=== PATIENT | male | born 1940 | race Caucasian/White ===

== ENCOUNTER 2017-08-09 12:52 | Emergency (ER) | payer MEDICARE, SELFPAY ==
[2017-08-09 13:16] VITALS: BP 161/83; PULSE 80; RESP 13; TEMP 36.6; O2SAT 97
--- NOTE | 2017-08-09 13:32 | DI.CT.S_ITS ---
PROCEDURE: CT ABDOMEN PELVIS W CON INDICATIONS: LLQ pain TECHNIQUE: After the administration of oral and intravenous contrast, 5 mm thick sections acquired from the diaphragms to the symphysis. 5 mm thick coronal and sagittal reformats were performed. For radiation dose reduction, the following was used: automated exposure control, adjustment of mA and/or kV according to patient size. COMPARISON: None. FINDINGS: Image quality: Excellent. ABDOMEN: Lung bases: Lung bases are clear. Heart size is normal. Solid organs: Liver is normal in size and enhancement. Gallbladder appears normal. Biliary system is non-dilated. Pancreas enhances normally. Spleen is normal in size and enhancement. No adrenal nodules. Kidneys are normal in size and enhancement, without hydronephrosis. There is several simple renal cortical cysts, the largest of which is exophytic from the upper posterior border of the left renal cortex, measuring up to 6.3 cm in maximal dimension. Peritoneum and bowel: Stomach, small bowel, and colon loops are normal in caliber and wall thickness. No free fluid or air. Nodes and vessels: No retroperitoneal or mesenteric adenopathy. Aorta and inferior vena cava are normal in caliber. Miscellaneous: No ventral hernias. PELVIS: Genitourinary: Bladder wall thickness is normal. A Husain catheter largely empties the bladder lumen. Miscellaneous: No inguinal hernias or adenopathy. Moderate diverticulosis is present along the sigmoid colon and there is definite acute diverticulitis involving the anterior border of the sigmoid colon at the junction with the descending colon where adjacent pericolonic edema is present but no peridiverticular abscess is found Bones: No suspicious bony lesions. No vertebral body compression fractures. IMPRESSION: Acute diverticulitis left lower quadrant at the junction of the descending [id number] sigmoid colon. No peridiverticular abscess is present. There is moderate diverticulosis elsewhere along the sigmoid colon. Husain catheter largely empties the lateral lumen. Dictated by: Carroll Sears M.D. on 08/09/2017 at 15:03 Approved by: Carroll Sears M.D. on 08/09/2017 at 15:09
[2017-08-09 14:04] LABS: Add Manual Diff / Slide Review NO; Basophils Percent Auto 0.3 % (0-2); Eosinophils Percent Auto 0.7 % (2-4); Hematocrit 45.5 % (41-53); Hemoglobin 15.5 g/dL (13.5-17.5); Lymphocytes Percent Auto 14.9 % (25-40); Mean Corpuscular Hemoglobin 30.3 PG (26-34); Mean Corpuscular Volume 88.9 fL (80-100); Monocytes Percent Auto 12.7 % (3-14); Neutrophils Absolute Auto 5600 /uL (3000-5900); Neutrophils Percent Auto 71.4 % (50-75); Platelet Count 183 X10^3/uL (150-400); Red Blood Cell Count 5.11 X10^6/uL (4.5-5.9); Red Cell Distribution Width 13.7 % (11.6-14.8); White Blood Cell Count 7.8 X10^3/uL (4.5-11.0)
[2017-08-09 14:17] LABS: Alanine Aminotransferase 26 IU/L (21-72); Albumin 4.2 g/dL (3.5-5.0); Albumin Globulin Ratio 1.3 (1.0-2.8); Alkaline Phosphatase 95 U/L (38-126); Aspartate Aminotransferase 26 IU/L (17-59); BUN Creatinine Ratio 17.8 (6-22); Blood Urea Nitrogen 16 mg/dL (9-20); Calcium 9.3 mg/dL (8.4-10.2); Carbon Dioxide 27 mmol/L (22-32); Chloride 99 mmol/L (98-107); Estimated Glomerular Filt Rate > 60.0 mL/min (>60); Globulin 3.3 g/dL (1.7-4.1); Glucose 87 mg/dL (80-110); HEMOLYSIS < 15 (0-50); Lipase 43 U/L (23-300); Potassium 4.3 mmol/L (3.4-5.1); Sodium 138 mmol/L (137-145); Total Protein 7.5 g/dL (6.3-8.2)
[2017-08-09 14:18] LABS: Lactate (Lactic Acid) 0.9 mmol/L (0.7-2.1)
[2017-08-09 14:32] VITALS: BP 135/81; PULSE 75; O2SAT 93
--- NOTE | 2017-08-09 15:35 | ED_ITS ---
HPI - Abdominal Pain General Chief Complaint: Abdominal Pain Stated Complaint: STATES, THINK I HAVE DIVERTICULITIS Time Seen by Provider: 08/09/17 13:03 History of Present Illness HPI narrative: HPI 76-year-old male with history of complicated diverticulitis with a now reversed ileostomy presents for evaluation of similar left lower quadrant pain of approximately 2 days duration, was evaluated in urgent care yesterday and started on ciprofloxacin and Flagyl; continues to take p.o. well, pass flatus and stool baseline, no dysuria or urinary frequency. No identifiable provoking or relieving factors. M/S/F/SocHx notable for: please see HPI; remainder reviewed with patient and in chart. ROS: Negative constitutional, eye, cardiovascular, pulmonary, GI, , MSK, skin , neurologic, psychiatric, endocrine unless noted in the HPI. Exam Gen: Pleasant, non-toxic appearing, resting comfortably. HEENT: NC, AT, PEERL, EOMI. Resp: Clear to auscultation bilaterally, normal work of breathing, no accessory muscle usage. Card: Regular rate and rhythm with no murmurs, rubs, or gallops, extremities warm and well perfused. GI: mild left lower quadrant tenderness to palpation, remainder of abdomen nontender to palpation, no rebound, no guarding. Well healed surgical scars. : No suprapubic tenderness to palpation. MSK: No visible deformities, strength and tone without visually appreciable deficit. Skin: Normal color with no visible lesions. Neuro: AO x 3, no facial asymmetry, vision and hearing WNL. Psych: Mood and affect appropriate. Labs / Imaging: WBC 7.8, Hb 15.5, Na 138, K 4.3, lactic 0.9, total bilirubin 1.0, AST 26, ALT 26 , ALP 95, lipase 43, Procalcitonin <0.05. UA - negative nitrate, negative leukocyte esterase, occasional bacteria. CT abdomen/pelvis: acute diverticulitis left lower quadrant of the junction the descending colon to anterior sigmoid colon. No diverticular abscess is present. There is moderate diverticulosis elsewhere along sigmoid colon. Husain catheter largely empties the bladder lumen. MDM Previous chart, nursing note, labs, imaging, and vitals reviewed. A: 76-year-old male with history of complicated diverticulitis with a now reversed ileostomy presents for evaluation of similar left lower quadrant pain of approximately 2 days duration, was evaluated in urgent care yesterday and started on ciprofloxacin and Flagyl; continues to take p.o. well, pass flatus and stool baseline, no dysuria or urinary frequency. DDx: diverticulitis, diverticulosis, constipation, colitis, acute appendicitis, pyelonephritis, UTI, uretolithiasis. Evaluation: CT with acute diverticulitis, no evidence complication by imaging, history, exam, labs. Recommend continuing ciprofloxacin and Flagyl. Return to care precautions provided. Given the patient's comp get past medical history recommend PCP follow-up in 1-2 days for repeat evaluation. Impression: diverticulitis (please reference below for remainder of encounter information) Related Data Home Medications Medication Instructions Recorded Confirmed acetaminophen 325 mg PO Q4-6H PRN 08/09/17 08/09/17 Previous Rx's Medication Instructions Recorded ciprofloxacin 500 mg tablet 500 mg PO BID #20 tab 08/08/17 metronidazole 500 mg tablet 500 mg PO TID #30 tab 08/08/17 Allergies Allergy/AdvReac Type Severity Reaction Status Date / Time codeine [CODEINE] AdvReac Mild UPSET Verified 08/08/17 12:39 STOMACH PFSH Social History Smoking Status: Never smoker Exam Initial Vital Signs Initial Vital Signs: Vital Signs Temperature 97.8 F 08/09/17 13:16 Pulse Rate 80 08/09/17 13:16 Respiratory Rate 13 08/09/17 13:16 Blood Pressure 161/83 H 08/09/17 13:16 Pulse Oximetry 97 08/09/17 13:16 Course Orders Ordered: ED Orders 08/09/17 13:32 CT abdomen pelvis w con Stat 08/09/17 13:55 Complete Blood Count AUTO DIFF Stat Comprehensive Metabolic Panel Stat Lactate (Lactic Acid) Stat Lipase Stat Vital Signs - 8 hr 08/09/17 13:16 08/09/17 14:32 Temperature 97.8 F Pulse Rate 80 75 Respiratory Rate 13 Blood Pressure 161/83 H Blood Pressure [Left Arm] 135/81 H Pulse Oximetry 97 93 MDM - Abdominal Pain Lab Data Result diagrams: 08/09/17 13:55 08/09/17 13:55 Lab Results 08/09/17 08/09/17 08/09/17 Range/Units 13:55 13:55 13:55 WBC 7.8 (4.5-11.0) X10^3/uL RBC 5.11 (4.5-5.9) X10^6/uL Hgb 15.5 (13.5-17.5) g/dL Hct 45.5 (41-53) % MCV 88.9 (80-100) fL MCH 30.3 (26-34) PG MCHC 34.0 (30-36) % RDW 13.7 (11.6-14.8) % Plt Count 183 (150-400) X10^3/uL Neut % (Auto) 71.4 (50-75) % Lymph % (Auto) 14.9 L (25-40) % [place] % (Auto) 12.7 (3-14) % Eos % (Auto) 0.7 L (2-4) % Baso % (Auto) 0.3 (0-2) % Neut # (Auto) 5600 (4433-4034) /uL Sodium 138 (137-145) mmol/L Potassium 4.3 (3.4-5.1) mmol/L Chloride 99 (98-107) mmol/L Carbon Dioxide 27 (22-32) mmol/L BUN 16 (9-20) mg/dL Creatinine 0.90 (0.66-1.25) mg/dL Estimated GFR > 60.0 (>60) mL/min BUN/Creatinine Ratio 17.8 (6-22) Glucose 87 (80-110) mg/dL Lactate 0.9 (0.7-2.1) mmol/L Calcium 9.3 (8.4-10.2) mg/dL Total Bilirubin 1.0 (0.2-1.3) mg/dL AST 26 (17-59) IU/L ALT 26 (21-72) IU/L Alkaline Phosphatase 95 (38-126) U/L Total Protein 7.5 (6.3-8.2) g/dL Albumin 4.2 (3.5-5.0) g/dL Globulin 3.3 (1.7-4.1) g/dL Albumin/Globulin Ratio 1.3 (1.0-2.8) Lipase 43 (23-300) U/L Discharge Plan Departure Prescriptions: No Action metronidazole [Flagyl] 500 mg tablet 500 mg PO TID Qty: 30 RF: 0 ciprofloxacin HCl [Cipro] 500 mg tablet 500 mg PO BID Qty: 20 RF: 0 acetaminophen 325 mg Tablet 325 mg PO Q4-6H PRN (Reason: Pain, Mild) RF: 0
== END 2017-08-09 15:59 | disposition home or self-care (01) ==
PROVIDERS: Emergency Provider Emergency Medicine; Family Provider Family Medicine; PCP Family Medicine
DX: K57.92 Diverticulitis of intestine, part unspecified, without perforation or abscess without bleeding (principal)
CPT/HCPCS: 36415; 74177; 80053; 83605; 83690; 85025; 99282; 99285; Q9967

== ENCOUNTER → 2017-08-16 06:51 | Outpatient (CLI) | payer MEDICARE, SELFPAY ==
[2017-08-16 07:51] LABS: Add Manual Diff / Slide Review NO; Basophils Percent Auto 0.5 % (0-2); Eosinophils Percent Auto 2.2 % (2-4); Hematocrit 46.6 % (41-53); Hemoglobin 15.5 g/dL (13.5-17.5); Lymphocytes Percent Auto 30.4 % (25-40); Mean Corpuscular HGB Conc 33.4 % (30-36); Mean Corpuscular Hemoglobin 29.7 PG (26-34); Mean Corpuscular Volume 88.9 fL (80-100); Neutrophils Absolute Auto 3100 /uL (3000-5900); Neutrophils Percent Auto 53.9 % (50-75); Platelet Count 246 X10^3/uL (150-400); Red Blood Cell Count 5.24 X10^6/uL (4.5-5.9); Red Cell Distribution Width 13.7 % (11.6-14.8); White Blood Cell Count 5.7 X10^3/uL (4.5-11.0)
[2017-08-16 09:01] LABS: Alanine Aminotransferase 28 IU/L (21-72); Albumin 3.9 g/dL (3.5-5.0); Albumin Globulin Ratio 1.1 (1.0-2.8); Alkaline Phosphatase 72 U/L (38-126); Aspartate Aminotransferase 30 IU/L (17-59); Bilirubin Total 0.7 mg/dL (0.2-1.3); Blood Urea Nitrogen 8 mg/dL (9-20); Calcium 9.4 mg/dL (8.4-10.2); Carbon Dioxide 27 mmol/L (22-32); Chloride 100 mmol/L (98-107); Cholesterol 173 mg/dL (140-199); Estimated Glomerular Filt Rate > 60.0 mL/min (>60); Globulin 3.5 g/dL (1.7-4.1); Glucose 84 mg/dL (80-110); HDL Cholesterol 52 mg/dL (40-60); HEMOLYSIS < 15 (0-50); LDL Cholesterol Calculated 110 mg/dL (<100); Potassium 4.2 mmol/L (3.4-5.1); Sodium 139 mmol/L (137-145); Total Protein 7.4 g/dL (6.3-8.2); Triglycerides 54 mg/dL (35-150)
[2017-08-16 09:25] LABS: Prostate Specific Antigen Scrn 0.873 ng/mL (0.1-4.0)
[2017-08-16 09:34] LABS: Thyroid Stimulating Hormone 4.82 uIU/mL (0.47-4.68)
== END ==
PROVIDERS: PCP Family Medicine; Visit Provider Family Medicine
DX: Z12.5 Encounter for screening for malignant neoplasm of prostate (principal); R68.83 Chills (without fever); E78.2 Mixed hyperlipidemia
CPT/HCPCS: 36415; 80053; 80061; 84443; 85025; G0103

== ENCOUNTER → 2017-09-16 10:12 | Outpatient (CLI) | payer MEDICARE, SELFPAY ==
[2017-09-16 11:33] LABS: Free T3, Triiodothyronine Free 3.16 pg/mL (2.77-5.27); Free T4, Direct Thyroxine 1.19 ng/dL (0.78-2.19)
[2017-09-16 11:46] LABS: Thyroid Stimulating Hormone 1.88 uIU/mL (0.47-4.68)
== END ==
PROVIDERS: PCP Family Medicine; Visit Provider Family Medicine
DX: E03.9 Hypothyroidism, unspecified (principal)
CPT/HCPCS: 84439; 84443; 84481

== ENCOUNTER 2017-11-16 19:39 | Emergency (ER) | payer MEDICARE, SELFPAY ==
[2017-11-16 19:50] VITALS: BP 176/113; PULSE 81; RESP 18; TEMP 36.8; O2SAT 97; BMI 19.8
[2017-11-16 19:59] VITALS: BP 158/77; PULSE 76; RESP 18; O2SAT 97
[2017-11-16] MEDS: SODIUM CHLORIDE 0.9% 1,000 ML 1000 ML IV (20:30)
[2017-11-16 20:34] LABS: Add Manual Diff / Slide Review NO; Basophils Percent Auto 0.4 % (0-2); Eosinophils Percent Auto 2.4 % (2-4); Hematocrit 44.8 % (41-53); Lymphocytes Percent Auto 28.6 % (25-40); Mean Corpuscular HGB Conc 33.5 % (30-36); Mean Corpuscular Hemoglobin 30.4 PG (26-34); Mean Corpuscular Volume 90.8 fL (80-100); Monocytes Percent Auto 16.4 % (3-14); Neutrophils Absolute Auto 3100 /uL (3000-5900); Neutrophils Percent Auto 52.2 % (50-75); Platelet Count 201 X10^3/uL (150-400); Red Blood Cell Count 4.94 X10^6/uL (4.5-5.9); Red Cell Distribution Width 14.6 % (11.6-14.8)
[2017-11-16 20:40] LABS: Blood Urea Nitrogen 18 mg/dL (9-20); Calcium 9.3 mg/dL (8.4-10.2); Carbon Dioxide 31 mmol/L (22-32); Chloride 103 mmol/L (98-107); Estimated Glomerular Filt Rate > 60.0 mL/min (>60); Glucose 90 mg/dL (80-110); HEMOLYSIS < 15 (0-50); Sodium 141 mmol/L (137-145)
[2017-11-16 20:50] VITALS: BP 162/55; PULSE 64; O2SAT 98
--- NOTE | 2017-11-16 21:08 | ED_ITS ---
HPI - Arrhythmia/Palpitations General Chief Complaint: Arrhythmia/Palpitations Stated Complaint: STATES HEART IS BEATING HARD, Time Seen by Provider: 11/16/17 20:03 Source: patient and family Mode of arrival: ambulatory Limitations: no limitations History of Present Illness HPI narrative: 77-year-old male with history of diverticulitis presents to the emergency department with multiple family members this evening with a chief complaint of palpitations and feeling generally unwell over the course of the day. His main complaint is of strong palpitations that have since resolved. He denies chest pain or shortness of breath. He denies any abdominal pain, nausea, vomiting or diarrhea. He has a recent history of diverticulitis and had been playing clear liquid diet up until the past few days. He denies fever or chills and is otherwise well. MD complaint: rapid heart beat, heart racing and palpitations Onset (ago): minute(s) Duration: now resolved Severity: mild Context: occurred during rest Associated symptoms: denies other symptoms Related Data Home Medications Medication Instructions Recorded Confirmed acetaminophen 325 mg PO Q4-6H PRN 08/09/17 08/25/17 Previous Rx's Medication Instructions Recorded ciprofloxacin 500 mg tablet 500 mg PO BID #20 tab 08/25/17 metronidazole 500 mg tablet 500 mg PO TID #30 tab 08/25/17 oxycodone-acetaminophen 5 mg-325 1 tab PO Q4-6H PRN #30 tab 11/08/17 mg tablet Allergies Allergy/AdvReac Type Severity Reaction Status Date / Time codeine [CODEINE] AdvReac Mild UPSET Verified 08/08/17 12:39 STOMACH Review of Systems Review of Systems All systems reviewed & are unremarkable except as noted in HPI and below Constitutional Denies chills, Denies fever(s), Denies lethargy and Reports weakness Eyes Denies change in vision, Denies eye discharge, Denies irritation and Denies loss of vision ENT Ears, Nose, Mouth, and Throat: Denies change in voice, Denies neck pain and Denies sore throat Cardiovascular Denies chest pain, Denies irregular heart rhythm, Denies lightheadedness, Reports palpitations, Denies dyspnea, Denies dyspnea on exertion and Denies orthopnea Respiratory Denies cough, Denies dyspnea, Denies dyspnea on exertion and Denies wheezing Gastrointestinal Gastrointestinal: Denies abdominal pain, Denies change in bowel habits, Denies diarrhea, Denies nausea and Denies vomiting Genitourinary Denies hematuria, Denies flank pain, Denies urinary incontinence and Denies urinary urgency Musculoskeletal Denies neck pain Integumentary/Breasts Denies pruritus, Denies erythema, Denies rash and Denies wounds Neurologic Denies confusion, Denies loss of vision and Reports weakness Psychiatric Denies anxiety, Denies confusion, Denies depression, Denies homicidal ideation and Denies suicidal ideation Endocrine Reports palpitations Hematologic/Lymphatic Denies easy bruising Allergic/Immunologic Denies wheezing [facility] Medical History Diverticular disease (Chronic) Social History Smoking Status: Never smoker Exam Narrative Exam Narrative: 77-year-old male in mild distress, visibly anxious, dehydrated with dry mucous membranes and tenting Initial Vital Signs Initial Vital Signs: Vital Signs Temperature 98.3 F 11/16/17 19:50 Pulse Rate 81 11/16/17 19:50 Respiratory Rate 18 11/16/17 19:50 Blood Pressure 176/113 H 11/16/17 19:50 Pulse Oximetry 97 11/16/17 19:50 Const General: cooperative, well developed, in distress and anxious Nutritional Appearance: well nourished Orientation: alert, awake, oriented x3 and not confused [facility] Head: normocephalic and atraumatic Ears: external ears normal and TM's normal bilaterally Nose: external nose normal and No nasal discharge Face and sinus: sinuses nontender, face symmetric, no sinus tenderness and dry mucous membranes Mouth: No oral mucosae normal and moist mucous membranes Teeth and gingiva: dentition normal Throat: tonsils normal and uvula midline Eyes General: appearance normal, both eyes and all related structures Eyelids: eyelids normal Conjunctivae: conjunctivae normal Sclera: sclerae normal Pupils: PERRL EOM: EOM intact bilaterally Neck Neck: normal visual inspection, trachea midline, No lymphadenopathy, No midline deformity and No JVD Lymphatic: No lymphedema Chest Chest: normal inspection of the chest Resp Effort & Inspection: normal respiratory effort, able to speak in complete sentences, no respiratory distress and no use of accessory muscles Auscultation: clear to auscultation bilaterally, no rales, no rhonchi and no wheezes Cardio Rate: regular rate Rhythm: regular rhythm Heart Sounds: no click, no gallops, no murmurs and no rubs Pulses: normal peripheral pulses GI Inspection: non-distended Palpation: soft, no hepatosplenomegaly, No guarding, No pulsatile mass and No tender Auscultation: normal bowel sounds Skin Other: warm, pink, dry, tenting Neuro General: alert, oriented x3, gait normal and no focal motor deficits Speech: speech normal Psych Appearance: well kempt Mental Status: mental status grossly normal Attitude: cooperative Thought Content: normal and suicidality Judgment: judgment good Course Orders Ordered: Discontinued Medications Sodium Chloride (Normal Saline 0.9%) 1,000 mls @ 1,000 mls/hr IV BOLUS ONE Stop: 11/16/17 21:27 Last Infusion: 11/16/17 21:33 Dose: 0 mls/hr Admin: 11/16/17 20:30 Dose: 1,000 mls/hr Vital Signs - 8 hr 11/16/17 19:50 11/16/17 19:59 11/16/17 20:50 Temperature 98.3 F Pulse Rate 81 76 64 Respiratory Rate 18 18 Blood Pressure 176/113 H Blood Pressure [Right Arm] 158/77 H 162/55 H Pulse Oximetry 97 97 98 11/16/17 21:34 11/16/17 21:52 Temperature Pulse Rate 62 59 L Respiratory Rate Blood Pressure Blood Pressure [Right Arm] 133/72 133/72 Pulse Oximetry 97 97 MDM - Arrhythmia/Palpitations Lab Data Result diagrams: 11/16/17 20:07 11/16/17 20:07 Lab Results 11/16/17 11/16/17 Range/Units 20:07 20:07 WBC 6.0 (4.5-11.0) X10^3/uL RBC 4.94 (4.5-5.9) X10^6/uL Hgb 15.0 (13.5-17.5) g/dL Hct 44.8 (41-53) % MCV 90.8 (80-100) fL MCH 30.4 (26-34) PG MCHC 33.5 (30-36) % RDW 14.6 (11.6-14.8) % Plt Count 201 (150-400) X10^3/uL Neut % (Auto) 52.2 (50-75) % Lymph % (Auto) 28.6 (25-40) % [place] % (Auto) 16.4 H (3-14) % Eos % (Auto) 2.4 (2-4) % Baso % (Auto) 0.4 (0-2) % Neut # (Auto) 3100 (1148-4278) /uL Sodium 141 (137-145) mmol/L Potassium 4.0 (3.4-5.1) mmol/L Chloride 103 (98-107) mmol/L Carbon Dioxide 31 (22-32) mmol/L BUN 18 (9-20) mg/dL Creatinine 0.90 (0.66-1.25) mg/dL Estimated GFR > 60.0 (>60) mL/min BUN/Creatinine Ratio 20.0 (6-22) Glucose 90 (80-110) mg/dL Calcium 9.3 (8.4-10.2) mg/dL Discharge Plan Departure Patient Disposition: Home Clinical Impression: Heart palpitations Discharge Date/Time: 11/16/17 22:31 Interventions: ED Discharge Assessment Last Done: 11/16/17 22:07 Instructions: DI for Palpitations Activity Restrictions/Additional Instructions: *You have been diagnosed with [ palpitations resolved ] *What to do: *Continue to take medications as directed *Follow up with your primary care provider in 2-3 days, call for an appointment. Let them know you were seen in the Emergency Department and that we ask that you be seen in follow up *Return to ER if you should have any new, worsening or concerning symptoms , such as [ ] Prescriptions: No Action oxycodone-acetaminophen 5-325 mg tablet 1 tab PO Q4-6H PRN (Reason: pain) Qty: 30 RF: 0 ciprofloxacin HCl [Cipro] 500 mg tablet 500 mg PO BID Qty: 20 RF: 2 metronidazole [Flagyl] 500 mg tablet 500 mg PO TID Qty: 30 RF: 2 acetaminophen 325 mg Tablet 325 mg PO Q4-6H PRN (Reason: Pain, Mild) RF: 0 Referrals: Gary Sanders MD [Primary Care Provider] -
[2017-11-16 21:34] VITALS: BP 133/72; PULSE 62; O2SAT 97
[2017-11-16 21:52] VITALS: BP 133/72; PULSE 59; O2SAT 97
== END 2017-11-16 22:31 | disposition home or self-care (01) ==
PROVIDERS: Emergency Provider Emergency Medicine; Family Provider Family Medicine; PCP Family Medicine
DX: R00.2 Palpitations (principal)
CPT/HCPCS: 80048; 85025; 93005; 96360; 99283; 99284

== ENCOUNTER → 2018-09-27 06:53 | Outpatient (CLI) | payer MEDICARE, SELFPAY ==
[2018-09-27 08:16] LABS: Alanine Aminotransferase 24 IU/L (21-72); Albumin 4.2 g/dL (3.5-5.0); Albumin Globulin Ratio 1.3 (1.0-2.8); Alkaline Phosphatase 78 U/L (38-126); Aspartate Aminotransferase 28 IU/L (17-59); BUN Creatinine Ratio 17.8 (6-22); Bilirubin Total 0.8 mg/dL (0.2-1.3); Blood Urea Nitrogen 16 mg/dL (9-20); Calcium 9.2 mg/dL (8.4-10.2); Carbon Dioxide 29 mmol/L (22-32); Chloride 102 mmol/L (98-107); Cholesterol 217 mg/dL (140-199); Estimated Glomerular Filt Rate > 60.0 mL/min (>60); Globulin 3.2 g/dL (1.7-4.1); Glucose 87 mg/dL (80-110); HDL Cholesterol 56 mg/dL (40-60); HEMOLYSIS < 15 (0-50); LDL Cholesterol Calculated 144 mg/dL (<100); Potassium 4.3 mmol/L (3.4-5.1); Sodium 139 mmol/L (137-145); Total Protein 7.4 g/dL (6.3-8.2); Triglycerides 84 mg/dL (35-150)
[2018-09-27 08:18] LABS: Add Manual Diff / Slide Review NO; Basophils Absolute Auto 0 /uL (0-100); Basophils Percent Auto 0.7 % (0-2); Eosinophils Absolute Auto 100 /uL (0-450); Eosinophils Percent Auto 2.9 % (2-4); Hematocrit 45.2 % (41-53); Hemoglobin 15.1 g/dL (13.5-17.5); Lymphocytes Absolute Auto 1700 /uL (1100-4500); Lymphocytes Percent Auto 33.7 % (25-40); Mean Corpuscular HGB Conc 33.3 % (30-36); Mean Corpuscular Hemoglobin 30.1 PG (26-34); Mean Corpuscular Volume 90.1 fL (80-100); Monocytes Absolute Auto 500 /uL (0-900); Neutrophils Absolute Auto 2600 /uL (1500-7000); Neutrophils Percent Auto 52.7 % (50-75); Platelet Count 210 X10^3/uL (150-400); Red Blood Cell Count 5.02 X10^6/uL (4.5-5.9); Red Cell Distribution Width 14.3 % (11.6-14.8)
[2018-09-27 08:45] LABS: Prostate Specific Antigen Scrn 0.733 ng/mL (0.1-4.0)
[2018-09-27 08:47] LABS: Thyroid Stimulating Hormone 3.29 uIU/mL (0.47-4.68)
== END ==
PROVIDERS: PCP Family Medicine; Visit Provider Family Medicine
DX: E78.2 Mixed hyperlipidemia (principal); Z12.5 Encounter for screening for malignant neoplasm of prostate
CPT/HCPCS: 36415; 80053; 80061; 84153; 84443; 85025; G0103

== ENCOUNTER → 2019-10-26 07:56 | Outpatient (CLI) | payer MEDICARE, SELFPAY ==
--- NOTE | 2019-10-26 07:57 | DI.RAD.S_ITS ---
PROCEDURE: XR LUMBAR SPINE MIN 4V INDICATIONS: chronic LBP TECHNIQUE: 4 views of the lumbar spine were acquired. COMPARISON: None. FINDINGS: Bones: 5 nonrib-bearing vertebrae are present. There is mild to moderate levoscoliosis of lumbar spine centered at L2-3 level. Degenerative endplate changes and bilateral facet arthrosis throughout lumbar spine is seen. No vertebral body compression fractures. No suspicious bony lesions. Soft tissues: Overlying bowel gas pattern is normal. No suspicious soft tissue calcifications. Oblique images: No pars defects. There is suggestion of bilateral neural foraminal narrowing at L3-4 and L4-5 levels. IMPRESSION: [id number] levoscoliosis of lumbar spine centered at L2-3 level. Degenerative disc disease throughout lumbar spine. No acute compression fracture or significant spondylolisthesis. Suggestion of bilateral neural foraminal narrowing at L3-4 and L4-5 levels. No gross pars defect. Dictated by: Dawood Palma M.D. on 10/26/2019 at 8:51 Approved by: Dawood Palma M.D. on 10/26/2019 at 8:53
--- NOTE | 2019-10-26 07:57 | DI.RAD.S_ITS ---
PROCEDURE: XR SHOULDER RT MIN 2V INDICATIONS: shoulder pain no trauma TECHNIQUE: 3 views of the shoulder were acquired. COMPARISON: None. FINDINGS: Bones: No fractures or dislocations. Postsurgical changes are noted in anterolateral aspect of humeral head from prior rotator cuff tendon repair. Acromioclavicular joint and glenohumeral joint osteoarthritic changes are seen. No suspicious bony lesions. Visualized ribs appear intact. Soft tissues: Small calcifications adjacent to superior lateral humeral head is seen. IMPRESSION: Postsurgical changes are noted in right humeral head. No acute fracture or dislocation. 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 Dictated by: Dawood Palma M.D. on 10/26/2019 at 8:53 Approved by: Dawood Palma M.D. on 10/26/2019 at 9:03
--- NOTE | 2019-10-26 07:57 | DI.RAD.S_ITS ---
PROCEDURE: XR SHOULDER LT MIN 2V INDICATIONS: shoulder pain no trauma TECHNIQUE: 3 views of the shoulder were acquired. COMPARISON: None. FINDINGS: Bones: No fractures or dislocations. Moderate acromioclavicular joint and glenohumeral joint osteoarthritic changes are seen. No suspicious bony lesions. Visualized ribs appear intact. Soft tissues: No suspicious soft tissue calcifications. IMPRESSION: No shoulder fracture or dislocation. Moderate shoulder joint osteoarthritis. Dictated by: Dawood Palma M.D. on 10/26/2019 at 9:03 Approved by: Dawood Palma M.D. on 10/26/2019 at 9:07
== END ==
PROVIDERS: PCP Family Medicine; Referring Provider Physical Medicine & Rehabilitation; Visit Provider Physical Medicine & Rehabilitation
DX: M54.5 Low back pain (principal); M51.16 Intervertebral disc disorders with radiculopathy, lumbar region; M41.86 Other forms of scoliosis, lumbar region; M75.40 Impingement syndrome of unspecified shoulder; M25.512 Pain in left shoulder; M25.511 Pain in right shoulder; M19.011 Primary osteoarthritis, right shoulder; M19.012 Primary osteoarthritis, left shoulder
CPT/HCPCS: 72110; 73030

== ENCOUNTER → 2019-11-24 08:17 | Outpatient (CLI) | payer MEDICARE, SELFPAY ==
[2019-11-25 16:09] LABS: COVID19 Sendout Not Detected (Not Detect)
== END ==
PROVIDERS: PCP Family Medicine; Visit Provider Physician Assistant
DX: Z11.59 Encounter for screening for other viral diseases (principal)
CPT/HCPCS: 87635

== ENCOUNTER 2019-11-27 09:25 | Outpatient (CLI) | payer MEDICARE, SELFPAY ==
[2019-11-27] VITALS (7 sets, daily range): BP systolic 148–193; BP diastolic 61–101; PULSE 54–86; RESP 10–16; TEMP 36.1; O2SAT 96–99
--- NOTE | 2019-11-27 09:26 | DI.RAD.S_ITS ---
PROCEDURE: PAIN L/S FACET INJ/BLK 1ST [place] COMPARISON: [facility], CR, XR LUMBAR SPINE MIN 4V, 10/26/2019, 7:49. INDICATIONS: SPONDYLOSIS FINDINGS: These fluoroscopic images were performed for intraoperative localization. On these images, spinal needles are seen on the right at the L2-3 and the L3-4 levels, as labeled on the films. The appropriate positions of the tips of the needles was confirmed by injection of a small amount nonionic contrast. IMPRESSION: Intraprocedural examination within normal limits. Dictated by: Chito Grace M.D. on 11/27/2019 at 10:13 Approved by: Chito Grace M.D. on 11/27/2019 at 10:13
[2019-11-27] MEDS: MIDAZOLAM 5 MG/5 ML VIAL IV (10:18)
[2019-11-27] MEDS: fentaNYL 100 MCG/2 ML INJ 50 MCG IV (10:18)
[2019-11-27] MEDS: IOPAMIDOL 15 ML VIAL 3 ML INJ (10:23)
[2019-11-27] MEDS: BETAMETHASONE 30 MG/5 ML MDV 12 MG INJ (10:23)
[2019-11-27] MEDS: BUPIVACAINE 0.5% (PF) VIAL 2 ML INJ (10:23)
[2019-11-27] MEDS: LIDOCAINE 1% 20 ML 10 ML INJ (10:25)
--- NOTE | 2019-11-27 10:41 | P.PCN_ITS ---
Date/Time/Diagnoses Date of procedure: 11/27/19 Time of procedure: 10:41 Pre-procedure diagnosis: 1. FACET ARTHROPATHY 2. AXIAL LBP 3. MULTILEVEL DDD Post-procedure diagnosis: same Procedure Notes Procedure: 1. FLUOROSCOPICALLY GUIDED CONTRAST CONTROLLED FACET JOINT INJECTIONS BILATERAL L2/3, L3/4 Indications: Evan is referred by for treatment of Axial LBP Physician: Saji Lancaster Total Fluoroscopy time (seconds): 12 Total sedation minutes: 15 Complications: none Procedure in detail & Post-procedure care: FINDINGS Multilevel Facet Arthropathy with Clinically significant axial LBP DESCRIPTION OF PROCEDURE Fluoroscopically guided, contrast-controlled bilateral L2/3, L3/4 facet joint injections. Following review of allergy and review of potential side effects and complications, including, but not necessarily limited to, infection, allergic reaction, local tissue breakdown, stroke, temporary or permanent nerve injury, paralysis, and possible , the patient indicated that the patient understood and agreed to proceed. An informed consent document was signed by the patient, witnessed by a nurse, and placed in the patient's chart. Additionally, other treatment options including medications, modalities, and physical therapy were reviewed with the patient. After review of previous anaesthesic history and IV conscious sedation the patient was deemed safe to proceed with today's procedure with IV conscious sedation as ASA class II designation. Safety time-out was performed to confirm patient ID, procedure to be performed and site of procedure. IV sedation was accomplished with a combination of 3mg of Versed and 50mcg of Fentanyl administered by the RN after DO order, titrated to patient comfort during the course of the procedure while the patient remained responsive to all verbal commands In the prone position, following sterile prep and drape of the lumbar region, the posterior aspect of the L2/3, L3/4 facet joints were identified fluoroscopically. The skin was anesthetized via a 25-gauge 1.5-inch needle with 1% lidocaine solution into the corresponding facet joints. At this point, a 22- gauge 3.5-inch spinal needle was atraumatically introduced and advanced under fluoroscopic guidance into the corresponding facet joints. Following negative aspiration, injections of approximately 0.2cc of Isovue 200 confirmed interarti cular placement without vascular uptake. The identical procedure was then performed at the L2/3, L3/4 facet joints on the left. Radiological data, including multiple fluoroscopic views of the lumbosacral spine, reveal a spinal needle at the L2/3, L3/4 facet joints bilaterally. Subsequent views show flow of contrast material both superiorly and inferiorly within the joint space without vascular or intrathecal uptake. At this point, a total of 0.5cc including a mixture of 0.25cc Marcaine and 0.25cc betamethasone was injected without complication into each of the corresponding facet joints. The patient tolerated the procedure well without signs or symptoms of complications prior to transfer to the recovery area continued monitoring without incident. The patient was then transferred to the recovery area where they were observed for an appropriate period of time after the injection. The patient reported a VAS score of 7 prior to the procedure and a post-procedure VAS of 0. POST OP INSTRUCTIONS The patient was provided a Pain Log to continue to record their response to the target-specific procedure prior to follow-up visit with their referring physi danita. Additionally, specific post-injection care instructions and a contact number to our office were provided if concerns arise regarding possible complications associated with the procedure are suspected.
== END 2019-11-27 11:00 | disposition home or self-care (01) ==
PROVIDERS: PCP Family Medicine; Referring Provider Physical Medicine & Rehabilitation; Visit Provider Physical Medicine & Rehabilitation
DX: M47.816 Spondylosis without myelopathy or radiculopathy, lumbar region (principal); M54.5 Low back pain; M51.36 Other intervertebral disc degeneration, lumbar region
CPT/HCPCS: 64493; 64494; 99152; J0702; J2250; J3010

== ENCOUNTER → 2020-01-17 07:14 | Outpatient (CLI) | payer MEDICARE, SELFPAY ==
[2020-01-17 08:27] LABS: Add Manual Diff / Slide Review NO; Basophils Absolute Auto 0 /uL (0-100); Basophils Percent Auto 0.6 % (0-2); Eosinophils Absolute Auto 200 /uL (0-450); Eosinophils Percent Auto 2.6 % (2-4); Hemoglobin 14.5 g/dL (13.5-17.5); Lymphocytes Absolute Auto 2300 /uL (1100-4500); Lymphocytes Percent Auto 30.4 % (25-40); Mean Corpuscular Hemoglobin 29.8 PG (26-34); Mean Corpuscular Volume 90.4 fL (80-100); Monocytes Absolute Auto 900 /uL (0-900); Monocytes Percent Auto 11.5 % (3-14); Neutrophils Absolute Auto 4200 /uL (1500-7000); Neutrophils Percent Auto 54.9 % (50-75); Platelet Count 203 X10^3/uL (150-400); Red Blood Cell Count 4.87 X10^6/uL (4.5-5.9); Red Cell Distribution Width 13.8 % (11.6-14.8); White Blood Cell Count 7.6 X10^3/uL (4.5-11.0)
[2020-01-17 08:56] LABS: Alanine Aminotransferase 19 IU/L (<50); Albumin 3.9 g/dL (3.5-5.0); Albumin Globulin Ratio 1.4 (1.0-2.8); Alkaline Phosphatase 88 U/L (38-126); Aspartate Aminotransferase 28 IU/L (17-59); BUN Creatinine Ratio 18.1 (6-22); Bilirubin Total 0.7 mg/dL (0.2-1.3); Blood Urea Nitrogen 15 mg/dL (9-20); Calcium 9.5 mg/dL (8.4-10.2); Carbon Dioxide 32 mmol/L (22-32); Chloride 105 mmol/L (98-107); Cholesterol 195 mg/dL (140-199); Estimated Glomerular Filt Rate > 60.0 mL/min (>60); Globulin 2.8 g/dL (1.7-4.1); Glucose 85 mg/dL (80-110); HDL Cholesterol 53 mg/dL (40-60); HEMOLYSIS < 15 (0-50); LDL Cholesterol Calculated 123 mg/dL (<100); Potassium 4.4 mmol/L (3.4-5.1); Sodium 140 mmol/L (137-145); Total Protein 6.7 g/dL (6.3-8.2); Triglycerides 94 mg/dL (35-150)
[2020-01-17 09:22] LABS: Prostate Specific Antigen Scrn 1.02 ng/mL (0.1-4.0)
== END ==
PROVIDERS: PCP Family Medicine; Referring Provider Family Medicine; Visit Provider Family Medicine
DX: E78.2 Mixed hyperlipidemia (principal); N35.919 Unspecified urethral stricture, male, unspecified site; Z12.5 Encounter for screening for malignant neoplasm of prostate
CPT/HCPCS: 36415; 80053; 80061; 85025; G0103

== ENCOUNTER → 2020-03-17 13:49 | Outpatient (CLI) | payer MEDICARE, SELFPAY ==
[2020-03-17 14:57] LABS: COVID19 -Nasal RAPID Negative (Negative)
== END ==
PROVIDERS: PCP Family Medicine; Visit Provider Physical Medicine & Rehabilitation
DX: Z01.812 Encounter for preprocedural laboratory examination (principal); Z20.822 Contact with and (suspected) exposure to COVID-19
CPT/HCPCS: 87635; C9803

== ENCOUNTER 2020-03-18 08:00 | Outpatient (CLI) | payer MEDICARE, SELFPAY ==
[2020-03-18] VITALS (11 sets, daily range): BP systolic 119–203; BP diastolic 56–85; PULSE 51–78; RESP 10–17; TEMP 36.1; O2SAT 96–100
--- NOTE | 2020-03-18 08:03 | DI.RAD.S_ITS ---
PROCEDURE: PAIN L/S FACET INJ/BLK 1ST [place] COMPARISON: [facility], , PAIN L/S FACET INJ/BLK 1ST [place], 11/27/2019, 10:23. INDICATIONS: SPONDYLOSIS FINDINGS: Fluoroscopic spot filming was performed to verify placement of a spinal needles on both sides at the L2, L3, and L4 levels, as labeled on the films. Appropriate location of the needle tips was confirmed by injection of iodinated contrast. IMPRESSION: Intraprocedural examination within normal limits. Dictated by: Chito Grace M.D. on 03/18/2020 at 10:39 Approved by: Chito Grace M.D. on 03/18/2020 at 10:39
[2020-03-18] MEDS: MIDAZOLAM 5 MG/5 ML VIAL IV (09:30)
[2020-03-18] MEDS: fentaNYL 100 MCG/2 ML INJ 50 MCG IV (09:34)
[2020-03-18] MEDS: BUPIVACAINE 0.5% (PF) VIAL 5 ML INJ (09:36)
[2020-03-18] MEDS: IOPAMIDOL 15 ML VIAL 3 ML INJ (09:37)
[2020-03-18] MEDS: LIDOCAINE 1% 20 ML 10 ML INJ (09:37)
--- NOTE | 2020-03-18 09:45 | PM.PROC.IR.1 ---
Date/Time/Diagnoses Date of procedure: 03/18/20 Time of procedure: 09:45 Pre-procedure diagnosis: 1. FACET ARTHROPATHY Post-procedure diagnosis: same Procedure Notes Procedure: 1. BILATERAL L2, L3 AND L4 DIAGNOSTIC MB BLOCKS Indications: Evan is referred by Dr. Corey for treatment of Bilateral Axial LBP. Physician: Saji Lancaster Total Fluoroscopy time (seconds): 10 Total sedation minutes: 12 Complications: none Procedure in detail & Post-procedure care: DESCRIPTION OF PROCEDURE Fluoroscopically guided, contrast-controlled bilateral L2, L3 and L4 medial branch blocks with 0.5cc of 0.5% Marcaine. Following review of allergy and review of potential side effects and complications, including, but not necessarily limited to, infection, allergic reaction, local tissue breakdown, nerve injury, paralysis, stroke and possible , the patient indicated that the patient understood and agreed to proceed. An informed consent document was signed by the patient, witnessed by a nurse, and placed in the patient's chart. After review of previous anaesthesic history and IV conscious sedation the patient was deemed safe to proceed with today's procedure with IV conscious sedation as ASA class II designation. Safety time-out was performed to confirm patient ID, procedure to be performed and site of procedure. IV sedation was accomplished with a combination of 3mg of Versed and 50mcg of Fentantyl was administered by the RN after DO order, titrated to patient comfort during the course of the procedure while the patient remained responsive to all verbal commands In the prone position, following sterile prep and drape of the lumbar region, the right L2, L3 and L4 anatomical location of the medial branch of the dorsal ramus was identified fluoroscopically. Subsequently an anesthetic skin wheal using 1% lidocaine solution was initiated at each of the anatomical spots. Subsequently then a 22-gauge 3.5-inch spinal needle was atraumatically introduced and advanced under fluoroscopic guidance at each of the corresponding sites at the right L2, L3 and L4 MB. After negative aspiration, 0.2cc of Isovue 200 was injected, confirming placement without vascular or intrathecal uptake. Subsequently then 0.5cc of 0.5% Marcaine solution was injected at each of the corresponding sites at the right L2, L3 and L4 medial branch locations. The identical procedure was replicated on the left. The patient tolerated the procedure well without signs or symptoms of complications. The patient tolerated the procedure well without signs or symptoms of complications prior to transfer to the recovery area continued monitoring without incident. Post-procedure, the patient was monitored initiating provocative activities to measure the amount of relief from block of the facetogenic pain. The patient reported a VAS of 7 prior to the procedure and a post-procedure VAS of 1. It has been a pleasure to assist in the diagnostic and therapeutic care of your patient. POST OP INSTRUCTIONS The patient was provided with a Pain Log to complete over the next several hours and subsequent days prior to the patient's follow up with the ordering physician. If the patient has demand planning manager relief to the solution applied, then they may be a candidate for medial branch rhizotomy. The patient is aware, was provided, once again, with a Pain Log and will follow up with the referring physician for review and clinical correlation
== END 2020-03-18 10:25 | disposition home or self-care (01) ==
LOC: RAD 08:03
PROVIDERS: PCP Family Medicine; Referring Provider Physical Medicine & Rehabilitation; Visit Provider Physical Medicine & Rehabilitation
DX: M47.816 Spondylosis without myelopathy or radiculopathy, lumbar region (principal)
CPT/HCPCS: 64493; 64494; 99152; J2250; J3010

== ENCOUNTER → 2020-04-04 12:54 | Outpatient (CLI) | payer MEDICARE, SELFPAY ==
[2020-04-04] MEDS: COVID-19 VACC #1, MRNA(MOD) 100 MCG/0.5 ML VIAL IM (13:08)
== END ==
PROVIDERS: PCP Family Medicine; Visit Provider Internal Medicine
DX: Z23 Encounter for immunization (principal)
CPT/HCPCS: 0011A; 91301

== ENCOUNTER → 2020-05-02 14:01 | Outpatient (CLI) | payer MEDICARE, SELFPAY ==
[2020-05-02] MEDS: COVID-19 VACC #2, MRNA(MOD) 100 MCG/0.5 ML VIAL IM (14:11)
== END ==
PROVIDERS: PCP Family Medicine; Visit Provider Internal Medicine
DX: Z23 Encounter for immunization (principal)
CPT/HCPCS: 0012A; 91301

== ENCOUNTER → 2020-05-13 13:47 | Outpatient (CLI) | payer MEDICARE, SELFPAY ==
[2020-05-13 14:29] LABS: COVID19 -Nasal RAPID Negative (Negative)
== END ==
PROVIDERS: PCP Family Medicine; Visit Provider Physical Medicine & Rehabilitation
DX: Z20.822 Contact with and (suspected) exposure to COVID-19 (principal)
CPT/HCPCS: 87635; C9803

== ENCOUNTER 2020-05-15 08:09 | Outpatient (CLI) | payer MEDICARE, SELFPAY ==
[2020-05-15] VITALS (7 sets, daily range): BP systolic 148–184; BP diastolic 68–86; PULSE 61–69; RESP 12–18; TEMP 36.5; O2SAT 97–99
--- NOTE | 2020-05-15 | DI.RAD.S_ITS ---
PROCEDURE: PAIN L/S TRANSFORAMINAL INJECT INDICATIONS: Radiculopathy, lumbar region COMPARISON: None. FINDINGS: Fluoroscopic spot filming was performed to verify placement of spinal needles at the right L2-3 level(s), as labeled on the films. Appropriate location(s) of the needle tip(s) was confirmed by injection of iodinated contrast. IMPRESSION: Right lumbar transforaminal injection. Please see procedural note for further details. Dictated by: Josafat Zhang M.D. on 05/15/2020 at 12:18 Approved by: Josafat Zhang M.D. on 05/15/2020 at 12:19
[2020-05-15] MEDS: fentaNYL 100 MCG/2 ML INJ 50 MCG IV (09:21)
[2020-05-15] MEDS: MIDAZOLAM 5 MG/5 ML VIAL IV (09:21)
[2020-05-15] MEDS: methylPREDNISolone acetate 80 MG/ML VIAL INJ (09:28)
[2020-05-15] MEDS: IOPAMIDOL 15 ML VIAL 3 ML INJ (09:28)
[2020-05-15] MEDS: BUPIVACAINE 0.25% (PF) VIAL 5 ML SUBCUT (09:28)
[2020-05-15] MEDS: DEXAMETHASONE 10 MG/ML VIAL 20 MG INJ (09:30)
--- NOTE | 2020-05-15 09:37 | P.PCN_ITS ---
Date/Time/Diagnoses Date of procedure: 05/15/20 Time of procedure: 09:37 Pre-procedure diagnosis: 1. FORAMINAL STENOSIS WITH LE SYMPTOMS Post-procedure diagnosis: same Procedure Notes Procedure: 1. FLUOROSCOPICALLY GUIDED CONTRAST CONTROLLED TRANSFORAMINAL EPIDURAL STEROID INJECTION - RIGHT L2/3 TFESI Indications: Evan is referred by Dr. Corey for treatment of Foraminal Stenosis with right LE Symptoms Physician: Saji Lancaster Total Fluoroscopy time (seconds): 9 Total sedation minutes: 11 Complications: none Procedure in detail & Post-procedure care: FINDINGS Foraminal Nerve Root Compression secondary to disc disease and facet hypertrophy DESCRIPTION OF PROCEDURE Following review of allergy and review of potential side effects and complications, including, but not necessarily limited to, infection, allergic reaction, local tissue breakdown, stroke, temporary or permanent nerve injury, paralysis, and possible , the patient indicated that the patient understood and agreed to proceed. An informed consent document was signed by the patient, witnessed by a nurse, and placed in the patient's chart. Additionally, other treatment options including medications, modalities, and physical therapy were reviewed with the patient. After review of previous anaesthesic history and IV conscious sedation the patient was deemed safe to proceed with today?s procedure with IV conscious sedation as ASA class II designation. Safety time-out was performed to confirm patient ID, procedure to be performed and site of procedure. IV sedation was accomplished with a combination of 2mg of Versed and 50mcg of Fentanyl was administered by the RN after DO order, titrated to patient comfort during the course of the procedure while the patient remained responsive to all verbal com mands In the prone position following sterile prep and drape of the lumbar region, the right L2/3 posterior neuroforamen was identified fluoroscopically. The skin was anesthetized via a 25-gauge 1.5-inch needle with 1% lidocaine solution. At this point, a 25-gauge 3.5-inch spinal needle was atraumatically introduced and advanced under fluoroscopic guidance through the posterior right L2/3 neuro foramen to approximately the anterior aspect of the canal. Depth was confirmed on lateral view. Following negative aspiration, injection of approximately 1.5 cc of Isovue 200 under live fluoroscopy in the AP view confirmed excellent flow along the nerve root, into the epidural space without vascular or intrathecal uptake observed Radiological data, including multiple fluoroscopic views of the lumbosacral spine, reveal a spinal needle at the right L2/3 posterior neuroforamen. Subsequent views show flow of contrast material flowing superiorly and inferiorly along the nerve root confirming epidural flow. Subsequently, a test dose of 1.5 cc of 1% lidocaine solution was administered and patient was observed for two minutes for signs or symptoms of complications, including abdominal pain, shortness of breath, bilateral upper or lower extremity weakness, nausea and vomiting, prior to steroid injection. At this point, a total of 3cc or 20mg of dexamethasone and 80mg depo medrol was injected without incident. The patient tolerated the procedure well without signs or symptoms of complications prior to transfer to the recovery area continued monitoring without incident. The patient was then transferred to the recovery area where they were observed for an appropriate time after the injection. The patient reported a VAS score of 7 prior to the procedure and a post-procedure VAS of 0. POST OP INSTRUCTIONS The patient was provided a Pain Log to continue to record their response to the target-specific procedure prior to follow-up visit with their referring physician. Additionally, specific post-injection care instructions and a contact number to our office were provided if concerns arise regarding possible complications associated with the procedure are suspected.
== END 2020-05-15 09:55 | disposition home or self-care (01) ==
PROVIDERS: PCP Family Medicine; Referring Provider Physical Medicine & Rehabilitation; Visit Provider Physical Medicine & Rehabilitation
DX: M48.061 Spinal stenosis, lumbar region without neurogenic claudication (principal); M51.16 Intervertebral disc disorders with radiculopathy, lumbar region
CPT/HCPCS: 64483; 99152; J1040; J1100; J2250; J3010

== ENCOUNTER → 2020-12-04 13:16 | Outpatient (CLI) | payer MEDICARE, SELFPAY | PROVIDERS: PCP Family Medicine; Referring Provider Family Medicine; Visit Provider Family Medicine | DX: R20.8 Other disturbances of skin sensation (principal); G62.9 Polyneuropathy, unspecified | CPT/HCPCS: 95886; 95910 ==

== ENCOUNTER → 2020-12-25 08:12 | Outpatient (CLI) | payer MEDICARE, SELFPAY ==
--- NOTE | 2020-12-25 08:18 | DI.MRI.S_ITS ---
PROCEDURE: MR LUMBAR SPINE WO CON INDICATIONS: Progressive lumbar stenosis TECHNIQUE: Noncontrast sagittal T1 spin echo and T2 fast echo, sagittal STIR, axial T1 and T2 fast spin echo through the lumbar spine. In cases with scoliosis, additional coronal T2 fast spin echo may be performed. COMPARISON: [facility], CT, CT ABDOMEN PELVIS W CON, 08/09/2017, 14:32. [facility], CR, SPINE LUMB 6+VW, 09/01/2015, 13:53. FINDINGS: Image quality: This examination is limited by involuntary motion artifact. Alignment and Curvature: Mild levoconvex scoliotic curvature is noted. There is minimal retrolisthesis at L1-L2, with minimal to mild retrolisthesis at L2-L3, L3-L4, and at L5-S1. Bone Marrow: Marrow is of normal overall signal. Scattered foci are seen, which are hyperintense on T1-weighted and T2-weighted imaging, which are most consistent with benign vertebral body hemangiomas. No acute vertebral body compression fractures. Spinal Cord: Conus medullaris terminates at the L1 level. Visualized cord demonstrates normal signal and size. Paraspinous Soft Tissues: No paravertebral masses. Along the posterior aspect the left kidney, there is an exophytic cyst seen that measures at least 5 cm. T12-L1: Normal appearance. L1-L2: Moderate loss of disc height is seen. Loss of disc signal is seen. Bridging endplate osteophytes are seen. Mild generalized disc bulge is seen. No significant neural foraminal or central canal narrowing can be seen. L2-L3: Moderate to severe loss of disc height and disc signal can be seen Reactive marrow endplate changes are seen which are hypointense on T1-weighted imaging and hyperintense on T2 weighted imaging, which is most consistent with edema (Modic type I changes). Moderate disc bulge is seen, which is eccentric to the right. Mild facet joint hypertrophy is seen. There is moderate right-sided and mild left-sided neural foraminal narrowing seen. Mild central canal narrowing is seen. L3-L4: Moderate to severe loss of disc height and disc signal can be seen. Reactive marrow endplate changes are seen, which are hyperintense on T1-weighted and T2-weighted imaging and most consistent with fatty metaplasia (Modic type II changes). At least moderate disc bulge is seen, which is eccentric to the right. Mild to moderate facet hypertrophy is seen. There is moderate to severe right-sided neural foraminal narrowing, with a degree of compression upon the exiting right L3 nerve root. Moderate left-sided neural foraminal narrowing is seen, with minimal compression upon the exiting left L3 nerve root. Moderate central canal narrowing is seen. L4-L5: Moderate to severe loss of disc height and disc signal can be seen. Reactive marrow endplate changes are seen, which are hyperintense on T1-weighted and T2-weighted imaging and most consistent with fatty metaplasia (Modic type II changes). At least moderate disc bulge is seen, which is eccentric to the left. Moderate facet joint hypertrophy is seen. Moderate bilateral neural foraminal narrowing can be seen, left worse than right. Mild central canal narrowing is seen. L5-S1: At least moderate loss of disc height and disc signal can be seen. Mild to moderate disc bulge is seen. Mild to moderate facet hypertrophy is seen. There is moderate to severe bilateral neural foraminal narrowing seen, right worse than left. There is a degree of compression seen upon the exiting nerve roots. Minimal central canal narrowing is seen. IMPRESSION: Levoconvex scoliosis and multiple levels degenerative change seen. Several sites of significant neural foraminal narrowing can be seen, with associated exiting nerve root compression. Moderate central canal narrowing is seen at L3-L4. Incidental note is made of: Prominent, simple appearing renal cyst Dictated by: Chito Grace M.D. on 12/25/2020 at 8:34 Approved by: Chito Grace M.D. on 12/25/2020 at 8:38
== END ==
PROVIDERS: PCP Family Medicine; Referring Provider Physical Medicine & Rehabilitation; Visit Provider Physical Medicine & Rehabilitation
DX: M48.061 Spinal stenosis, lumbar region without neurogenic claudication (principal); M48.07 Spinal stenosis, lumbosacral region; M47.26 Other spondylosis with radiculopathy, lumbar region; M47.27 Other spondylosis with radiculopathy, lumbosacral region; N28.1 Cyst of kidney, acquired; M41.86 Other forms of scoliosis, lumbar region
CPT/HCPCS: 72148

== ENCOUNTER → 2021-01-06 09:40 | Outpatient (CLI) | payer MEDICARE, SELFPAY ==
[2021-01-06 11:42] LABS: COVID19 -Nasal RAPID Negative (Negative)
== END ==
PROVIDERS: PCP Family Medicine; Visit Provider Physical Medicine & Rehabilitation
DX: Z20.822 Contact with and (suspected) exposure to COVID-19 (principal)
CPT/HCPCS: 87635; C9803

== ENCOUNTER 2021-01-08 07:31 | Outpatient (CLI) | payer MEDICARE, SELFPAY ==
[2021-01-08] VITALS (8 sets, daily range): BP systolic 138–192; BP diastolic 70–107; PULSE 44–75; RESP 14–23; TEMP 36.8; O2SAT 97–100
--- NOTE | 2021-01-08 07:32 | DI.RAD.S_ITS ---
PROCEDURE: PAIN L INTERLAMINAR/CAUDAL INJ INDICATIONS: SPONDYLOSIS COMPARISON: [facility], , PAIN L/S TRANSFORAMINAL INJECT, 05/15/2020, 9:24. FINDINGS: Fluoroscopic spot filming was performed to verify placement of a spinal needle at the L3-L4 level, as labeled on the films. Appropriate location of the needle tip was confirmed by injection of iodinated contrast. IMPRESSION: Intraprocedural examination within normal limits. Dictated by: Chito Grace M.D. on 01/08/2021 at 8:34 Approved by: Chito Grace M.D. on 01/08/2021 at 8:34
[2021-01-08] MEDS: fentaNYL 100 MCG/2 ML INJ 50 MCG IV (08:30)
[2021-01-08] MEDS: MIDAZOLAM 5 MG/5 ML VIAL IV (08:30)
[2021-01-08] MEDS: BUPIVACAINE 0.25% (PF) VIAL 30 ML (08:37)
[2021-01-08] MEDS: IOPAMIDOL 15 ML VIAL 3 ML INJ (08:37)
[2021-01-08] MEDS: DEXAMETHASONE 10 MG/ML VIAL 20 MG INJ (08:37)
[2021-01-08] MEDS: methylPREDNISolone acetate 80 MG/ML VIAL INJ (08:38)
--- NOTE | 2021-01-08 08:47 | P.PCN_ITS ---
Date/Time/Diagnoses Date of procedure: 01/08/21 Time of procedure: 08:48 Pre-procedure diagnosis: 1. HNP WITH RADICULAR FEATURES, 2. MULTILEVEL CENTRAL STENOSIS, Post-procedure diagnosis: same Procedure Notes Procedure: 1. FLUOROSCOPICALLY GUIDED CONTRAST CONTROLLED INTERLAMINAR EPIDURAL STEROID INJECTION - L3/4 Indications: Evan referred by Dr. Collins for treatment of Bilateral Foraminal Stenosis L>R LE symptoms. Physician: Saji Lancaster Total Fluoroscopy time (seconds): 8 Total sedation minutes: 9 Complications: none Procedure in detail & Post-procedure care: FINDINGS Multilevel Central Spinal Stenosis with Nerve Root Compression DESCRIPTION OF PROCEDURE Fluoroscopically guided, contrast-controlled L3/4 translaminar epidural steroid injection. Following review of allergy and review of potential side effects and complications, including, but not necessarily limited to, infection, allergic reaction, local tissue breakdown, temporary as well as permanent nerve injury, paralysis, stroke and possible , the patient indicated that the patient understood and agreed to proceed. An informed consent document was signed by the patient, witnessed by a nurse, and placed in the patient's chart. Additionally, other treatment options including modalities, medications, and physical therapy were reviewed with the patient. After review of previous anaesthesic history and IV conscious sedation the patient was deemed safe to proceed with today?s procedure with IV conscious sedation as ASA class II designation. Safety time-out was performed to confirm patient ID, procedure to be performed and site of procedure. IV sedation was accomplished with a combination of 2mg of Versed and 50mcg of Fentanyl was administered by the RN after DO order, titrated to patient comfort during the course of the procedure while the patient remained responsive to all verbal commands. In the prone position, following sterile prep and drape of the lumbar region, the L3/4 translaminar space was identified fluoroscopically. The skin was anesthetized via a 25-gauge, 1.5-inch needle with 1% lidocaine solution. At this point, a 22-gauge short bevel spinal needle was atraumatically introduced and advanced under fluoroscopic guidance into the region of the L3/4 translaminar space. Depth was confirmed on lateral view. Radiological data, including multiple fluoroscopic views of the lumbar spine, reveal a spinal needle at the L3/4 translaminar space. Lateral views then show placement of the needle in the epidural space. Subsequent views show contrast material flowing superiorly and inferiorly in the epidural space. No vascular or intrathecal uptake is observed. At this point, using loss of resistance technique with saline and air, the epidural space was entered. This was confirmed following negative aspiration with injection of approximately 1.5 cc of Isovue 200, showing excellent epidural flow without vascular or intrathecal uptake. At this point, 1cc of 1% lidocaine solution combined with 3cc or 20mg of dexamethasone and 80mg of depo medrol was injected without incident. The patient tolerated the procedure well without signs or symptoms of co mplications prior to transfer to the recovery area continued monitoring without incident. The patient was then transferred to the recovery area where they were observed for an appropriate period of time after the injection. The patient reported a VAS score of 7 prior to the procedure and a post- procedure VAS of 0. POST OP INSTRUCTIONS The patient was provided a Pain Log to continue to record their response to the target-specific procedure prior to follow-up visit with their referring physician. Additionally, specific post-injection care instructions and a contact number to our office were provided if concerns arise regarding possible complications associated with the procedure are suspected.
== END 2021-01-08 09:05 | disposition home or self-care (01) ==
LOC: RAD 07:31
PROVIDERS: PCP Family Medicine; Referring Provider Physical Medicine & Rehabilitation; Visit Provider Physical Medicine & Rehabilitation
DX: M51.16 Intervertebral disc disorders with radiculopathy, lumbar region (principal); M48.061 Spinal stenosis, lumbar region without neurogenic claudication
CPT/HCPCS: 62323; J1040; J1100; J2250; J3010

== ENCOUNTER → 2021-05-06 09:56 | Outpatient (CLI) | payer MEDICARE, SELFPAY ==
--- NOTE | 2021-05-06 09:58 | DI.RAD.S_ITS ---
PROCEDURE: XR SHOULDER LT MIN 2V INDICATIONS: left shoulder impingement TECHNIQUE: 3 views of the shoulder were acquired. COMPARISON: [facility], CR, XR SHOULDER LT MIN 2V, 10/26/2019, 7:49. FINDINGS: Bones: No fractures or dislocations. No suspicious bony lesions. Visualized ribs appear intact. Mild acromioclavicular joint Soft tissues: No suspicious soft tissue calcifications. IMPRESSION: No fracture. No osseous lesion. If symptoms and/or clinical suspicion for pathology persists, further assessment with repeat radiographs (7-10 days) or advanced imaging (e.g. CT, MRI or bone scan) should be considered. Dictated by: Narcisa Nassar MD, PhD on 05/06/2021 at 10:51 Approved by: Narcisa Nassar MD, PhD on 05/06/2021 at 10:53
== END ==
PROVIDERS: PCP Family Medicine; Referring Provider Physical Medicine & Rehabilitation; Visit Provider Physical Medicine & Rehabilitation
DX: M75.42 Impingement syndrome of left shoulder (principal); M47.26 Other spondylosis with radiculopathy, lumbar region; M41.50 Other secondary scoliosis, site unspecified
CPT/HCPCS: 20611; 73030; 99214; J0702

== ENCOUNTER → 2021-07-28 09:12 | Outpatient (CLI) | payer MEDICARE, SELFPAY ==
[2021-07-28 10:52] LABS: COVID19 -Nasal RAPID Negative (Negative)
== END ==
PROVIDERS: PCP Family Medicine; Visit Provider Physical Medicine & Rehabilitation
DX: Z20.822 Contact with and (suspected) exposure to COVID-19 (principal)
CPT/HCPCS: 87635; C9803

== ENCOUNTER 2021-07-30 08:08 | Outpatient (CLI) | payer MEDICARE, SELFPAY ==
[2021-07-30] VITALS (9 sets, daily range): BP systolic 103–190; BP diastolic 66–86; PULSE 42–78; RESP 15–22; TEMP 36.3; O2SAT 97–100
--- NOTE | 2021-07-30 08:11 | DI.RAD.S_ITS ---
PROCEDURE: PAIN L/S TRANSFORAMINAL INJECT INDICATIONS: SPONDYLOSIS COMPARISON: [facility], , PAIN L/S TRANSFORAMINAL INJECT, 05/15/2020, 9:24. FINDINGS: Fluoroscopic spot filming was performed to verify placement of a spinal needle at the L3-L4 level, as labeled on the films. Appropriate location of the needle tip was confirmed by injection of iodinated contrast. IMPRESSION: Intraprocedural examination within normal limits. Dictated by: Chito Grace M.D. on 07/30/2021 at 9:02 Approved by: Chito Grace M.D. on 07/30/2021 at 9:02
[2021-07-30] MEDS: MIDAZOLAM 2 MG/2 ML VIAL (08:57)
[2021-07-30] MEDS: IOPAMIDOL 15 ML VIAL INJ (09:01)
[2021-07-30] MEDS: BETAMETHASONE 30 MG/5 ML MDV (09:02)
[2021-07-30] MEDS: BUPIVACAINE 0.25% (PF) VIAL 30 ML (09:02)
[2021-07-30] MEDS: DEXAMETHASONE 10 MG/ML VIAL 20 MG (09:02)
--- NOTE | 2021-07-30 09:16 | P.PCN_ITS ---
Date/Time/Diagnoses Date of procedure: 07/30/21 Time of procedure: 09:16 Pre-procedure diagnosis: 1. FORAMINAL STENOSIS WITH LE SYMPTOMS Post-procedure diagnosis: same Procedure Notes Procedure: 1. FLUOROSCOPICALLY GUIDED CONTRAST CONTROLLED TRANSFORAMINAL EPIDURAL STEROID INJECTION - RIGHT L3/4 TFESI Indications: Evan is referred by Dr. Pascual for treatment of Foraminal Stenosis with right LE Symptoms Physician: Saji Lancaster Total Fluoroscopy time (seconds): 9 Total sedation minutes: 13 Complications: none Procedure in detail & Post-procedure care: FINDINGS Foraminal Nerve Root Compression secondary to disc disease and facet hypertrophy DESCRIPTION OF PROCEDURE Following review of allergy and review of potential side effects and complications, including, but not necessarily limited to, infection, allergic reaction, local tissue breakdown, stroke, temporary or permanent nerve injury, paralysis, and possible , the patient indicated that the patient understood and agreed to proceed. An informed consent document was signed by the patient, witnessed by a nurse, and placed in the patient's chart. Additionally, other treatment options including medications, modalities, and physical therapy were reviewed with the patient. After review of previous anaesthesic history and IV conscious sedation the patient was deemed safe to proceed with today?s procedure with IV conscious sedation as ASA class II designation. Safety time-out was performed to confirm patient ID, procedure to be performed and site of procedure. IV sedation was accomplished with a combination of 2mg of Versed was administered by the RN after DO order, titrated to patient comfort during the course of the procedure while the patient remained responsive to all verbal commands In the prone position following sterile prep and drape of the lumbar region, the right L3/4 posterior neuroforamen was identified fluoroscopically. The skin was anesthetized via a 25-gauge 1.5-inch needle with 1% lidocaine solution. At this point, a 25-gauge 3.5-inch spinal needle was atraumatically introduced and advanced under fluoroscopic guidance through the posterior right L3/4 neuroforamen to approximately the anterior aspect of the canal. Depth was confirmed on lateral view. Following negative aspiration, injection of approximately 1.5 cc of Isovue 200 under live fluoroscopy in the AP view conf irmed excellent flow along the nerve root, into the epidural space without vascular or intrathecal uptake observed Radiological data, including multiple fluoroscopic views of the lumbosacral spine, reveal a spinal needle at the right L3/4 posterior neuroforamen. Subsequent views show flow of contrast material flowing superiorly and inferiorly along the nerve root confirming epidural flow. Subsequently, a test dose of 1.5 cc of 1% lidocaine solution was administered and patient was observed for two minutes for signs or symptoms of complications, including abdominal pain, shortness of breath, bilateral upper or lower extremity weakness, nausea and vomiting, prior to steroid injection. At this point, a total of 3cc or 20mg of dexamethasone and 6mg of betamethasone was injected without incident. The patient tolerated the procedure well without signs or symptoms of complications prior to transfer to the recovery area continued monitoring without incident. The patient was then transferred to the recovery area where they were observed for an appropriate time after the injection. The patient reported a VAS score of 7 prior to the procedure and a post-procedure VAS of 0. POST OP INSTRUCTIONS The patient was provided a Pain Log to continue to record their response to the target-specific procedure prior to follow-up visit with their referring phy sician. Additionally, specific post-injection care instructions and a contact number to our office were provided if concerns arise regarding possible complications associated with the procedure are suspected.
== END 2021-07-30 09:35 | disposition home or self-care (01) ==
LOC: RAD 08:11
PROVIDERS: PCP Family Medicine; Referring Provider Physical Medicine & Rehabilitation; Visit Provider Physical Medicine & Rehabilitation
DX: M48.061 Spinal stenosis, lumbar region without neurogenic claudication (principal); M51.16 Intervertebral disc disorders with radiculopathy, lumbar region
CPT/HCPCS: 64483; 99152; J0702; J1100; J2250

== ENCOUNTER 2021-09-13 14:07 | Emergency (ER) | payer MEDICARE, SELFPAY ==
[2021-09-13] VITALS (39 sets, daily range): BP systolic 140–232; BP diastolic 75–114; PULSE 50–96; RESP 12–23; TEMP 36.7; O2SAT 94–99
--- NOTE | 2021-09-13 14:17 | DI.RAD.S_ITS ---
PROCEDURE: XR CHEST 1V INDICATIONS: chest pain TECHNIQUE: One view of the chest was acquired. COMPARISON: None. FINDINGS: Surgical changes and devices: None. Lungs and pleura: Lungs are clear. No pleural effusions or pneumothorax. Interstitial prominence is unchanged compared to the prior study and is likely chronic. Mediastinum: Mediastinal contours appear normal. Heart size is normal. The aorta is tortuous. Bones and chest wall: There are degenerative changes of the right shoulder No suspicious bony lesions. Overlying soft tissues appear unremarkable. IMPRESSION: No acute cardiopulmonary abnormality. Dictated by: Brannon Ricardo M.D. on 09/13/2021 at 14:26 Approved by: Brannon Ricardo M.D. on 09/13/2021 at 14:27
--- NOTE | 2021-09-13 14:29 | PC.NURSE ---
sob for weeks, hx of irregular heart beats since , normally this does not bother him, active. pvc noted on threat monitoring analyst
[2021-09-13 14:46] LABS: Add Manual Diff / Slide Review NO; Basophils Absolute Auto 0 /uL (0-100); Basophils Percent Auto 0.5 % (0-2); Eosinophils Absolute Auto 100 /uL (0-450); Eosinophils Percent Auto 1.3 % (2-4); Hematocrit 46.7 % (41-53); Hemoglobin 15.6 g/dL (13.5-17.5); Lymphocytes Absolute Auto 2000 /uL (1100-4500); Lymphocytes Percent Auto 26.4 % (25-40); Mean Corpuscular HGB Conc 33.5 % (30-36); Mean Corpuscular Hemoglobin 29.6 PG (26-34); Mean Corpuscular Volume 88.4 fL (80-100); Monocytes Absolute Auto 800 /uL (0-900); Monocytes Percent Auto 10.9 % (3-14); Neutrophils Absolute Auto 4600 /uL (1500-7000); Neutrophils Percent Auto 60.9 % (50-75); Platelet Count 200 X10^3/uL (150-400); Red Blood Cell Count 5.28 X10^6/uL (4.5-5.9); Red Cell Distribution Width 13.8 % (11.6-14.8); White Blood Cell Count 7.5 X10^3/uL (4.5-11.0)
[2021-09-13 14:50] LABS: Alanine Aminotransferase 18 IU/L (<50); Albumin 4.6 g/dL (3.5-5.0); Albumin Globulin Ratio 1.5 (1.0-2.8); Alkaline Phosphatase 81 U/L (38-126); Aspartate Aminotransferase 27 IU/L (17-59); BUN Creatinine Ratio 15.6 (6-22); Bilirubin Total 0.6 mg/dL (0.2-1.3); Blood Urea Nitrogen 14 mg/dL (9-20); Calcium 9.3 mg/dL (8.4-10.2); Carbon Dioxide 25 mmol/L (22-32); Chloride 105 mmol/L (98-107); Creatine Kinase 38 U/L (55-170); Estimated Glomerular Filt Rate > 60 mL/min (>60); Globulin 3.1 g/dL (1.7-4.1); Glucose 112 mg/dL (80-110); Lipase 69 U/L (23-300); Magnesium 2.2 mg/dL (1.6-2.3); Sodium 139 mmol/L (137-145); Total Protein 7.7 g/dL (6.3-8.2)
[2021-09-13 14:59] LABS: HEMOLYSIS < 15 (0-50)
[2021-09-13 15:03] LABS: Troponin I < 0.012 ng/mL (0.01-0.034)
--- NOTE | 2021-09-13 16:53 | PC.NURSE ---
pt self caths for urine, pt walked to bathroom, steady gate and self cathed to urinate.
--- NOTE | 2021-09-13 16:59 | ED.SOB ---
HPI - SOB/Dyspnea General Chief Complaint: Shortness of Breath/Dyspnea Stated Complaint: sob heart flutters since Time Seen by Provider: 09/13/21 16:38 Source: patient Mode of arrival: Ambulatory History of Present Illness HPI Narrative: This is an 80-year-old male who comes in with shortness of breath which he states it has been present for several months he states it is not any worse than normal but he can feel his heart jumping around. He states he is always had skipped beats ever since he was a small child but he can usually feel it he has been told multiple times by physicians. He states it has been persistent although will occasionally resolve. Feels a little bit weak but has not had any falls, dizziness or syncope. He is had a mild headache recently. He denies any nasal congestion, fevers or cough. No nausea or vomiting. No chest pain or pressure. He is had some mild swelling in his ankles but not regularly and very mildly. Patient does not have any known cardiac history no prior cardiac stents he had a stress test 7-8 years ago. He is had hernia surgery, prior rotator cuff, he had an ileostomy which was reversed secondary to resection for diverticulitis remotely. He is had interventions with Dr. 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 No tobacco, alcohol or illicit. His only medications are Tylenol and an occasional Percocet. Dr. Pascual is his primary care. He is accompanied by his . Related Data Home Medications Medication Instructions Recorded Confirmed acetaminophen 325 mg tablet 650 mg PO Q6H PRN 02/11/20 05/06/21 (Tylenol) Previous Rx's Medication Instructions Recorded oxycodone-acetaminophen 5 mg-325 1 tab PO Q4-6H PRN pain #30 tabs 01/16/20 mg tablet varicella-zoster glycoE [id number] 0.5 ml IM ONCE #1 ea 01/16/20 adj(PF) 50 mcg/0.5 mL IM susp, kit (Shingrix (PF)) Allergies Allergy/AdvReac Type Severity Reaction Status Date / Time codeine [CODEINE] AdvReac Mild UPSET Verified 07/06/21 10:07 STOMACH Review of Systems Review of Systems ROS Unobtainable: All systems reviewed & are unremarkable except as noted in HPI and below Patient History Medical History Cataracts, bilateral Chronic GERD Diverticular disease Diverticulitis of intestine (10/15/14) DJD of both shoulders Facet arthropathy, lumbar Impingement syndrome of left shoulder Lumbar radiculopathy Rotator cuff arthropathy Rotator cuff arthropathy of right shoulder 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 Shoulder impingement syndrome Urethral stricture Surgical History H/O ileostomy S/P TURP Family History Father Heart disease Social History Smoking Status: Never smoker Smoking Status: Never smoker Substance Use Type: does not use Exam Narrative Exam Narrative: GENERAL: Alert and oriented x three, male in mild distress. HEENT: Head normocephalic, atraumatic, EOMI, pupils reactive, face symmetric, moist mucous membranes NECK: Supple, full range of motion CARDIOVASCULAR: Regular rate and rhythm although patient does have intermittent extra beats, without murmurs, rubs or gallops. No JVD. No swelling bilateral lower extremities. RESPIRATORY: Breath sounds equal bilaterally, no wheezes rales or rhonchi. No tachypnea, no accessory muscle use. ABDOMEN: Soft, nontender. Normoactive bowel sounds all 4 quadrants. No guarding or rebound, rigidity, no mass : No CVA tenderness EXTREMITIES: Normal range of motion, no clubbing or edema. Neurovascularly intact NEUROLOGICAL: Cranial nerves II through XII grossly intact. Moving all extremities SKIN: Warm, dry, no petechiae, no rashes or lesions. Initial Vital Signs Initial Vital Signs: Vital Signs Temperature 98.1 F 09/13/21 14:14 Pulse Rate 50 L 09/13/21 14:14 Respiratory Rate 20 09/13/21 14:14 Blood Pressure 140/84 09/13/21 14:14 Pulse Oximetry 98 09/13/21 14:14 Oxygen Delivery Method 09/13/21 14:14 Course Orders Ordered: ED Orders 09/13/21 14:17 XR chest 1V Stat EKG-12 Lead Stat 09/13/21 14:24 COVID19 -Nasal RAPID/Pre-Proc Stat Complete Blood Count AUTO DIFF Stat Comprehensive Metabolic Panel Stat Lipase Stat Magnesium Stat Troponin & CK Cardiac Panel Stat 09/13/21 17:12 EKG-12 Lead Stat 09/13/21 17:18 BNP [NT-proBNP (BNP-Adult 18+)] Stat Trop I [Troponin I] Stat Reevaluation(s) Reevaluation #1: Patient continues to feel extra beats but no other symptoms currently. Has frequent PVCs but no arrythmias during his stay. Updated troponin, EKG, covid swab show no acute changes. Plan for f/u with PCP for holter or ziopatch and return for new or worsening symptoms. Vital Signs Vital signs: Vital Signs - 8 hr 09/13/21 14:14 09/13/21 14:25 09/13/21 14:27 Temperature 98.1 F Pulse Rate 50 L 84 Respiratory Rate 20 20 Blood Pressure 140/84 209/106 H Pulse Oximetry 98 98 Oxygen Delivery Method Room Air 09/13/21 14:27 09/13/21 14:29 09/13/21 14:29 Temperature Pulse Rate 88 83 Respiratory Rate 20 20 Blood Pressure 200/87 H Pulse Oximetry 98 98 Oxygen Delivery Method 09/13/21 14:30 09/13/21 14:30 09/13/21 14:40 Temperature Pulse Rate 83 96 H Respiratory Rate 19 20 Blood Pressure 232/98 H 200/89 H Pulse Oximetry 98 97 Oxygen Delivery Method 09/13/21 14:42 09/13/21 14:42 09/13/21 14:45 Temperature Pulse Rate 84 Respiratory Rate 19 Blood Pressure 200/89 H 203/91 H Pulse Oximetry 97 Oxygen Delivery Method 09/13/21 14:45 09/13/21 14:50 09/13/21 15:00 Temperature Pulse Rate 84 84 Respiratory Rate 18 Blood Pressure 199/93 H Pulse Oximetry 97 96 Oxygen Delivery Method 09/13/21 15:00 09/13/21 15:10 09/13/21 15:15 Temperature Pulse Rate 80 74 Respiratory Rate 20 22 Blood Pressure 182/88 H Pulse Oximetry 96 97 Oxygen Delivery Method 09/13/21 15:15 09/13/21 15:20 09/13/21 15:30 Temperature Pulse Rate 70 66 Respiratory Rate 22 20 Blood Pressure 188/83 H Pulse Oximetry 98 97 Oxygen Delivery Method 09/13/21 15:30 09/13/21 15:30 09/13/21 15:36 Temperature Pulse Rate 68 82 Respiratory Rate 20 20 Blood Pressure 188/83 H Pulse Oximetry 97 96 Oxygen Delivery Method 09/13/21 15:40 09/13/21 15:40 09/13/21 15:45 Temperature Pulse Rate 82 Respiratory Rate 15 Blood Pressure 194/114 H 178/83 H Pulse Oximetry 98 Oxygen Delivery Method 09/13/21 15:45 09/13/21 15:50 09/13/21 16:00 Temperature Pulse Rate 67 75 Respiratory Rate 15 12 Blood Pressure 201/88 H Pulse Oximetry 96 97 Oxygen Delivery Method 09/13/21 16:00 09/13/21 16:10 09/13/21 16:15 Temperature Pulse Rate 78 82 Respiratory Rate 16 15 Blood Pressure 211/93 H Pulse Oximetry 97 97 Oxygen Delivery Method 09/13/21 16:15 09/13/21 16:20 09/13/21 16:30 Temperature Pulse Rate 78 85 Respiratory Rate 19 20 Blood Pressure 219/95 H Pulse Oximetry 97 98 Oxygen Delivery Method 09/13/21 16:30 09/13/21 16:50 09/13/21 16:51 Temperature Pulse Rate 83 83 Respiratory Rate 20 20 Blood Pressure 185/100 H Pulse Oximetry 97 94 Oxygen Delivery Method 09/13/21 16:51 09/13/21 17:00 09/13/21 17:10 Temperature Pulse Rate 85 85 80 Respiratory Rate 20 20 19 Blood Pressure 185/100 H Pulse Oximetry 99 98 98 Oxygen Delivery Method 09/13/21 17:20 09/13/21 17:24 09/13/21 17:24 Temperature Pulse Rate 81 82 Respiratory Rate 20 20 Blood Pressure 189/79 H Pulse Oximetry 99 98 Oxygen Delivery Method MDM - SOB/Dyspnea Lab Data Result diagrams: 09/13/21 14:24 09/13/21 14:24 Labs: Lab Results 09/13/21 09/13/21 09/13/21 Range/Units 14:24 14:24 14:24 WBC 7.5 (4.5-11.0) X10^3/uL RBC 5.28 (4.5-5.9) X10^6/uL Hgb 15.6 (13.5-17.5) g/dL Hct 46.7 (41-53) % MCV 88.4 (80-100) fL MCH 29.6 (26-34) PG MCHC 33.5 (30-36) % RDW 13.8 (11.6-14.8) % Plt Count 200 (150-400) X10^3/uL Neut % (Auto) 60.9 (50-75) % Lymph % (Auto) 26.4 (25-40) % Brantley % (Auto) 10.9 (3-14) % Eos % (Auto) 1.3 L (2-4) % Baso % (Auto) 0.5 (0-2) % Neut # (Auto) 4600 (5212-7600) /uL Lymph # (Auto) 2000 (6500-4038) /uL Brantley # (Auto) 800 (0-900) /uL Eos # (Auto) 100 (0-450) /uL Baso # (Auto) 0 (0-100) /uL Sodium 139 (137-145) mmol/L Potassium 4.0 (3.4-5.1) mmol/L Chloride 105 (98-107) mmol/L Carbon Dioxide 25 (22-32) mmol/L BUN 14 (9-20) mg/dL Creatinine 0.90 (0.66-1.25) mg/dL Estimated GFR > 60 (>60) mL/min BUN/Creatinine Ratio 15.6 (6-22) Glucose 112 H (80-110) mg/dL Calcium 9.3 (8.4-10.2) mg/dL Magnesium 2.2 (1.6-2.3) mg/dL Total Bilirubin 0.6 (0.2-1.3) mg/dL AST 27 (17-59) IU/L ALT 18 (<50) IU/L Alkaline Phosphatase 81 (38-126) U/L Total Creatine Kinase 38 L (55-170) U/L CK-MB (CK-2) TNP CK-MB (CK-2) Rel Index TNP Troponin I < 0.012 (0.01-0.034) ng/mL NT-Pro-B Natriuret Pep (<450) pg/mL Total Protein 7.7 (6.3-8.2) g/dL Albumin 4.6 (3.5-5.0) g/dL Globulin 3.1 (1.7-4.1) g/dL Albumin/Globulin Ratio 1.5 (1.0-2.8) Lipase 69 (23-300) U/L SARS-CoV-2 (PCR) Negative (Negative) 09/13/21 09/13/21 Range/Units 17:18 17:18 WBC (4.5-11.0) X10^3/uL RBC (4.5-5.9) X10^6/uL Hgb (13.5-17.5) g/dL Hct (41-53) % MCV (80-100) fL MCH (26-34) PG MCHC (30-36) % RDW (11.6-14.8) % Plt Count (150-400) X10^3/uL Neut % (Auto) (50-75) % Lymph % (Auto) (25-40) % Brantley % (Auto) (3-14) % Eos % (Auto) (2-4) % Baso % (Auto) (0-2) % Neut # (Auto) (0485-2082) /uL Lymph # (Auto) (2255-8308) /uL Brantley # (Auto) (0-900) /uL Eos # (Auto) (0-450) /uL Baso # (Auto) (0-100) /uL Sodium (137-145) mmol/L Potassium (3.4-5.1) mmol/L Chloride (98-107) mmol/L Carbon Dioxide (22-32) mmol/L BUN (9-20) mg/dL Creatinine (0.66-1.25) mg/dL Estimated GFR (>60) mL/min BUN/Creatinine Ratio (6-22) Glucose (80-110) mg/dL Calcium (8.4-10.2) mg/dL Magnesium (1.6-2.3) mg/dL Total Bilirubin (0.2-1.3) mg/dL AST (17-59) IU/L ALT (<50) IU/L Alkaline Phosphatase (38-126) U/L Total Creatine Kinase (55-170) U/L CK-MB (CK-2) CK-MB (CK-2) Rel Index Troponin I < 0.012 (0.01-0.034) ng/mL NT-Pro-B Natriuret Pep 321 (<450) pg/mL Total Protein (6.3-8.2) g/dL Albumin (3.5-5.0) g/dL Globulin (1.7-4.1) g/dL Albumin/Globulin Ratio (1.0-2.8) Lipase (23-300) U/L SARS-CoV-2 (PCR) (Negative) Imaging Data Chest x-ray: Radiologist's Impression: [address] [address] XRay Report Signed Patient: Evan Ojeda MR#: [id number] : 1940 Acct:[id number] Age/Sex: 80 / M Date of Service: 09/13/21 Loc: ED Accession Number: [id number] ?? Procedure: XR chest 1V Ordering Provider: Lana Bill D.O. PROCEDURE:? XR CHEST 1V ? INDICATIONS:? chest pain ? TECHNIQUE:? One view of the chest was acquired.? ? COMPARISON:? None. ? FINDINGS:? ? Surgical changes and devices:? None.? ? Lungs and pleura:? Lungs are clear.? No pleural effusions or pneumothorax.? Interstitial prominence is unchanged compared to the prior study and is likely chronic.? ? Mediastinum:? Mediastinal contours appear normal.? Heart size is normal.? The aorta is tortuous. ? Bones and chest wall:? There are degenerative changes of the right shoulder? No suspicious bony lesions.? Overlying soft tissues appear unremarkable.? ? IMPRESSION:? No acute cardiopulmonary abnormality. ? ? ? Dictated by: Brannon Ricardo M.D. on 09/13/2021 at 14:26 ? ? Approved by: Brannon Ricardo M.D. on 09/13/2021 at 14:27?? ECG Data Attestation: I personally reviewed and interpreted this ECG as follows: Interpretation: Sinus rhythm with frequent PVCs. Left axis. Incomplete right bundle. Rate of 92 SC 182 QRS of [address] elevation depression noted. EKG 2 shows sinus rhythm frequent PVCs sometimes normal bigeminal pattern. Left axis deviation, rate of 80 SC 188 QRS of 104 and QTC 484. No acute ST elevation depression noted. Patient has prior from 11/16/2017 which appears similar and all the way back to 2016 with frequent PVCs throughout his EKGs. [facility] Narrative Medical decision making narrative: This is a 80-year-old male who comes in with frequent PVCs and is having palpitations. He is felt little bit weak but has not had any other significant or new symptoms. Patient's labs do not show any electrolyte abnormalities, renal function and blood work are otherwise normal troponins negative x2 with no chest pain or new shortness of breath. No ST changes or appreciated. COVID swab is negative. Plan have patient follow up with primary care as he has been feeling more frequently currently to have a Holter or ZIO patch as outpatient and return precautions. Discharge Plan Departure Patient Disposition: Home Clinical Impression: Frequent PVCs Instructions: DI for Premature Ventricular Beats Activity Restrictions/Additional Instructions: Follow-up with Dr. Pascual to be evaluated for arrhythmias. You have frequent PVCs but no obvious arrhythmias otherwise today. Talk with your doctor about being set up for a ZIO patch Holter monitor. Your labs are otherwise reassuring, your COVID swab is negative. You may continue your home medications as prescribed. Please return for fevers, new chest pain, worsening shortness of breath, increasing swelling in her extremities, lightheadedness or passing out or other new or concerning symptoms. Prescriptions: No Action Shingrix (PF) 50 mcg/0.5 mL suspension for reconstitution 0.5 ml IM ONCE Qty: 1 0RF Rx Instructions: as a single dose oxycodone-acetaminophen 5-325 mg tablet 1 tab PO Q4-6H PRN (Reason: pain) Qty: 30 0RF Hold Instructions: Home Medication placed on hold at Doctor's office acetaminophen [Tylenol] 325 mg tablet 650 mg PO Q6H PRN Referrals: Saji Pascual MD [Primary Care Provider] - Visit Report Forms: Patient Portal/API
[2021-09-13 17:50] LABS: NT-proBNP (BNP-Adult 18+) 321 pg/mL (<450)
[2021-09-13 17:52] LABS: COVID19 -Nasal RAPID Negative (Negative)
[2021-09-13 17:53] LABS: Troponin I < 0.012 ng/mL (0.01-0.034)
== END 2021-09-13 19:02 | disposition home or self-care (01) ==
PROVIDERS: Emergency Provider Emergency Medicine; PCP Family Medicine
DX: I49.3 Ventricular premature depolarization (principal); R07.9 Chest pain, unspecified; Z20.822 Contact with and (suspected) exposure to COVID-19
CPT/HCPCS: 36415; 71045; 80053; 82550; 83690; 83735; 83880; 84484; 85025; 87635; 93005; 93010; 99283; 99284; C9803

== ENCOUNTER → 2021-09-17 13:36 | Outpatient (CLI) | payer MEDICARE, SELFPAY ==
--- NOTE | 2021-10-02 07:21 | PM.CARDMON.1 ---
Territory Sales Consultant Report Referral & Results Date Patient Seen: 09/17/21 Requesting provider: Saji Pascual Indication: Palpitations Duration of monitoring (days): 7 Diary information: There were 3 patient triggered events and 8 patient diary entries All 11 of these patient events were variably associated with (within 45 seconds) sinus rhythm, PACs, PVCs and runs of ventricular bigeminy and ventricular trigeminy Data: Minimum heart rate identified was 45 beats per minute at 05:52 on 09/19/2021 Maximum sinus heart rate was 110 beats per minute at 06:26 on 09/24/2021 Maximum overall heart rate was 171 beats per minute at 05:21 on 09/22/2021 during a run of SVT Approximately 1.5% of identified beats were supraventricular ectopic in origin which would classify them as occasional Approximately 16.2% of identified beats were ventricular ectopic in origin which would classify them as frequent. 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
== END ==
PROVIDERS: PCP Family Medicine; Referring Provider Family Medicine; Visit Provider Family Medicine
DX: R00.2 Palpitations (principal)
CPT/HCPCS: 93242; 93244

== ENCOUNTER → 2021-10-12 14:05 | Outpatient (CLI) | payer MEDICARE, SELFPAY ==
[2021-10-12 15:04] LABS: COVID19 -Nasal RAPID Negative (Negative)
--- NOTE | 2021-10-12 20:36 | DI.NM.S_ITS ---
DATE OF SERVICE: 10/12/2021 PROCEDURE: Exercise stress test. INDICATION: Palpitation. CARDIAC STRESS: The patient underwent exercise stress test under the supervision of an attending staff. He walked on Rajiv protocol for 8 minutes and 01 seconds, achieved maximum heart rate of 153, which was 110 percent of target heart rate. Baseline blood pressure 120/78 mmHg. Peak blood pressure 182/100 mmHg. Achieved 10.1 METs of workload and POOJA -52 percent. Baseline rhythm was sinus, including atrial bigeminy, as well as ventricular bigeminy. During stress, patient continued to have frequent PVCs and some PACs and ventricular couplets without any ventricular tachycardia or atrial fibrillation. No chest discomfort. During frequent PVCs, patient felt palpitation. Also, had some shortness of breath. CONCLUSION: Exercise stress test is negative for convincing inducible ischemia. Mildly hypertensive blood pressure response. Peak blood pressure 182/100 mmHg. Excellent exercise tolerance. Functional aerobic impairment -52 percent. Baseline frequent premature atrial contractions, as well as premature ventricular contractions, including atrial bigeminy and ventricular bigeminy. Continued to have premature ventricular contractions and premature atrial contractions during exercise, but at peak exercise, they were not intense. Also, had some ventricular couplets without any ventricular tachycardia. No obvious atrial fibrillation. No chest discomfort. The patient was symptomatic during ventricular arrhythmias with palpitation. Also, had moderate shortness of breath. Correlate clinically. Considering his age, which is 80 years old, with underlying premature atrial contractions and premature ventricular contractions, consider repeating exercise stress test with myocardial imaging, like stress echo or stress perfusion study to improve sensitivity and specifically of coronary artery disease diagnosis and risk stratification. Evan Ojeda - Isidro/narinder doc#: [id number]/job#: [id number] dd: 10/12/2021 16:58:00 dt: 10/12/2021 20:27:00 DICTATING MD/COPIES TO: Rickie Byrd MD COPIES MNE: ERICA;
== END ==
PROVIDERS: PCP Family Medicine; Referring Provider Family Medicine; Visit Provider Family Medicine
DX: R00.2 Palpitations (principal); Z20.822 Contact with and (suspected) exposure to COVID-19; R06.09 Other forms of dyspnea
CPT/HCPCS: 87635; 93017

== ENCOUNTER → 2021-10-26 10:05 | Outpatient (CLI) | payer MEDICARE, SELFPAY ==
[2021-10-26 11:43] LABS: COVID19 -Nasal RAPID Negative (Negative)
--- NOTE | 2021-10-27 19:32 | DI.NM.S_ITS ---
DATE OF SERVICE: PROCEDURE: Exercise perfusion study. INDICATION: Exertional dyspnea, intermittent palpitation. RADIOPHARMACEUTICAL: 25.0 millicurie technetium-99m Myoview IV was injected at stress and 25.7 millicurie technetium-99m Myoview IV was injected at rest. CARDIAC STRESS: The patient underwent exercise perfusion study under the supervision of an attending staff. He walked on Rajiv protocol for 7 minutes and 59 seconds, achieved 108 percent of target heart rate. Baseline blood pressure 160/100 mmHg. Peak blood pressure 180/104 mmHg. No chest pain. Patient felt fatigue and had some shortness of breath. Baseline rhythm was sinus. During stress, there were no convincing inducible ischemic changes. The patient has baseline intermittent PVCs and some PACs. During stress, the patient has a brief run of atrial tachycardia without any obvious AFib and PVCs. In recovery, the patient had two episodes of three-beat runs of nonsustained ventricular tachycardia. No sustained ventricular tachycardia seen. RAW DATA: There is increased subdiaphragmatic activity. GATED STUDY: Resting LV ejection fraction 49 and stress LV ejection fraction reported to be 42 percent. Subtle inferior wall hypokinesis. Resting end- diastolic 154 mL. TID ratio 0.97, which is within normal limits. Lung/heart ratio 0.25, which is within normal limits. MYOCARDIAL PERFUSION SCAN: Stress supine, resting supine and stress prone images were compared to each other. There appears to be predominantly fixed moderate-size, mild to moderately decreased perfusion of inferior wall without any reversible ischemia. 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 Excellent exercise tolerance. The patient walked on Rajiv protocol for 7 minutes and 59 seconds, functional aerobic impairment -57 percent and achieved 10.1 metabolic equivalents of workload. Hypertensive blood pressure response. Peak blood pressure 180/104 mmHg. Aneta fatigue and shortness of breath without any chest pain. On surface electrocardiogram and during stress electrocardiogram, there were no obvious inducible ischemic changes. However, frequent premature ventricular contractions, which were seen at baseline and during stress. In recovery, the patient had two, nonsustained ventricular tachycardia episodes. Also, had short run of atrial tachycardia without any obvious atrial fibrillation and premature atrial contractions. Left ventricular function during stress 42 percent. Subtle inferior wall hypokinesis. Consider heart catheterization in view of abnormal perfusion study, decrease in left ventricular function and frequent ventricular, as well as atria,l arrhythmias, as stated above. Evan Ojeda - NOLAN/gayla/narinder doc#: [id number]/job#: [id number] dd: 10/27/2021 17:16:00 dt: 10/27/2021 18:18:00 DICTATING MD/COPIES TO: Rickie Byrd MD COPIES MNE: ERICA;
== END ==
PROVIDERS: PCP Family Medicine; Referring Provider Family Medicine; Visit Provider Family Medicine
DX: R06.09 Other forms of dyspnea (principal); R94.39 Abnormal result of other cardiovascular function study; Z20.822 Contact with and (suspected) exposure to COVID-19
CPT/HCPCS: 78452; 87635; 93017; A9502

== ENCOUNTER → 2021-12-11 06:29 | Outpatient (CLI) | payer MEDICARE, SELFPAY ==
[2021-12-11 10:40] LABS: Cholesterol 141 mg/dL (140-199); HDL Cholesterol 37 mg/dL (40-60); LDL Cholesterol Calculated 81 mg/dL (<100); Triglycerides 113 mg/dL (35-150)
== END ==
PROVIDERS: PCP Family Medicine; Referring Provider Internal Medicine Cardiovascular Disease; Visit Provider Internal Medicine Cardiovascular Disease
DX: E78.5 Hyperlipidemia, unspecified (principal)
CPT/HCPCS: 36415; 80061

== ENCOUNTER 2022-02-02 08:41 | Outpatient (CLI) | payer MEDICARE, SELFPAY ==
[2022-02-02] VITALS (8 sets, daily range): BP systolic 131–176; BP diastolic 60–78; PULSE 46–52; RESP 12–20; TEMP 36.3; O2SAT 97–100
--- NOTE | 2022-02-02 08:43 | DI.RAD.S_ITS ---
PROCEDURE: PAIN L/S TRANSFORAMINAL INJECT INDICATIONS: SPONDYLOSIS COMPARISON: [facility], , PAIN L/S TRANSFORAMINAL INJECT, 07/30/2021, 9:02. FINDINGS: Fluoroscopic spot filming was performed to verify placement of a spinal needle at the L3-L4 level, as labeled on the films. Appropriate location of the needle tip was confirmed by injection of iodinated contrast. IMPRESSION: Intraprocedural examination within normal limits. Dictated by: Chito Grace M.D. on 02/02/2022 at 11:14 Approved by: Chito Grace M.D. on 02/02/2022 at 11:14
[2022-02-02] MEDS: MIDAZOLAM 2 MG/2 ML VIAL IV (09:50)
[2022-02-02] MEDS: BUPIVACAINE 0.25% (PF) VIAL 2 ML INJ (09:57)
[2022-02-02] MEDS: DEXAMETHASONE 10 MG/ML VIAL 20 MG INJ (09:57)
[2022-02-02] MEDS: IOPAMIDOL 15 ML VIAL 3 ML INJ (09:57)
[2022-02-02] MEDS: BETAMETHASONE 30 MG/5 ML MDV 6 MG INJ (09:58)
--- NOTE | 2022-02-02 10:05 | P.PCN_ITS ---
Date/Time/Diagnoses Date of procedure: 02/02/22 Time of procedure: 10:05 Pre-procedure diagnosis: 1. FORAMINAL STENOSIS WITH LE SYMPTOMS Post-procedure diagnosis: same Procedure Notes Procedure: 1. FLUOROSCOPICALLY GUIDED CONTRAST CONTROLLED TRANSFORAMINAL EPIDURAL STEROID INJECTION - RIGHT L3/4 TFESI Indications: Evan is referred by Dr. Pascual for treatment of Foraminal Stenosis with right LE Symptoms Physician: Saji Lancaster Total Fluoroscopy time (seconds): 12 Total sedation minutes: 10 Complications: none Procedure in detail & Post-procedure care: FINDINGS Foraminal Nerve Root Compression secondary to disc disease and facet hypertrophy DESCRIPTION OF PROCEDURE Following review of allergy and review of potential side effects and complications, including, but not necessarily limited to, infection, allergic reaction, local tissue breakdown, stroke, temporary or permanent nerve injury, paralysis, and possible , the patient indicated that the patient understood and agreed to proceed. An informed consent document was signed by the patient, witnessed by a nurse, and placed in the patient's chart. Additionally, other treatment options including medications, modalities, and physical therapy were reviewed with the patient. After review of previous anaesthesic history and IV conscious sedation the patient was deemed safe to proceed with today?s procedure with IV conscious sedation as ASA class II designation. Safety time-out was performed to confirm patient ID, procedure to be performed and site of procedure. IV sedation was accomplished with a combination of 2mg of Versed was administered by the RN after DO order, titrated to patient comfort during the course of the procedure while the patient remained responsive to all verbal commands In the prone position following sterile prep and drape of the lumbar region, the right L3/4 posterior neuroforamen was identified fluoroscopically. The skin was anesthetized via a 25-gauge 1.5-inch needle with 1% lidocaine solution. At this point, a 25-gauge 3.5-inch spinal needle was atraumatically introduced and advanced under fluoroscopic guidance through the posterior right L3/4 neuroforamen to approximately the anterior aspect of the canal. Depth was confirmed on lateral view. Following negative aspiration, injection of approximately 1.5 cc of Isovue 200 under live fluoroscopy in the AP view con firmed excellent flow along the nerve root, into the epidural space without vascular or intrathecal uptake observed Radiological data, including multiple fluoroscopic views of the lumbosacral spine, reveal a spinal needle at the right L3/4 posterior neuroforamen. Subsequent views show flow of contrast material flowing superiorly and inferiorly along the nerve root confirming epidural flow. Subsequently, a test dose of 1.5 cc of 1% lidocaine solution was administered and patient was observed for two minutes for signs or symptoms of complications, including abdominal pain, shortness of breath, bilateral upper or lower extremity weakness, nausea and vomiting, prior to steroid injection. At this point, a total of 3cc or 20mg of dexamethasone and 6mg of betamethasone was injected without incident. The patient tolerated the procedure well without signs or symptoms of complications prior to transfer to the recovery area continued monitoring without incident. The patient was then transferred to the recovery area where they were observed for an appropriate time after the injection. The patient reported a VAS score of 7 prior to the procedure and a post-procedure VAS of 0. POST OP INSTRUCTIONS The patient was provided a Pain Log to continue to record their response to the target-specific procedure prior to follow-up visit with their referring ph ysician. Additionally, specific post-injection care instructions and a contact number to our office were provided if concerns arise regarding possible complications associated with the procedure are suspected.
--- NOTE | 2022-02-02 11:11 | PC.NURSE ---
1008- Patient arrived to post injection room right leg weak with transfer to chair. 1020- Patients right leg continues to have slight weakness able to put weight on it but still feels weak. 1040- Patient stood at chair able to march in place and take steps, reports that it feels a little weak but much better and steady on feet.
== END 2022-02-02 10:45 | disposition home or self-care (01) ==
PROVIDERS: PCP Family Medicine; Referring Provider Physical Medicine & Rehabilitation; Visit Provider Physical Medicine & Rehabilitation
DX: M48.061 Spinal stenosis, lumbar region without neurogenic claudication (principal); M51.16 Intervertebral disc disorders with radiculopathy, lumbar region
CPT/HCPCS: 64483; 99152; J0702; J1100; J2250; J3490

== ENCOUNTER → 2022-04-16 08:33 | Outpatient (CLI) | payer MEDICARE, SELFPAY ==
--- NOTE | 2022-04-16 08:35 | DI.RAD.S_ITS ---
PROCEDURE: XR CHEST 2V INDICATIONS: ACUTE COUGH TECHNIQUE: 2 views of the chest were acquired. COMPARISON: [facility], [facility], XR CHEST 1V, 09/13/2021, 14:26. [facility], [facility], CHEST 2 VIEW, 02/20/2017, 11:59. FINDINGS: Surgical changes and devices: Right humerus anchor. Lungs and pleura: Lungs appear clear. No pleural effusions or pneumothorax. Mediastinum: Mediastinal contours are unchanged. Heart size is within normal limits. Bones and chest wall: No suspicious bony abnormalities. Soft tissues appear unremarkable. IMPRESSION: No acute cardiopulmonary abnormality. Dictated by: Bandar Rock M.D. on 04/16/2022 at 9:12 Approved by: Bandar Rock M.D. on 04/16/2022 at 9:13
== END ==
PROVIDERS: PCP Family Medicine; Referring Provider Registered Nurse; Visit Provider Registered Nurse
DX: R05.1 Acute cough (principal)
CPT/HCPCS: 71046

== ENCOUNTER → 2022-05-19 09:14 | Outpatient (CLI) | payer MEDICARE, SELFPAY ==
--- NOTE | 2022-05-19 | DI.ECHO.S_ITS ---
[place] [facility]---------+ [facility] +---------+ : : [address] : : : : [id number] : : : : Phone: [phone] Echocardiogram Report + + :Name: BRYCE CARRASCO Study Date: 05/19/2022 Height: 73 in : :[facility] ReadingLocation: Weight: 165 lb : : Gender: Male BSA: 2.0 m2 : :: 1940 Age: 81 yrs BP: 108/59 mmHg: :Reason For Study: HEART DISEASE : :Ordering Physician: MARY, : :LYLY Performed By: Angie Bower : :Referring: LYLY HERNANDEZ : + + Interpretation Summary The patient was in sinus bradycardia with heart rates between 45-65 bpm during the exam. The patient had frequent PVCs during the exam. The left ventricle is mildly dilated. The ejection fraction is estimated to be 40-45%. Significant LV dyssynchrony during frequent PVCs. Overall appears to be mild global hypokinesis as well. Overall global LV ejection fraction in the range of 40 to 45%. The right ventricle is normal in size and function. There is borderline mitral valve prolapse. There is prolapse of the posterior mitral valve leaflet(s). Overall mild to moderate MR. However during PVCs mitral regurgitation becomes moderate. There is moderate aortic regurgitation. 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 Procedure: A two-dimensional transthoracic echocardiogram with color flow and Doppler was performed. The study quality was technically adequate. There is no prior echocardiogram noted for this patient. The patient was in sinus bradycardia with heart rates between 45-65 bpm during the exam. The patient had frequent PVCs during the exam. Left Ventricle: The left ventricle is mildly dilated. There is normal left ventricular wall thickness. There is no thrombus. The ejection fraction is estimated to be 40-45%. Significant LV dyssynchrony during frequent PVCs. Overall appears to be mild global hypokinesis as well. Overall global LV ejection fraction in the range of 40 to 45%. Diastolic parameters suggest a relaxation abnormality of the left ventricle, consistent with probable normal filling pressures. Right Ventricle: The right ventricle is normal in size and function. Atria: The left atrium is mildly dilated. Right atrial size is normal. There is no Doppler evidence for an interatrial shunt. The atrial septum is aneurysmal. Mitral Valve: There is a flat closure plane of the the mitral valve leaflets. There is borderline mitral valve prolapse. There is prolapse of the posterior mitral valve leaflet(s). There is moderate mitral regurgitation. There are multiple regurgitant jets present. Aortic Valve: The aortic valve is trileaflet. The aortic valve opens well. There is no aortic valve stenosis. There is moderate aortic regurgitation. Tricuspid Valve: The tricuspid valve is normal in structure and function. There is trace tricuspid regurgitation. The right ventricular systolic pressure is estimated to be at least 19.4 mmHg based on an estimated right atrial pressure of 3 mm Hg. Pulmonic Valve: The pulmonic valve leaflets are thin and pliable; valve motion is normal. There is mild pulmonic regurgitation. 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 The IVC is of normal diameter and collapses greater than 50% with a sniff. This suggests a low right atrial pressure of 3 mm Hg. Pericardium/ Pleura There is no pericardial effusion. There is no pleural effusion. MMode/2D Measurements & Calculations LVIDd: 6.0 cm LVOT diam: 2.6 cm LVIDs: 4.6 cm Ao root diam: 4.3 cm FS: 22.9 % asc Aorta Diam: 4.0 cm IVSd: 0.80 cm Ao Arch Diam (Prox Trans): 2.9 cm LVPWd: 0.81 cm LV guerra. diameter/BSA (cm/m^2): 3.0 LV sys. diameter/BSA (cm/m^2): 2.3 LA A2 area: 25.7 cm2 RA long axis: 4.9 cm LA A4 area: 23.5 cm2 RA area: 18.1 cm2 LA length (vol): 6.3 cm RA vol: 57.2 ml LA vol: 81.1 ml RA : 28.9 ml/m2 LA vol index: 40.9 ml/m2 IVC diam: 1.3 cm RVD1 (basal): 3.6 cm RVD2 (mid): 3.7 cm TAPSE: 1.8 cm Doppler Measurements & Calculations Ao V2 max: 105.6 cm/sec LVOT Max Haider: 63.2 cm/sec Ao V2 mean: 73.2 cm/sec LV V1 max P.6 mmHg Ao max P.5 mmHg LV V1 VTI: 16.2 cm Ao mean P.4 mmHg TANYA(I,D): 4.0 cm2 Ao V2 VTI: 21.2 cm TANYA(V,D): 3.1 cm2 sev ratio: 0.77 TANYA indexed to BSA (cm^2/m^2): 2.0 AI P1/2t: 710.1 msec AI dec slope: 196.7 cm/sec2 MV E max haider: 32.4 cm/sec TR max haider: 202.1 cm/sec MV A max haider: 51.8 cm/sec TR max P.4 mmHg MV E/A: 0.62 PA V2 max: 72.3 cm/sec Med Peak E' Haider: 4.2 cm/sec PA V2 mean: 50.0 cm/sec E/E' med: 7.7 PA mean P.1 mmHg Lat Peak E' Haider: 5.2 cm/sec PA pr(Accel): 20.8 mmHg E/E' lat: 6.2 E/e' average: 7.0 MV dec time: 0.35 sec SV(LVOT): 85.0 ml Reading Physician:04:55 PM
== END ==
PROVIDERS: PCP Family Medicine; Referring Provider Internal Medicine Cardiovascular Disease; Visit Provider Internal Medicine Cardiovascular Disease
DX: I77.89 Other specified disorders of arteries and arterioles (principal); I08.0 Rheumatic disorders of both mitral and aortic valves; I77.810 Thoracic aortic ectasia
CPT/HCPCS: 93306

== ENCOUNTER 2022-08-03 07:23 | Outpatient (CLI) | payer MEDICARE, SELFPAY ==
[2022-08-03] VITALS (10 sets, daily range): BP systolic 117–170; BP diastolic 55–74; PULSE 40–56; RESP 14–22; TEMP 36.4; O2SAT 96–100
--- NOTE | 2022-08-03 07:25 | DI.RAD.S_ITS ---
PROCEDURE: PAIN L/S TRANSFORAMINAL INJECT INDICATIONS: SPONDYLOSIS COMPARISON: [facility], , PAIN L/S TRANSFORAMINAL INJECT, 02/02/2022, 10:52. FINDINGS: Fluoroscopic spot filming was performed to verify placement of spinal needles at the L3-4 level(s), as labeled on the films. Appropriate location(s) of the needle tip(s) was confirmed by injection of iodinated contrast. IMPRESSION: Intraprocedural fluoroscopy was provided for guidance and anatomical localization. Please see the procedure report for further details. Dictated by: Angel Rutledge M.D. on 08/03/2022 at 12:53 Approved by: Angel Rutledge M.D. on 08/03/2022 at 12:55
[2022-08-03] MEDS: MIDAZOLAM 2 MG/2 ML VIAL IV (08:18)
[2022-08-03] MEDS: IOPAMIDOL 15 ML VIAL 3 ML INJ (08:27)
[2022-08-03] MEDS: BUPIVACAINE 0.25% (PF) VIAL 2 ML INJ (08:28)
[2022-08-03] MEDS: DEXAMETHASONE 10 MG/ML VIAL 20 MG INJ (08:28)
[2022-08-03] MEDS: BETAMETHASONE 30 MG/5 ML MDV 6 MG INJ (08:29)
--- NOTE | 2022-08-03 08:41 | P.PCN_ITS ---
Date/Time/Diagnoses Date of procedure: 08/03/22 Time of procedure: 08:42 Pre-procedure diagnosis: 1. FORAMINAL STENOSIS WITH LE SYMPTOMS Post-procedure diagnosis: same Procedure Notes Procedure: 1. FLUOROSCOPICALLY GUIDED CONTRAST CONTROLLED TRANSFORAMINAL EPIDURAL STEROID INJECTION - RIGHT L3/4 TFESI Indications: Harpreet referred by Dr. Pascual for treatment of Foraminal Stenosis with right LE Symptoms Physician: Sjai Lancaster Total Fluoroscopy time (seconds): 9 Total sedation minutes: 14 Complications: none Procedure in detail & Post-procedure care: FINDINGS Foraminal Nerve Root Compression secondary to disc disease and facet hypertrophy DESCRIPTION OF PROCEDURE Following review of allergy and review of potential side effects and complications, including, but not necessarily limited to, infection, allergic reaction, local tissue breakdown, stroke, temporary or permanent nerve injury, paralysis, and possible , the patient indicated that the patient understood and agreed to proceed. An informed consent document was signed by the patient, witnessed by a nurse, and placed in the patient's chart. Additionally, other treatment options including medications, modalities, and physical therapy were reviewed with the patient. After review of previous anaesthesic history and IV conscious sedation the patient was deemed safe to proceed with today?s procedure with IV conscious sedation as ASA class II designation. Safety time-out was performed to confirm patient ID, procedure to be performed and site of procedure. IV sedation was accomplished with a combination of 2mg of Versed was administered by the RN after DO order, titrated to patient comfort during the course of the procedure while the patient remained responsive to all verbal commands In the prone position following sterile prep and drape of the lumbar region, the right L3/4 posterior neuroforamen was identified fluoroscopically. The skin was anesthetized via a 25-gauge 1.5-inch needle with 1% lidocaine solution. At this point, a 25-gauge 3.5-inch spinal needle was atraumatically introduced and advanced under fluoroscopic guidance through the posterior right L3/4 neuroforamen to approximately the anterior aspect of the canal. Depth was confirmed on lateral view. Following negative aspiration, injection of approximately 1.5 cc of Isovue 200 under live fluoroscopy in the AP view confi rmed excellent flow along the nerve root, into the epidural space without vascular or intrathecal uptake observed Radiological data, including multiple fluoroscopic views of the lumbosacral spine, reveal a spinal needle at the right L3/4 posterior neuroforamen. Subsequent views show flow of contrast material flowing superiorly and inferiorly along the nerve root confirming epidural flow. Subsequently, a test dose of 1.5 cc of 1% lidocaine solution was administered and patient was observed for two minutes for signs or symptoms of complications, including abdominal pain, shortness of breath, bilateral upper or lower extremity weakness, nausea and vomiting, prior to steroid injection. At this point, a total of 3cc or 20mg of dexamethasone and 6mg of betamethasone was injected without incident. The patient tolerated the procedure well without signs or symptoms of complications prior to transfer to the recovery area continued monitoring without incident. The patient was then transferred to the recovery area where they were observed for an appropriate time after the injection. The patient reported a VAS score of 7 prior to the procedure and a post-procedure VAS of 0. POST OP INSTRUCTIONS The patient was provided a Pain Log to continue to record their response to the target-specific procedure prior to follow-up visit with their referring phys ician. Additionally, specific post-injection care instructions and a contact number to our office were provided if concerns arise regarding possible complications associated with the procedure are suspected.
== END 2022-08-03 08:57 | disposition home or self-care (01) ==
LOC: RAD 07:24
PROVIDERS: PCP Family Medicine; Referring Provider Physical Medicine & Rehabilitation; Visit Provider Physical Medicine & Rehabilitation
DX: M51.16 Intervertebral disc disorders with radiculopathy, lumbar region (principal)
CPT/HCPCS: 64483; 99152; J0702; J1100; J2250; J3490

== ENCOUNTER 2022-08-20 16:52 | Inpatient (IN) | payer MEDICARE, SELFPAY ==
[2022-08-20] VITALS (8 sets, daily range): BP systolic 116–147; BP diastolic 68–83; PULSE 53–56; RESP 17; TEMP 36.8; O2SAT 95–99; BMI 22.4
[2022-08-20 18:03] LABS: Add Manual Diff / Slide Review NO; Basophils Absolute Auto 0 /uL (0-100); Basophils Percent Auto 0.4 % (0-2); Eosinophils Absolute Auto 100 /uL (0-450); Eosinophils Percent Auto 1.5 % (2-4); Hematocrit 49.1 % (41-53); Hemoglobin 16.5 g/dL (13.5-17.5); Lymphocytes Absolute Auto 1900 /uL (1100-4500); Lymphocytes Percent Auto 19.3 % (25-40); Mean Corpuscular HGB Conc 33.7 % (30-36); Mean Corpuscular Hemoglobin 30.8 PG (26-34); Mean Corpuscular Volume 91.5 fL (80-100); Monocytes Absolute Auto 1000 /uL (0-900); Monocytes Percent Auto 10.5 % (3-14); Neutrophils Absolute Auto 6700 /uL (1500-7000); Neutrophils Percent Auto 68.3 % (50-75); Platelet Count 188 X10^3/uL (150-400); Red Blood Cell Count 5.36 X10^6/uL (4.5-5.9); Red Cell Distribution Width 13.6 % (11.6-14.8); White Blood Cell Count 9.9 X10^3/uL (4.5-11.0)
[2022-08-20 18:04] LABS: Alanine Aminotransferase 25 IU/L (<50); Albumin 4.7 g/dL (3.5-5.0); Albumin Globulin Ratio 1.2 (1.0-2.8); Alkaline Phosphatase 81 U/L (38-126); Aspartate Aminotransferase 37 IU/L (17-59); BUN Creatinine Ratio 18.4 (6-22); Bilirubin Total 0.9 mg/dL (0.2-1.3); Blood Urea Nitrogen 19 mg/dL (9-20); Calcium 9.8 mg/dL (8.4-10.2); Carbon Dioxide 29 mmol/L (22-32); Chloride 101 mmol/L (98-107); Estimated Glomerular Filt Rate > 60 mL/min (>60); Globulin 3.8 g/dL (1.7-4.1); Glucose 102 mg/dL (80-110); Lipase 82 U/L (23-300); Potassium 4.5 mmol/L (3.4-5.1); Sodium 139 mmol/L (137-145); Total Protein 8.5 g/dL (6.3-8.2)
[2022-08-20 18:11] LABS: HEMOLYSIS 66 (0-50)
[2022-08-20] MEDS: ONDANSETRON 4 MG/2 ML INJ IV (18:26)
--- NOTE | 2022-08-20 20:23 | ED.ABDPAIN ---
HPI - Abdominal Pain General Chief Complaint: Abdominal Pain Stated Complaint: RLQ pain Time Seen by Provider: 08/20/22 18:17 Source: patient Mode of arrival: Ambulatory History of Present Illness HPI narrative: 81-year-old male nonsmoker with history of cardiac disease, hypertension, hyperlipidemia, prior bowel surgeries from perforated diverticulum in 2015 with bowel resection, diverting ostomy and subsequent anastomosis at [facility] presents with family in the chief complaint of gradually worsening right lower quadrant pain mainly over the course of the day. He does state that he has been feeling a bit under the weather for the past few days and had been taking Tums which provided little to no relief. Over the day he is developed more significant right lower quadrant pain and has had multiple episodes of vomiting. He is had frequent watery stools and is unsure when his last completely formed stool was. His pain is persistent but certainly made worse by motion and improves with rest. He denies much in the way of any radiation of pain. He states it is largely centered over the point of his prior anastomosis scar. He has had pain here in the past and has been told by his surgeons that it is likely related to scar tissue but this is different, more intense and longer in duration. Related Data Home Medications Medication Instructions Recorded Confirmed acetaminophen 325 mg tablet 650 mg PO Q6H PRN 02/11/20 07/08/22 (Tylenol) metoprolol succinate 50 mg 50 mg PO DAILY 01/21/22 07/08/22 tablet,extended release 24 hr rosuvastatin 10 mg tablet 10 mg PO DAILY 01/21/22 07/08/22 sacubitril 24 mg-valsartan 26 mg 1 tab PO ONCE 07/08/22 07/08/22 tablet (Entresto) spironolactone 25 mg tablet 25 mg PO DAILY 07/08/22 07/08/22 Previous Rx's Medication Instructions Recorded oxycodone-acetaminophen 5 mg-325 1 tab PO Q4-6H PRN pain #30 tabs 01/16/20 mg tablet varicella-zoster glycoE [id number] 0.5 ml IM ONCE #1 ea 01/16/20 adj(PF) 50 mcg/0.5 mL IM susp, kit (Shingrix (PF)) Allergies Allergy/AdvReac Type Severity Reaction Status Date / Time codeine [CODEINE] AdvReac Mild UPSET Verified 08/20/22 17:51 STOMACH Review of Systems Review of Systems Narrative: GENERAL: See HPI HEENT: Denies sinus pain, ear pain, sore throat, difficulty swallowing, dizziness. RESPIRATORY: Denies dyspnea, cough, wheezing, hemoptysis, sputum. CARDIOVASCULAR: Denies chest pain, palpitations, orthopnea, edema, GASTROINTESTINAL: See HPI : Denies dysuria, frequency, incontinence, hematuria, urinary retention. MUSCULOSKELETAL: denies weakness, joint pain, or bony pain SKIN: Denies rash, skin lesions, or other NEUROLOGIC: Denies weakness, headache, numbness, change in speech, confusion, seizures, incoordination. PSYCHIATRIC: No concerning psychosocial issues. 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 Well-developed patient, in mild distress. HEAD: Atraumatic. Normocephalic. EYES: Pupils equal round and reactive. Extraocular motions intact. No scleral icterus. No injection or drainage. ENT: Nose without bleeding, purulent drainage. Throat without erythema, tonsillar hypertrophy or exudate. Airway patent. NECK: Trachea midline. Non tender CARDIOVASCULAR: Regular rate and rhythm without murmurs, gallops, or rubs. RESPIRATORY: Clear to auscultation. Breath sounds equal bilaterally. No wheezes, rales, or rhonchi. GASTROINTESTINAL: Abdomen soft, mildly distended with decreased but present bowel sounds. Most tender in RLQ EXTREMITIES: No edema or joint tenderness. BACK: Nontender without deformity or crepitance. No flank tenderness. NEURO: AOx3. SKIN: No rash or erythema of visible areas Initial Vital Signs Initial Vital Signs: Vital Signs Temperature 98.2 F 08/20/22 17:43 Pulse Rate 56 L 08/20/22 17:43 Respiratory Rate 17 08/20/22 17:43 Blood Pressure 134/81 08/20/22 17:43 Pulse Oximetry 98 08/20/22 17:43 Oxygen Delivery Method Room Air 08/20/22 17:43 Course Orders Ordered: ED Orders 08/20/22 17:39 Complete Blood Count AUTO DIFF Stat Comprehensive Metabolic Panel Stat Lipase Stat 08/20/22 17:42 EKG-12 Lead Stat 08/20/22 20:24 CT abdomen pelvis w con Stat 08/20/22 21:17 Urine Culture Stat Urine Microscopic Stat Sodium Chloride (Normal Saline 0.9%) 1,000 mls @ 1,000 mls/hr IV BOLUS ONE Stop: 08/21/22 00:26 Last Admin: 08/20/22 23:38 Dose: 1,000 mls/hr Documented By: SAMM Ondansetron HCl (Ondansetron 4 Mg Odt) 4 mg PO NOW PRN PRN Reason: Nausea And Vomiting Ondansetron HCl (Ondansetron 4 Mg/2 Ml Inj) 4 mg IV NOW PRN PRN Reason: Nausea And Vomiting Last Admin: 08/20/22 18:26 Dose: 4 mg Documented By: AMU Discontinued Medications Hydromorphone HCl (Hydromorphone 0.5 Mg Inj) 0.25 mg IV NOW ONE Stop: 08/20/22 23:28 Last Admin: 08/20/22 23:37 Dose: 0.25 mg Documented By: SAMM Pantoprazole Sodium (Pantoprazole 40 Mg Vial) 40 mg IV NOW ONE Stop: 08/20/22 20:26 Last Admin: 08/20/22 20:56 Dose: 40 mg Documented By: Consultations Consultation #1: discussed with on-call surgery, Dr. Morales, she is happy with plan, recommends admission to hospitalist and will be involved as consumer services consultant Consultation #2: discussed with Dr. Roper, happy to accept on her service Vital Signs Vital signs: Vital Signs - 8 hr 08/20/22 17:43 08/20/22 19:25 08/20/22 19:26 Temperature 98.2 F Pulse Rate 56 L 53 L 54 L Respiratory Rate 17 Blood Pressure 134/81 Pulse Oximetry 98 99 Oxygen Delivery Method Room Air 08/20/22 19:26 08/20/22 19:30 08/20/22 19:32 Temperature Pulse Rate 56 L Respiratory Rate Blood Pressure 147/83 H 134/68 Pulse Oximetry 98 Oxygen Delivery Method 08/20/22 19:32 08/20/22 20:00 08/20/22 20:00 Temperature Pulse Rate 54 L 54 L Respiratory Rate Blood Pressure 147/74 H Pulse Oximetry 99 95 Oxygen Delivery Method 08/20/22 20:30 08/20/22 20:30 08/20/22 21:00 Temperature Pulse Rate 55 L 55 L Respiratory Rate Blood Pressure 116/71 Pulse Oximetry 96 97 Oxygen Delivery Method MDM - Abdominal Pain Lab Data 08/20/22 17:39 08/20/22 17:39 Labs: Lab Results 08/20/22 08/20/22 08/20/22 Range/Units 17:39 17:39 21:17 WBC 9.9 (4.5-11.0) X10^3/uL RBC 5.36 (4.5-5.9) X10^6/uL Hgb 16.5 (13.5-17.5) g/dL Hct 49.1 (41-53) % MCV 91.5 (80-100) fL MCH 30.8 (26-34) PG MCHC 33.7 (30-36) % RDW 13.6 (11.6-14.8) % Plt Count 188 (150-400) X10^3/uL Neut % (Auto) 68.3 (50-75) % Lymph % (Auto) 19.3 L (25-40) % Schleicher % (Auto) 10.5 (3-14) % Eos % (Auto) 1.5 L (2-4) % Baso % (Auto) 0.4 (0-2) % Neut # (Auto) 6700 (2761-2344) /uL Lymph # (Auto) 1900 (5536-3706) /uL Schleicher # (Auto) 1000 H (0-900) /uL Eos # (Auto) 100 (0-450) /uL Baso # (Auto) 0 (0-100) /uL Sodium 139 (137-145) mmol/L Potassium 4.5 (3.4-5.1) mmol/L Chloride 101 (98-107) mmol/L Carbon Dioxide 29 (22-32) mmol/L BUN 19 (9-20) mg/dL Creatinine 1.03 (0.66-1.25) mg/dL Estimated GFR > 60 (>60) mL/min BUN/Creatinine Ratio 18.4 (6-22) Glucose 102 (80-110) mg/dL Calcium 9.8 (8.4-10.2) mg/dL Total Bilirubin 0.9 (0.2-1.3) mg/dL AST 37 (17-59) IU/L ALT 25 (<50) IU/L Alkaline Phosphatase 81 (38-126) U/L Total Protein 8.5 H (6.3-8.2) g/dL Albumin 4.7 (3.5-5.0) g/dL Globulin 3.8 (1.7-4.1) g/dL Albumin/Globulin Ratio 1.2 (1.0-2.8) Lipase 82 (23-300) U/L Urine RBC 0-1/hpf (0-5/HPF) Urine WBC 1-5/hpf (0-5/HPF) Ur Squamous Epith Cells 0-1 /hpf (0-5/HPF) Urine Bacteria None seen (None) Ur Culture Indicated? Specimen cultured Point of care testing: Urine Dip Bedside Urine Glucose Negative Bedside Urine Bilirubin - Negative Bedside Urine Ketone - Negative Urine Specific [place] 1.015 Bedside Urine Occult Blood +/- Bedside Urine pH 6.0 Bedside Urine Protein - Negative Bedside Urine Urobilinogen - Negative Bedside Urine Nitrite - Negative Bedside Urine Leukocytes ++ 125 Esterase MDM Narrative Medical decision making narrative: [81] year old patient presents with right lower quadrant pain Multiple etiologies for patient's symptoms considered including, but not limited to: [Appendicitis versus obstruction versus other] Prior Charts reviewed in our EMR Primary Historian: patient Labs reviewed and interpreted by myself: No leukocytosis or left shift, no signs of anemia, electrolytes within normal Imaging reviewed: Small-bowel obstruction with transition point in the right lower quadrant, also mild fluid distention of the ascending and transverse colon with nondistention of the distal colon Consultations: Discussed with General surgery and hospitalist, see details above Discharge Plan Departure Patient Disposition: Admitted As Inpatient Clinical Impression: Partial small bowel obstruction Admit Date/Time: 08/20/22 23:36 Admit Provider: Priyanka Roper
--- NOTE | 2022-08-20 20:24 | DI.CT.S_ITS ---
P or ROCEDURE: CT ABDOMEN PELVIS W CON INDICATIONS: severe pain in location of prior ostomy TECHNIQUE: After the administration of IV contrast, axial sections were acquired from the lung bases to the pubic symphysis. Coronal and sagittal reformats were performed. For radiation dose reduction, the following was used: automated exposure control, adjustment of mA and/or kV according to patient size. COMPARISON: [facility], CT, CT ABDOMEN PELVIS W CON, 08/09/2017, 14:32. FINDINGS: Image quality: Excellent. Lung bases: There is minimal dependent atelectasis. Heart: Heart is normal in size. There is a small hiatal hernia with mild fluid distention of the distal esophagus. ABDOMEN: Liver: No mass lesion. Gallbladder: Within normal limits without calcified gallstones. Biliary ducts: No biliary ductal dilatation. Pancreas: Unremarkable. Spleen: Normal in size. Adrenal Glands: No adrenal nodules. Kidneys and Ureters: No hydronephrosis. Stomach and Bowel: There is mild fluid distention of the stomach and small bowel, with small bowel loops measuring up to 3.2 cm in diameter with scattered air-fluid levels. This extends to a transition point in the right lower quadrant adjacent to a small bowel anastomosis. The terminal ileum is nondistended. There is mild to moderate fluid distention of the ascending and transverse colon with nondistention of the descending and sigmoid colon. Colonic diverticulosis is present without acute diverticulitis. Peritoneum: There is minimal interloop intraperitoneal free fluid. No free air. Ventral Wall: No hernia. Abdominal Nodes: No retroperitoneal or mesenteric adenopathy by size criteria. Vessels: Aorta and inferior vena cava are normal in size. PELVIS: Pelvic Organs: Unremarkable. Bladder: Unremarkable. Pelvic Nodes: No enlarged lymph nodes. Miscellaneous: No inguinal hernias are seen. Bones: Visualized osseous structures demonstrate no suspicious focal lesions. IMPRESSION: 1. Mild fluid distention of the stomach and small bowel loops extending to a transition point in the right lower quadrant adjacent to patient's small-bowel anastomosis. The findings are consistent with a small-bowel obstruction. 2. Mild fluid distention of the ascending and transverse colon with nondistention of the distal colon associated with a gradual transition. The findings likely represent an ileus. Dictated by: Evan Up M.D. on 08/20/2022 at 22:00 Approved by: Evan Up M.D. on 08/20/2022 at 22:14
[2022-08-20] MEDS: PANTOPRAZOLE 40 MG VIAL IV (20:56)
[2022-08-20 21:54] LABS: Bacteria Urine None Seen; Culture Indicated Urine Specimen Cultured; RBC Urine 0-1/HPF (0-5/HPF); Squamous Epithelial Cell Urine 0-1 /HPF (0-5/HPF); WBC Urine 1-5/HPF (0-5/HPF)
[2022-08-20] MEDS: HYDROMORPHONE 0.5 MG INJ 0.25 MG IV (23:37)
[2022-08-20] MEDS: SODIUM CHLORIDE 0.9% 1,000 ML 1000 ML IV (23:38)
[2022-08-21 00:03] VITALS: BMI 22.4
[2022-08-21 00:10] VITALS: BP 126/60; PULSE 59; RESP 19; TEMP 36.4; O2SAT 94
[2022-08-21] MEDS: SODIUM CHLORIDE 0.9% 1,000 ML 100 ML IV ×3 (01:30→20:52)
[2022-08-21 06:00] VITALS: BP 131/61; PULSE 63; RESP 18; TEMP 36.1; O2SAT 95
[2022-08-21] MEDS: SPIRONOLACTONE 25 MG TABLET 12.5 MG PO (10:23)
[2022-08-21] MEDS: METOPROLOL ER 50 MG TABLET PO ×2 (10:23→22:36)
[2022-08-21 11:00] VITALS: BP 128/63; PULSE 66; RESP 19; TEMP 36.6; O2SAT 97
--- NOTE | 2022-08-21 11:26 | P.CONS_ITS ---
History of Present Illness Consult details Date Patient Seen: 08/21/22 Time Patient Seen: 11:26 Chief complaint: LRQ pain Reason for consult: partial bowel obstruction Requesting provider: Minna Morales Narrative: Admitted for nausea, vomiting, and CT finding of SBO. Meds Home Medications and Allergies Home Medications Medication Instructions Recorded Confirmed Type acetaminophen 325 mg tablet 650 mg PO Q6H PRN Pain (Scale 02/11/20 08/21/22 History (Tylenol) Score 1-3) metoprolol succinate 50 mg 50 mg PO BID 01/21/22 08/21/22 History tablet,extended release 24 hr rosuvastatin 10 mg tablet 10 mg PO BEDTIME 01/21/22 08/21/22 History sacubitril 24 mg-valsartan 26 mg 1 tab PO BID 07/08/22 08/21/22 History tablet (Entresto) spironolactone 25 mg tablet 12.5 mg PO DAILY 07/08/22 08/21/22 History oxycodone-acetaminophen 5 mg-325 1 tab PO Q4H PRN pain 08/21/22 08/21/22 History mg tablet Allergies Allergy/AdvReac Type Severity Reaction Status Date / Time codeine [CODEINE] AdvReac Mild UPSET Verified 08/20/22 17:51 STOMACH Review of Systems Review of Systems Narrative: diarrhea all day that stopped last night, abdominal pain that resolved after d iarrhea stopped. ROS: Yes All systems reviewed with the patient and are negative except as otherwise documented Exam Vital Signs (past 8 hours): - 08/21/22 06:00 08/21/22 09:00 Temperature 97.0 F L 98 F Pulse Rate 63 66 Respiratory Rate 18 19 Blood Pressure 131/61 128/63 Pulse Oximetry 95 97 Oxygen Flow Rate 0 Oxygen Delivery Method Room Air Oxygen Flow Rate 0 Const General: cooperative, healthy appearing and comfortable Nutritional Appearance: average body habitus [facility] Head: normocephalic and atraumatic Eyes General: appearance normal, both eyes and all related structures Sclera: sclerae normal Neck Neck: trachea midline Chest Chest: normal inspection of the chest Resp Effort & Inspection: normal respiratory effort and able to speak in complete sentences Cardio Rate: regular rate Rhythm: regular rhythm GI Inspection: normal to inspection Palpation: soft Other: non tender Skin General: atrophy Neuro General: patient alert, patient awake and patient oriented x3 Psych Mental Status: mental status grossly normal Affect: normal affect Judgment: judgment good Objective Labs 08/20/22 17:39 08/20/22 17:39 Labs: Laboratory Results - last 24 hr 08/20/22 08/20/22 08/20/22 17:39 17:39 21:17 WBC 9.9 RBC 5.36 Hgb 16.5 Hct 49.1 MCV 91.5 MCH 30.8 MCHC 33.7 RDW 13.6 Plt Count 188 Neut % (Auto) 68.3 Lymph % (Auto) 19.3 L [place] % (Auto) 10.5 Eos % (Auto) 1.5 L Baso % (Auto) 0.4 Neut # (Auto) 6700 Lymph # (Auto) 1900 [place] # (Auto) 1000 H Eos # (Auto) 100 Baso # (Auto) 0 Sodium 139 Potassium 4.5 Chloride 101 Carbon Dioxide 29 BUN 19 Creatinine 1.03 Estimated GFR > 60 BUN/Creatinine Ratio 18.4 Glucose 102 Calcium 9.8 Total Bilirubin 0.9 AST 37 ALT 25 Alkaline Phosphatase 81 Total Protein 8.5 H Albumin 4.7 Globulin 3.8 Albumin/Globulin Ratio 1.2 Lipase 82 Urine RBC 0-1/hpf Urine WBC 1-5/hpf Ur Squamous Epith Cells 0-1 /hpf Urine Bacteria None seen Ur Culture Indicated? Specimen cultured [facility] Medical History Cataracts, bilateral Chronic GERD Diverticular disease Diverticulitis of intestine (10/15/14) DJD of both shoulders Facet arthropathy, lumbar Impingement syndrome of left shoulder Lumbar radiculopathy Rotator cuff arthropathy Rotator cuff arthropathy of right shoulder 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 Shoulder impingement syndrome Urethral stricture Surgical History H/O ileostomy S/P TURP Family History Father Heart disease Social History household members: spouse Tobacco & Substance Use Smoking Status: Never smoker Assessment & Plan Assessment & Plan narrative: Diarrhea that produced a pseudo obstruction at his anastomotic sites of ileostomy take down and colectomy. Resolved when diarrhea resolved. Plan: restart diet, no restrictions. COVID-19 COVID-19 status: Negative
[2022-08-21 11:30] VITALS: BMI 22.4
--- NOTE | 2022-08-21 12:43 | PC.NURSE ---
pt tolerating his clear liquid for lunch.
--- NOTE | 2022-08-21 13:23 | P.HP_ITS ---
History of Present Illness History of Present Illness Date Patient Seen: 08/21/22 Time Patient Seen: 09:15 Chief complaint: LRQ pain Narrative: Pt is an 81yo man with HTN, hyperlipidemia, chronic back pain, s/p bowel resection with diverting ostomy and subsequent anastomosis from perforated diverticulum in 2014, who self-catheterizes for urine who presented with RLQ abdominal pain. The pt reports that yesterday afternoon around 12:30 pm he notices RLQ abdominal pain around where his stoma used to be. The pain was initially dull, but became sharper with time. The pain gradually increased in intensity. It was very localized, and did not radiate. He was feeling very nauseous, and had multiple episodes of emesis as well as loose stools. The pt does report having 4x more formed stools earlier in the morning. He typically has 1-2 formed stools/day, with the assistance of Metamucil and Miralax. Due to the severity of the pain, he decided to present to the ED for evaluation. Prior to this episode, the pt had overall been feeling well. He did recently start medication that he cannot recall for presumed heartburn due to some general stomach upset. He denies any blood in his stool or emesis. He denies any recent chest pain, SOB, LE edema. This morning, the pt reports feeling significantly improved already. He only required one dose of Dilaudid in the ED. He continues to have mild nausea, but not as severe as last night. [facility] Medical History Cataracts, bilateral Chronic GERD Diverticular disease Diverticulitis of intestine (10/15/14) DJD of both shoulders Facet arthropathy, lumbar Impingement syndrome of left shoulder Lumbar radiculopathy Rotator cuff arthropathy Rotator cuff arthropathy of right shoulder 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 Shoulder impingement syndrome Urethral stricture Surgical History H/O ileostomy S/P TURP Family History Father Heart disease Social History household members: spouse Smoking Status: Never smoker Meds Home Medications and Allergies Home Medications Medication Instructions Recorded Confirmed Type acetaminophen 325 mg tablet 650 mg PO Q6H PRN Pain (Scale 02/11/20 08/21/22 His tory (Tylenol) Score 1-3) metoprolol succinate 50 mg 50 mg PO BID 01/21/22 08/21/22 History tablet,extended release 24 hr rosuvastatin 10 mg tablet 10 mg PO BEDTIME 01/21/22 08/21/22 History sacubitril 24 mg-valsartan 26 mg 1 tab PO BID 07/08/22 08/21/22 History tablet (Entresto) spironolactone 25 mg tablet 12.5 mg PO DAILY 07/08/22 08/21/22 History oxycodone-acetaminophen 5 mg-325 1 tab PO Q4H PRN pain 08/21/22 08/21/22 History mg tablet Allergies Allergy/AdvReac Type Severity Reaction Status Date / Time codeine [CODEINE] AdvReac Mild UPSET Verified 08/20/22 17:51 STOMACH Exam Vital Signs (past 8 hours): - 08/21/22 06:00 08/21/22 09:00 Temperature 97.0 F L 98 F Pulse Rate 63 66 Respiratory Rate 18 19 Blood Pressure 131/61 128/63 Pulse Oximetry 95 97 Oxygen Flow Rate 0 Oxygen Delivery Method Room Air Oxygen Flow Rate 0 Narrative Exam Narrative: Gen: NAD, sitting comfortably in bed, appears well, pleasantly conversant CV: RRR, no murmurs Resp: clear to auscultation bilaterally Abd: soft, nondistended, mild RLQ and periumbilical abdominal pain without rebound/guarding/rigidity, hypoactive bowel sounds Ext: no edema Neuro: no gross deficits Objective Labs 08/20/22 17:39 08/20/22 17:39 Labs: Laboratory Results - last 24 hr 08/20/22 08/20/22 08/20/22 17:39 17:39 21:17 WBC 9.9 RBC 5.36 Hgb 16.5 Hct 49.1 MCV 91.5 MCH 30.8 MCHC 33.7 RDW 13.6 Plt Count 188 Neut % (Auto) 68.3 Lymph % (Auto) 19.3 L [place] % (Auto) 10.5 Eos % (Auto) 1.5 L Baso % (Auto) 0.4 Neut # (Auto) 6700 Lymph # (Auto) 1900 [place] # (Auto) 1000 H Eos # (Auto) 100 Baso # (Auto) 0 Sodium 139 Potassium 4.5 Chloride 101 Carbon Dioxide 29 BUN 19 Creatinine 1.03 Estimated GFR > 60 BUN/Creatinine Ratio 18.4 Glucose 102 Calcium 9.8 Total Bilirubin 0.9 AST 37 ALT 25 Alkaline Phosphatase 81 Total Protein 8.5 H Albumin 4.7 Globulin 3.8 Albumin/Globulin Ratio 1.2 Lipase 82 Urine RBC 0-1/hpf Urine WBC 1-5/hpf Ur Squamous Epith Cells 0-1 /hpf Urine Bacteria None seen Ur Culture Indicated? Specimen cultured Assessment & Plan Assessment & Plan narrative: Pt is an 81yo man with HTN, hyperlipidemia, chronic back pain, s/p bowel resection with diverting ostomy and subsequent anastomosis from perforated diverticulum in 2014, who self-catheterizes for urine who presented with RLQ abdominal pain. Shown to have a partial small bowel obstruction and ileus. 1) SBO: Symptoms already significantly improved this morning. - Surgery consulted in the ED, appreciate recommendations and care - NPO for now, likely advance diet later today 2) HTN, Hyperlipidemia: BP stable - Continue home medications DVT ppx: Lovenox FEN: NPO, advance later today Code: Full Dispo: Pending symptom improvement with advancing diet. Likely d/c tomorrow morning. Quality VTE Deep Vein Thrombosis/Pulmonary Embolism Present on Admission: No
[2022-08-21 20:21] VITALS: BP 112/58; PULSE 51; RESP 17; TEMP 36.4; O2SAT 99
[2022-08-21] MEDS: ATORVASTATIN 20 MG TABLET PO (20:27)
[2022-08-21 22:36] VITALS: BP 124/56; PULSE 53
[2022-08-21 23:55] VITALS: BP 121/62; PULSE 50
[2022-08-22] VITALS: BP 121/62; PULSE 50; RESP 22; TEMP 36.7; O2SAT 94
[2022-08-22] MEDS: OXYCODONE/ACETAMINOPHEN 5/325 TABLET 1 TAB PO (06:09)
[2022-08-22] MEDS: SODIUM CHLORIDE 0.9% 1,000 ML 100 ML IV (06:47)
[2022-08-22 08:20] VITALS: BP 125/68; PULSE 63; RESP 18; TEMP 36.6; O2SAT 97
[2022-08-22] MEDS: SPIRONOLACTONE 25 MG TABLET 12.5 MG PO (08:21)
[2022-08-22 09:13] VITALS: BP 125/56; PULSE 48
[2022-08-22 09:19] VITALS: BP 128/60; PULSE 46
[2022-08-22] MEDS: METOPROLOL ER 50 MG TABLET PO (09:19)
--- NOTE | 2022-08-22 09:44 | P.DS_ITS ---
History of Present Illness History of Present Illness Date Patient Seen: 08/22/22 Chief complaint: LRQ pain Narrative: Pt is an 81yo man with HTN, hyperlipidemia, chronic back pain, s/p bowel resection with diverting ostomy and subsequent anastomosis from perforated diverticulum in 2015, who self-catheterizes for urine who presented with RLQ abdominal pain. The pt reports that yesterday afternoon around 12:30 pm he notices RLQ abdominal pain around where his stoma used to be. The pain was initially dull, but became sharper with time. The pain gradually increased in intensity. It was very localized, and did not radiate. He was feeling very nauseous, and had multiple episodes of emesis as well as loose stools. The pt does report having 4x more formed stools earlier in the morning. He typically has 1-2 formed stools/day, with the assistance of Metamucil and Miralax. Due to the severity of the pain, he decided to present to the ED for evaluation. Prior to this episode, the pt had overall been feeling well. He did recently start medication that he cannot recall for presumed heartburn due to some general stomach upset. He denies any blood in his stool or emesis. He denies any recent chest pain, SOB, LE edema. This morning, the pt reports feeling significantly improved already. He only required one dose of Dilaudid in the ED. He continues to have mild nausea, but not as severe as last night. Discharge Providers Provider Date of admission: 08/20/22 23:36 Discharge Date: 08/22/22 Primary care physician: Saji Pascual MD Consults: Dr Morales, General Surgery Discharge provider: Priyanka Roper MD Summary Hospital Course Discharge Diagnosis: Small bowel obstruction Hyperlipidemia Hypertension Hospital Course: The pt was admitted with partial small bowel obstruction. He was NPO overnight, and then transitioned to clear fluids as his pain improved. His diet was gradually advanced with no return of symptoms. At the time of discharge, he was tolerating a normal diet without nausea, vomiting, or abdominal pain. He was passing flatus and having BMs. He never required an NG tube. Status at Discharge Cognitive/behavioral status at discharge: oriented Functional status at discharge: independent ambulation Overall status at discharge: patient is back to baseline Exam Vital Signs (past 8 hours): - 08/22/22 08:20 08/22/22 09:13 08/22/22 09:19 Temperature 97.8 F Pulse Rate 63 48 L 46 L Respiratory Rate 18 Blood Pressure 125/68 125/56 L 128/60 Pulse Oximetry 97 Oxygen Flow Rate 0 Oxygen Delivery Method Room Air Oxygen Flow Rate 0 Narrative Exam Narrative: Gen:? NAD, sitting comfortably in bed, appears well CV:? RRR, no murmurs Resp:? clear to auscultation bilaterally Abd:? soft, nondistended, nontender, normoactive bowel sounds Ext:? no edema Objective Labs 08/20/22 17:39 08/20/22 17:39 [facility] Medical History Cataracts, bilateral Chronic GERD Diverticular disease Diverticulitis of intestine (10/15/14) DJD of both shoulders Facet arthropathy, lumbar Impingement syndrome of left shoulder Lumbar radiculopathy Rotator cuff arthropathy Rotator cuff arthropathy of right shoulder 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 Shoulder impingement syndrome Urethral stricture Surgical History H/O ileostomy S/P TURP Family History Father Heart disease Social History household members: spouse Smoking Status: Never smoker Discharge Plan Discharge Plan Patient Disposition: Home Discharge orders & Medications Prescriptions: Continued oxycodone-acetaminophen 5-325 mg tablet 1 tab PO Q4H PRN (Reason: pain) spironolactone 25 mg tablet 12.5 mg PO DAILY Entresto 24-26 mg tablet 1 tab PO BID acetaminophen [Tylenol] 325 mg tablet 650 mg PO Q6H PRN (Reason: Pain (Scale Score 1-3)) metoprolol succinate 50 mg tablet extended release 24 hr 50 mg PO BID rosuvastatin 10 mg tablet 10 mg PO BEDTIME Follow up/Referrals: Saji Pascual MD [Primary Care Provider] - 2 Weeks Diet/Activity/Treatments Diet: Diet as Tolerated and Regular Visit Report/Discharge Packet Instructions: DI for Small Bowel Obstruction Stand Alone Forms: Patient Portal/API, Stroke Signs & Symptoms Discharge Data Primary Care Provider: Saji Pascual VTE Deep Vein Thrombosis/Pulmonary Embolism Present on Admission: No
[2022-08-22 10:42] VITALS: PULSE 50
--- NOTE | 2022-08-22 12:12 | CM.DANOTE ---
DCP: Case received, EMR reviewed and met with patient. Introduced self and role. Was able to obtain information regarding patient's baseline activity level prior to hospitalization. DCP assessment completed with information currently available. Patient is an 81 year old male who admitted on the evening of 08/20, to the care of the hospitalist team. PCP: Dr. Pascual. Payer: confirmed: Medicare/[employer]. Patient came to the hospital via private vehicle secondary to having right lower quadrant pain over the course of the day. Patient had surgery consult, was diagnosed with small bowel obstruction. Patient has history of prior colectomy with re-anastomosis, in 2014. Met with patient in his room. He is alert, and confirmed that he resides here in [place] with spouse. He is independent at his baseline, he walks about 3 miles a day. P: Dr. Roper came by and indicated that patient is to be discharged home today, is currently stable. Radha Segura RN/E Business Manager Discharge Planning/Care Management CM Discharge Assessment Start: 08/22/22 12:10 Freq: Status: Active Protocol: Document 08/22/22 12:10 (Rec: 08/22/22 12:11 [id number]) Discharge Planning Assessment Assigned Division Manager Radha Segura RN/E Business Manager Advance Directives? Yes Advance Directives on File Yes History Provided By Patient,Medical Record Prior Living Arrangements House Household Members spouse Type of transporation used prior to Drives own vehicle admit Independent with ADL's Yes Is patient alert and oriented? Yes Caregiver for Another No Barriers to Discharge No Discharge Plan Home Transportation Arrangement Spouse Referrals Initiated None needed Whiteboard Updated in Patient Room with Yes name and ext. # of Division Manager Comment KAREN Guerrero name placed on white board from yesterday Review Status In Process Next Review Type Continued Stay Review
== END 2022-08-22 13:50 | disposition home or self-care (01) | DRG 390 ==
LOC: ED 18:17 → AC 23:37
PROVIDERS: Emergency Medicine; Admitting Provider Family Medicine; Emergency Provider Emergency Medicine; PCP Family Medicine; Referring Provider Emergency Medicine; Visit Provider Family Medicine
DX: K56.600 Partial intestinal obstruction, unspecified as to cause (principal); I10 Essential (primary) hypertension; E78.5 Hyperlipidemia, unspecified; Z93.2 Ileostomy status; Z20.822 Contact with and (suspected) exposure to COVID-19
CPT/HCPCS: 36415; 74177; 80053; 81003; 81015; 83690; 85025; 87086; 96374; 96375; 99222; 99238; 99284; C9113; J1170; J2405; Q9967

== ENCOUNTER → 2022-11-09 08:14 | Outpatient (CLI) | payer MEDICARE, SELFPAY ==
--- NOTE | 2022-11-09 08:16 | DI.RAD.S_ITS ---
PROCEDURE: XR LUMBAR SPINE MIN 4V INDICATIONS: Follow-up stenosis scoliosis TECHNIQUE: 5 views of the lumbar spine were acquired, including bilateral oblique views. COMPARISON: [facility], MR, MR LUMBAR SPINE WO CON, 12/25/2020, 8:27. [facility], CR, XR LUMBAR SPINE MIN 4V, 10/26/2019, 7:49. FINDINGS: Bones: 5 nonrib-bearing vertebrae are present. There is moderate levoscoliosis with the apex at L3. normal bony alignment. No vertebral body compression fractures. No suspicious bony lesions. Degenerative disc disease, severe at L3-L4, moderate at L1-L2, L2-L3, L4-L5 and L5-S1. Moderate facet arthropathy throughout the lumbar spine. Soft tissues: Overlying bowel gas pattern is normal. Severe atherosclerotic calcifications. Oblique images: No pars defects. IMPRESSION: 1. Moderate scoliosis with the apex at L3. 2. Multilevel degenerative disc and facet disease. 3. Severe atherosclerosis. Dictated by: Antonio Arndt M.D. on 11/09/2022 at 12:05 Approved by: Antonio Arndt M.D. on 11/09/2022 at 12:08
--- NOTE | 2022-11-09 08:16 | DI.RAD.S_ITS ---
PROCEDURE: XR KNEE LT 3V INDICATIONS: knee djd TECHNIQUE: 3 views of the knee were acquired. COMPARISON: None. FINDINGS: Bones: No fractures or dislocations. No suspicious bony lesions. Mild medial compartment joint space narrowing Soft tissues: No joint effusion. No suspicious soft tissue calcifications. Stippled calcification in the joint space IMPRESSION: Mild chondrocalcinosis and joint space narrowing Approved by: Tigre Calvillo M.D. on 11/09/2022 at 16:50
--- NOTE | 2022-11-09 08:16 | DI.RAD.S_ITS ---
PROCEDURE: XR KNEE RT 3V INDICATIONS: Knee DJD TECHNIQUE: 3 views of the knee were acquired. COMPARISON: None. FINDINGS: Bones: No fractures or dislocations. No suspicious bony lesions. Mild medial compartment joint space narrowing and small marginal osteophyte with stippled calcifications Soft tissues: No joint effusion. No suspicious soft tissue calcifications. IMPRESSION: [id number] osteoarthritis and chondrocalcinosis Approved by: Tigre Calvillo M.D. on 11/09/2022 at 16:53
--- NOTE | 2022-11-09 08:16 | DI.RAD.S_ITS ---
PROCEDURE: XR THORACIC SPINE 3V INDICATIONS: Follow-up stenosis scoliosis TECHNIQUE: 3 views of the thoracic spine were acquired. COMPARISON: [facility], CR, XR LUMBAR SPINE MIN 4V, 11/09/2022, 8:25. FINDINGS: Bones: No fractures or dislocations. No suspicious bony lesions. Minimal dextrocurvature. 12 pairs of ribs are noted, and appear intact where visualized. [id number] degenerative disc disease. Soft tissues: No paravertebral stripe thickening. IMPRESSION: 1. Mild degenerative disc disease in thoracic spine. Dictated by: Antonio Arndt M.D. on 11/09/2022 at 12:29 Approved by: Antonio Arndt M.D. on 11/09/2022 at 12:30
== END ==
PROVIDERS: PCP Family Medicine; Referring Provider Physical Medicine & Rehabilitation; Visit Provider Physical Medicine & Rehabilitation
DX: M51.16 Intervertebral disc disorders with radiculopathy, lumbar region (principal); M51.17 Intervertebral disc disorders with radiculopathy, lumbosacral region; M47.26 Other spondylosis with radiculopathy, lumbar region; M51.34 Other intervertebral disc degeneration, thoracic region; M41.9 Scoliosis, unspecified; M17.11 Unilateral primary osteoarthritis, right knee; M11.262 Other chondrocalcinosis, left knee; M11.261 Other chondrocalcinosis, right knee
CPT/HCPCS: 72072; 72110; 73562

== ENCOUNTER → 2023-01-10 13:32 | Outpatient (CLI) | payer MEDICARE, SELFPAY ==
--- NOTE | 2023-01-10 | DI.ECHO.S_ITS ---
[facility]---------[facility] +---------+ : : [address] : : : : [id number] : : : : Phone: [phone]+ Echocardiogram Report + + :Name: BRYCE CARRASCO Study Date: 01/10/2023 Height: 73 in : :[facility] ReadingLocation: Weight: 165 lb : : Gender: Male BSA: 2.0 m2 : :: 1940 Age: 82 yrs BP: 118/58 mmHg: :Reason For Study: CHRONIC SYSTOLIC HEART FAILURE : :Ordering Physician: : :LYLY HERNANDEZ Performed By: Angie Bower : :Referring: LYLY HERNANDEZ : + + Interpretation Summary The patient was in sinus bradycardia with heart rates between 46-56 bpm during the exam. The ejection fraction is estimated to be 40-45%. Grade I diastolic dysfunction. The left atrium is moderately dilated. The right ventricle is normal in size and function. There is prolapse of the posterior mitral valve leaflet(s). There is moderate mitral regurgitation. There is moderate aortic regurgitation. There is mild tricuspid regurgitation. The right ventricular systolic pressure is estimated to be at least 22 mmHg based on an estimated right atrial pressure of 3 mm Hg. 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 Compared to the prior study dated 05/19/2022, no significant change. Procedure: A two-dimensional transthoracic echocardiogram with color flow and Doppler was performed. The study quality was technically adequate. Comparison is made with the echocardiogram of 05/19/2022. The patient had occasional PVCs during the exam. The patient was in sinus bradycardia with heart rates between 46-56 bpm during the exam. Left Ventricle: The left ventricle is normal in size and wall thickness. The ejection fraction is estimated to be 40-45%. Diastolic parameters suggest a relaxation abnormality of the left ventricle, consistent with probable normal filling pressures. Right Ventricle: The right ventricle is normal in size and function. Atria: The left atrium is moderately dilated. Right atrial size is normal. There is no Doppler evidence for an interatrial shunt. Mitral Valve: There is prolapse of the posterior mitral valve leaflet(s). There is moderate mitral regurgitation. Aortic Valve: The aortic valve is trileaflet. The aortic valve opens well. There is no aortic valve stenosis. There is moderate aortic regurgitation. Tricuspid Valve: The tricuspid valve is normal in structure and function. There is mild tricuspid regurgitation. The right ventricular systolic pressure is estimated to be at least 22 mmHg based on an estimated right atrial pressure of 3 mm Hg. Pulmonic Valve: The pulmonic valve is not well visualized. There is no pulmonic valvular regurgitation. 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 The IVC is of normal diameter and collapses greater than 50% with a sniff. This suggests a low right atrial pressure of 3 mm Hg. Pericardium/ Pleura There is no pericardial effusion. There is no pleural effusion. MMode/2D Measurements & Calculations LVIDd: 5.1 cm LVOT diam: 2.6 cm LVIDs: 4.1 cm Ao root diam: 4.2 cm FS: 19.0 % asc Aorta Diam: 3.9 cm IVSd: 1.0 cm Ao Arch Diam (Prox Trans): 3.1 cm LVPWd: 0.83 cm LV guerra. diameter/BSA (cm/m^2): 2.6 LV sys. diameter/BSA (cm/m^2): 2.1 LA A2 area: 27.2 cm2 RA long axis: 5.5 cm LA A4 area: 21.6 cm2 RA area: 20.1 cm2 LA length (vol): 5.7 cm RA vol: 62.6 ml LA vol: 88.0 ml RA : 31.6 ml/m2 LA vol index: 44.4 ml/m2 IVC diam: 1.8 cm RVD1 (basal): 3.9 cm RVD2 (mid): 3.7 cm TAPSE: 1.9 cm Doppler Measurements & Calculations Ao V2 max: 112.1 cm/sec LVOT Max Haider: 74.3 cm/sec Ao V2 mean: 73.8 cm/sec LV V1 max P.2 mmHg Ao max P.0 mmHg LV V1 VTI: 15.1 cm Ao mean P.4 mmHg TANYA(I,D): 3.4 cm2 Ao V2 VTI: 24.5 cm TANYA(V,D): 3.6 cm2 sev ratio: 0.62 TANYA indexed to BSA (cm^2/m^2): 1.7 AI P1/2t: 790.2 msec AI dec slope: 168.8 cm/sec2 MV E max haider: 54.5 cm/sec TR max haider: 217.6 cm/sec MV A max haider: 78.7 cm/sec TR max P.9 mmHg MV E/A: 0.69 PA V2 max: 56.9 cm/sec Med Peak E' Haider: 4.6 cm/sec PA V2 mean: 43.3 cm/sec E/E' med: 11.9 PA mean P.80 mmHg Lat Peak E' Haider: 5.6 cm/sec PA pr(Accel): 39.6 mmHg E/E' lat: 9.8 E/e' average: 10.9 MV dec time: 0.23 sec SV(LVOT): 83.0 ml Reading Physician:03:54 PM
== END ==
PROVIDERS: PCP Family Medicine; Referring Provider Internal Medicine Cardiovascular Disease; Visit Provider Internal Medicine Cardiovascular Disease
DX: I50.22 Chronic systolic (congestive) heart failure (principal); I08.3 Combined rheumatic disorders of mitral, aortic and tricuspid valves; I77.89 Other specified disorders of arteries and arterioles
CPT/HCPCS: 93306

== ENCOUNTER → 2023-06-20 07:43 | Outpatient (CLI) | payer MEDICARE, SELFPAY ==
--- NOTE | 2023-06-20 | DI.ECHO.S_ITS ---
[facility]---------+ [facility] +---------+ : : [address] : : : : [id number] : : : : Phone: [phone]---------+ Echocardiogram Report + + :Name: BRYCE CARRASCO Study Date: 06/20/2023 Height: 73 in : :[facility] ReadingLocation: Weight: 165 lb : : Gender: Male BSA: 2.0 m2 : :: 1940 Age: 82 yrs BP: 112/64 mmHg: :Reason For Study: SYSTOLIC HEART FAILURE : :Ordering Physician: GEOVANNI, : :SERA Performed By: Dominic Batista : :Referring: SERA GALARZA : + + Interpretation Summary The left ventricle is normal in size. LVEF 40 to 45%. There has been no significant change in LVEF since the previous exam. There is mild global hypokinesis of the left ventricle. The right ventricle is mildly dilated. The right ventricular systolic function is normal. Borderline prolapse of the posterior mitral leaflet without any significant change. No failed leaflet. No significant calcification. There is moderate mitral regurgitation. Compared to the prior echo study, there has been no change in the severity of mitral regurgitation. There is moderate aortic regurgitation. Compared to the prior echo study, there has been no change in the severity of aortic regurgitation. There is mild tricuspid regurgitation. The right ventricular systolic pressure is estimated to be at least 26 mmHg based on an estimated right atrial pressure of 3 mm Hg. 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 4.4 cm in diameter. Previously 4.2-4.3 cm. Procedure: A two-dimensional transthoracic echocardiogram with color flow and Doppler was performed. The study quality was technically adequate. Comparison is made with the echocardiogram of 01/10/2023. The patient had occasional PVCs during the exam. The heart rate ranged between 45-67 bpm during the study. The patient was in normal sinus rhythm during the exam. Left Ventricle: The left ventricle is normal in size. There is mild concentric left ventricular hypertrophy. Proximal septal thickening is noted. There is no thrombus. The ejection fraction is estimated to be 40-45%. There has been no significant change since the previous exam. There is mild global hypokinesis of the left ventricle. Compared to the prior exam, the left ventricular wall motion has not changed. MV E/A: 0.65 Med Peak E' Haider: 3.2 cm/sec E/E' med: 13.0. Right Ventricle: The right ventricle is mildly dilated. The right ventricular systolic function is normal. Atria: The left atrium is moderately dilated. The left atrium has remained unchanged in size since the prior echo exam. The right atrium is mildly dilated. A prominent eustachian valve is noted. The interatrial septum grossly appears intact with no obvious evidence for an atrial septal defect. Mitral Valve: There is a flat closure plane of the the mitral valve leaflets. Borderline prolapse of the posterior mitral leaflet without any significant change. No failed leaflet. No significant calcification. There is no mitral valve stenosis. There is moderate mitral regurgitation. Compared to the prior echo study, there has been no change in the severity of mitral regurgitation. Aortic Valve: The aortic valve is trileaflet. There is no aortic valve stenosis. There is moderate aortic regurgitation. Compared to the prior echo study, there has been no change in the severity of aortic regurgitation. Tricuspid Valve: The tricuspid valve is normal. There is no tricuspid stenosis. There is mild tricuspid regurgitation. The right ventricular systolic pressure is estimated to be at least 26 mmHg based on an estimated right atrial pressure of 3 mm Hg. Pulmonic Valve: The pulmonic valve leaflets are thin and pliable; valve motion is normal. There is no pulmonic valvular stenosis. There is mild pulmonic regurgitation. Great Vessels: The aortic root is mildly dilated. The ascending aorta is at the upper limits of normal in size. The IVC is of normal diameter and collapses greater than 50% with a sniff. This suggests a low right atrial pressure of 3 mm Hg. Pericardium/ Pleura There is no pericardial effusion. There is no pleural effusion. MMode/2D Measurements & Calculations LVIDd: 5.6 cm LVOT diam: 2.4 cm LVIDs: 4.2 cm Ao root diam: 4.4 cm FS: 24.1 % asc Aorta Diam: 3.6 cm IVSd: 1.3 cm Ao Arch Diam (Prox Trans): 3.6 cm LVPWd: 1.1 cm LV guerra. diameter/BSA (cm/m^2): 2.8 LV sys. diameter/BSA (cm/m^2): 2.1 LA A2 area: 25.6 cm2 RA long axis: 4.9 cm LA A4 area: 22.8 cm2 RA area: 20.6 cm2 LA length (vol): 5.8 cm RA vol: 74.0 ml LA vol: 85.7 ml RA : 37.3 ml/m2 LA vol index: 43.2 ml/m2 IVC diam: 1.5 cm RVD1 (basal): 4.6 cm RVD2 (mid): 4.5 cm TAPSE: 2.4 cm Doppler Measurements & Calculations Ao V2 max: 111.1 cm/sec LVOT Max Haider: 72.5 cm/sec Ao V2 mean: 72.5 cm/sec LV V1 max P.1 mmHg Ao max P.9 mmHg LV V1 VTI: 18.3 cm Ao mean P.4 mmHg TANYA(I,D): 3.8 cm2 Ao V2 VTI: 21.8 cm TANYA(V,D): 2.9 cm2 sev ratio: 0.84 TANYA indexed to BSA (cm^2/m^2): 1.9 AI P1/2t: 564.0 msec AI dec slope: 282.3 cm/sec2 MV E max haider: 41.8 cm/sec TR max haider: 242.7 cm/sec MV A max haider: 64.7 cm/sec TR max P.6 mmHg MV E/A: 0.65 PA V2 max: 90.4 cm/sec Med Peak E' Haider: 3.2 cm/sec PA V2 mean: 63.2 cm/sec E/E' med: 13.0 PA mean P.8 mmHg Lat Peak E' Haider: 3.4 cm/sec E/E' lat: 12.4 E/e' average: 12.7 MV dec time: 0.38 sec SV(LVOT): 82.7 ml Reading Physician:11:37 AM
== END ==
LOC: ECHO 07:44
PROVIDERS: PCP Family Medicine; Referring Provider Family Medicine; Visit Provider Family Medicine
DX: I08.3 Combined rheumatic disorders of mitral, aortic and tricuspid valves (principal); I50.23 Acute on chronic systolic (congestive) heart failure; I77.810 Thoracic aortic ectasia
CPT/HCPCS: 93306

== ENCOUNTER 2023-09-15 07:10 | Outpatient (CLI) | payer MEDICARE, SELFPAY ==
[2023-09-15] VITALS (12 sets, daily range): BP systolic 103–151; BP diastolic 51–66; PULSE 48–66; RESP 11–20; TEMP 36.4; O2SAT 96–99
--- NOTE | 2023-09-15 08:00 | DI.RAD.S_ITS ---
PROCEDURE: PAIN L/S FACET INJ/BLK 1ST CAROLA INDICATIONS: Bilateral L2-L3 and L4 medial branch block SA COMPARISON: [facility], , PAIN L/S FACET INJ/BLK 1ST CAROLA, 03/18/2020, 9:32. FINDINGS: Fluoroscopic spot filming was performed to verify placement of spinal needles at the labeled right L2, L3-L4 level(s), as labeled on the films. Appropriate location(s) of the needle tip(s) was confirmed by injection of iodinated contrast. IMPRESSION: Contrast and needle localization overlying right L2, L3 and L4. Dictated by: Marta Pham M.D. on 09/15/2023 at 16:53 Approved by: Marta Pham M.D. on 09/15/2023 at 16:53
[2023-09-15] MEDS: MIDAZOLAM 2 MG/2 ML VIAL IV (08:08)
--- NOTE | 2023-09-15 08:10 | PC.NURSE ---
Patient states I normally have low heart rate 40'-60's with frequent PVC's with some pauses. information reviewed with Dr Lancaster no new orders.
[2023-09-15] MEDS: iopamidoL 15 ML VIAL 3 ML INJ (08:16)
[2023-09-15] MEDS: LIDOCAINE 1% 20 ML 5 ML INJ (08:16)
[2023-09-15] MEDS: LIDOCAINE 2% INJ SDV 5ML 10 ML INJ (08:17)
--- NOTE | 2023-09-15 08:34 | P.PCN_ITS ---
Date/Time/Diagnoses Date of procedure: 09/15/23 Time of procedure: 08:34 Pre-procedure diagnosis: 1. FACET ARTHROPATHY Post-procedure diagnosis: same Procedure Notes Procedure: 1. BILATERAL L2, L3, L4 DIAGNOSTIC MB BLOCKS Indications: Evan is referred by Dr. Pascual for treatment of Bilateral Axial LBP. Physician: Saji Lancaster Total Fluoroscopy time (seconds): 15 Total sedation minutes: 20 Complications: none Procedure in detail & Post-procedure care: DESCRIPTION OF PROCEDURE Fluoroscopically guided, contrast-controlled bilateral L2, L3, L4 medial branch blocks with 0.5cc of 2% Lidocaine. Following review of allergy and review of potential side effects and complications, including, but not necessarily limited to, infection, allergic reaction, local tissue breakdown, nerve injury, paralysis, stroke and possible , the patient indicated that the patient understood and agreed to proceed. An informed consent document was signed by the patient, witnessed by a nurse, and placed in the patient's chart. After review of previous anaesthesic history and IV conscious sedation the patient was deemed safe to proceed with today's procedure with IV conscious sedation as ASA class II designation. Safety time-out was performed to confirm patient ID, procedure to be performed and site of procedure. IV sedation was accomplished with a combination of 2mg of Versed was administered by the RN af ter DO order, titrated to patient comfort during the course of the procedure while the patient remained responsive to all verbal commands In the prone position, following sterile prep and drape of the lumbar region, the right L2, L3, L4 anatomical location of the medial branch of the dorsal ramus was identified fluoroscopically. Subsequently an anesthetic skin wheal using 1% lidocaine solution was initiated at each of the anatomical spots. Subsequently then a 22-gauge 3.5-inch spinal needle was atraumatically introduced and advanced under fluoroscopic guidance at each of the corresponding sites at the right L2, L3, L4 MB. After negative aspiration, 0.2cc of Isovue 200 was injected, confirming placement without vascular or intrathecal uptake. Subsequently then 0.5cc of 2% Lidocaine solution was injected at each of the corresponding sites at the right L2, L3, L4 medial branch locations. The identical procedure was replicated on the left. The patient tolerated the procedure well without signs or symptoms of complications. The patient tolerated the procedure well without signs or symptoms of complications prior to transfer to the recovery area continued monitoring without incident. Post-procedure, the patient was monitored initiating provocative activities to measure the amount of relief from block of the facetogenic pain. The patient reported a VAS of 7 prior to the procedure and a post-procedure VAS of 1. It has been a pleasure to assist in the diagnostic and therapeutic care of your patient. POST OP INSTRUCTIONS The patient was provided with a Pain Log to complete over the next several hours and subsequent days prior to the patient's follow up with the ordering physician. 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 The patient is aware, was provided, once again, with a Pain Log and will follow up with the referring physician for review and clinical correlation
--- NOTE | 2023-09-15 09:33 | PC.NURSE ---
Post Injection Patient to post care room s/p MBB-SA by Dr. Lancaster. Patient complained of dizziness to head when transferring to recovery chair from wheel chair. Patient tolerated coffee, water and cookies while in recovery. Patient complained of dizziness at each vital sign capture. After 15 minutes patient stated that dizziness was lifting. Patient able to ambulate in recovery room consistent with pre procedure ambulation gait assessed by this RN. Patient stated that he was going home with [id number] who would be staying with the patient today. Patient deemed safe to D/C home. Patient d/c'd at 0909.
== END 2023-09-15 09:10 | disposition home or self-care (01) ==
PROVIDERS: PCP Family Medicine; Referring Provider Physical Medicine & Rehabilitation; Visit Provider Physical Medicine & Rehabilitation
DX: M47.816 Spondylosis without myelopathy or radiculopathy, lumbar region (principal)
CPT/HCPCS: 64493; 64494; 99152; J2250

== ENCOUNTER → 2023-11-05 10:56 | Outpatient (CLI) | payer MEDICARE, SELFPAY | PROVIDERS: PCP Family Medicine; Visit Provider Registered Nurse | DX: R30.0 Dysuria (principal) | CPT/HCPCS: 87077; 87086; 87186 ==

== ENCOUNTER 2024-03-18 19:11 | Emergency (ER) | payer MEDICARE, SELFPAY ==
[2024-03-18 19:15] VITALS: BP 178/84; PULSE 65; RESP 16; TEMP 36.5; O2SAT 99; BMI 22.4
--- NOTE | 2024-03-18 19:53 | ED_ITS ---
HPI - Skin/Abscess/Foreign Bdy General Chief complaint: Skin/Abscess/Foreign Body Stated complaint: hearing aid parts stuck in ears Time Seen by Provider: 03/18/24 19:48 Source: patient Mode of arrival: Family Vehicle Limitations: no limitations History of Present Illness HPI narrative: Patient was an 83-year-old male here for evaluation of concern that potentially a piece of his hearing aid is in both of his ears. He states that he did try to flush his ears prior to arrival. He states it was a small white plastic piece. Related Data Home Medications Medication Instructions Recorded Confirmed acetaminophen 325 mg tablet 650 mg PO Q6H PRN Pain (Scale 02/11/20 11/05/23 (Tylenol) Score 1-3) metoprolol succinate 50 mg 50 mg PO BID 01/21/22 11/05/23 tablet,extended release 24 hr rosuvastatin 10 mg tablet 10 mg PO BEDTIME 01/21/22 11/05/23 spironolactone 25 mg tablet 12.5 mg PO DAILY 07/08/22 11/05/23 oxycodone-acetaminophen 5 mg-325 1 tab PO Q4H PRN pain 08/21/22 11/05/23 mg tablet sacubitril 49 mg-valsartan 51 mg 1 tab PO BID 08/18/23 11/05/23 tablet (Entresto) Allergies Allergy/AdvReac Type Severity Reaction Status Date / Time codeine [CODEINE] AdvReac Mild UPSET Verified 11/05/23 11:10 STOMACH Review of Systems ENT Ears, Nose, Mouth, and Throat: Reports system reviewed and no additional complaints, except as documented Patient History Medical History Degenerative joint disease of knee Scoliosis Impingement syndrome of left shoulder Chronic GERD DJD of both shoulders Urethral stricture Facet arthropathy, lumbar 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 Rotator cuff arthropathy Cataracts, bilateral Rotator cuff arthropathy of right shoulder Shoulder impingement syndrome Lumbar radiculopathy Diverticular disease Diverticulitis of intestine (10/15/14) Surgical History H/O ileostomy S/P TURP Family History Father Heart disease Social History household members: spouse Smoking Status: Never smoker Smoking Status: Never smoker alcohol intake frequency: other Exam Initial Vital Signs Initial Vital Signs: Vital Signs Temperature 97.7 F 03/18/24 19:15 Pulse Rate 65 03/18/24 19:15 Respiratory Rate 16 03/18/24 19:15 Blood Pressure 178/84 H 03/18/24 19:15 Pulse Oximetry 99 03/18/24 19:15 Oxygen Delivery Method Room Air 03/18/24 19:15 HENMT Ears: hearing grossly normal bilaterally, external ears normal, TM's normal bilaterally, EAC's normal and other (No foreign body noted) Course Vital Signs Vital signs: Vital Signs - 8 hr 03/18/24 19:15 03/18/24 19:59 Temperature 97.7 F Pulse Rate 65 Respiratory Rate 16 19 Blood Pressure 178/84 H Pulse Oximetry 99 Oxygen Delivery Method Room Air MDM - Skin/Abscess/Foreign Bdy MDM Narrative Medical decision making narrative: There were no foreign bodies noted in either external auditory canals. The tympanic membranes are intact. No signs of any infection. Afebrile. Will discharge patient home. Discharge Plan Departure Patient Disposition: Home Clinical Impression: Feared condition not demonstrated Activity Restrictions/Additional Instructions: No foreign bodies were noted in either ear canals. You can continue to wear your hearing aids as needed. Return to the emergency department for new symptoms. Prescriptions: No Action oxycodone-acetaminophen 5-325 mg tablet 1 tab PO Q4H PRN (Reason: pain) spironolactone 25 mg tablet 12.5 mg PO DAILY acetaminophen [Tylenol] 325 mg tablet 650 mg PO Q6H PRN (Reason: Pain (Scale Score 1-3)) metoprolol succinate 50 mg tablet extended release 24 hr 50 mg PO BID rosuvastatin 10 mg tablet 10 mg PO BEDTIME Entresto 49-51 mg tablet 1 tab PO BID Referrals: Saji Pascual MD [Primary Care Provider] - Stand Alone Forms: Patient Portal/API/Survey
--- NOTE | 2024-03-18 19:57 | PC.NURSE ---
Pt reports a small white piece of plastic from his hearing aids fell off in his ear and he feels he has something stuck in both ears. Ears examined; ear drum well appearing--no sign of white foreign body in ear. No ear drainage noted either.
[2024-03-18 19:59] VITALS: RESP 19
== END 2024-03-18 20:00 | disposition home or self-care (01) ==
PROVIDERS: Emergency Provider Emergency Medicine; PCP Family Medicine
DX: S00.452A Superficial foreign body of left ear, initial encounter (principal); S00.451A Superficial foreign body of right ear, initial encounter
CPT/HCPCS: 99281

== ENCOUNTER 2024-06-26 08:07 | Outpatient (CLI) | payer MEDICARE, SELFPAY ==
[2024-03-21 13:46] VITALS: BMI 22.4
[2024-06-26] VITALS (7 sets, daily range): BP systolic 113–173; BP diastolic 61–76; PULSE 55–66; RESP 12–16; TEMP 36.5; O2SAT 97–100
[2024-06-26] MEDS: MIDAZOLAM 2 MG/2 ML VIAL IV (08:56)
[2024-06-26] MEDS: BUPIVACAINE 0.25% (PF) VIAL 2 ML INJ (09:03)
[2024-06-26] MEDS: DEXAMETHASONE 10 MG/ML VIAL INJ (09:04)
[2024-06-26] MEDS: BETAMETHASONE 30 MG/5 ML MDV 12 MG INJ (09:04)
[2024-06-26] MEDS: iopamidoL 15 ML VIAL 3 ML INJ (09:05)
--- NOTE | 2024-06-26 09:16 | P.PCN_ITS ---
Date/Time/Diagnoses Date of procedure: 06/26/24 Time of procedure: 09:16 Pre-procedure diagnosis: 1. FORAMINAL STENOSIS WITH LE SYMPTOMS Post-procedure diagnosis: same Procedure Notes Procedure: 1. FLUOROSCOPICALLY GUIDED CONTRAST CONTROLLED TRANSFORAMINAL EPIDURAL STEROID INJECTION - RIGHT L3/4 TFESI Indications: Evan is referred by Dr. Pascual for treatment of Foraminal Stenosis with right LE Symptoms Physician: Saji Lancaster Total Fluoroscopy time (seconds): 9 Total sedation minutes: 13 Complications: none Procedure in detail & Post-procedure care: FINDINGS Foraminal Nerve Root Compression secondary to disc disease and facet hypertrophy DESCRIPTION OF PROCEDURE Following review of allergy and review of potential side effects and complications, including, but not necessarily limited to, infection, allergic reaction, local tissue breakdown, stroke, temporary or permanent nerve injury, paralysis, and possible , the patient indicated that the patient understood and agreed to proceed. An informed consent document was signed by the patient, witnessed by a nurse, and placed in the patient's chart. Additionally, other treatment options including medications, modalities, and physical therapy were reviewed with the patient. After review of previous anaesthesic history and IV conscious sedation the patient was deemed safe to proceed with today?s procedure with IV conscious sedation as ASA class II designation. Safety time-out was performed to confirm patient ID, procedure to be performed and site of procedure. IV sedation was accomplished with a combination of 2mg of Versed was administered by the RN after DO order, titrated to patient comfort during the course of the procedure while the patient remained responsive to all verbal commands In the prone position following sterile prep and drape of the lumbar region, the right L3/4 posterior neuroforamen was identified fluoroscopically. The skin was anesthetized via a 25-gauge 1.5-inch needle with 1% lidocaine solution. At this point, a 25-gauge 3.5-inch spinal needle was atraumatically introduced and advanced under fluoroscopic guidance through the posterior right L3/4 neuroforamen to approximately the anterior aspect of the canal. Depth was confirmed on lateral view. Following negative aspiration, injection of approximately 1.5 cc of Isovue 200 under live fluoroscopy in the AP view conf irmed excellent flow along the nerve root, into the epidural space without vascular or intrathecal uptake observed Radiological data, including multiple fluoroscopic views of the lumbosacral spine, reveal a spinal needle at the right L3/4 posterior neuroforamen. Subsequent views show flow of contrast material flowing superiorly and inferiorly along the nerve root confirming epidural flow. Subsequently, a test dose of 1.5 cc of 1% lidocaine solution was administered and patient was observed for two minutes for signs or symptoms of complications, including abdominal pain, shortness of breath, bilateral upper or lower extremity weakness, nausea and vomiting, prior to steroid injection. At this point, a total of 2cc or 10mg of dexamethasone and 6mg of betamethasone was injected without incident. The patient tolerated the procedure well without signs or symptoms of complications prior to transfer to the recovery area continued monitoring without incident. The patient was then transferred to the recovery area where they were observed for an appropriate time after the injection. The patient reported a VAS score of 7 prior to the procedure and a post-procedure VAS of 0. POST OP INSTRUCTIONS The patient was provided a Pain Log to continue to record their response to the target-specific procedure prior to follow-up visit with their referring phy sician. Additionally, specific post-injection care instructions and a contact number to our office were provided if concerns arise regarding possible complications associated with the procedure are suspected.
== END 2024-06-26 09:30 | disposition home or self-care (01) ==
PROVIDERS: PCP Family Medicine; Referring Provider Physical Medicine & Rehabilitation; Visit Provider Physical Medicine & Rehabilitation
DX: M48.061 Spinal stenosis, lumbar region without neurogenic claudication (principal); M51.16 Intervertebral disc disorders with radiculopathy, lumbar region; M47.26 Other spondylosis with radiculopathy, lumbar region
CPT/HCPCS: 64483; 99152; J0702; J1100; J2250; J3490

== ENCOUNTER → 2024-07-11 09:19 | Outpatient (CLI) | payer MEDICARE, SELFPAY ==
[2024-03-21 13:46] VITALS: BMI 22.4
--- NOTE | 2024-07-11 09:20 | DI.ECHO.S_ITS ---
[facility] : : [address] : : [place] : : [id number] : : Phone: [phone] Echocardiogram Report + + :Name: BRYCE CARRASCO Study Date: 07/11/2024 Height: 73 in : :[facility] ReadingLocation: Weight: 165 lb : : Gender: Male BSA: 2.0 m2 : :: 1940 Age: 83 yrs BP: 105/59 mmHg: :Reason For Study: SYSTOLIC HEART FAILURE : :Ordering Physician: MARY, : :LYLY Performed By: Dominic Batista : :Referring: LYLY HERNANDEZ : + + Interpretation Summary The left ventricle is normal in size. The ejection fraction is estimated to be 50-55%. Compared to the prior exam, the left ventricular function is improved. Previous LVEF 40 to 45%. The right ventricle is normal in size and function. There is moderate mitral regurgitation. Compared to the prior echo study, there has been no change in the severity of mitral regurgitation. There is moderate aortic regurgitation. Compared to the prior echo study, there has been no change in the severity of aortic regurgitation. There is mild tricuspid regurgitation. The right ventricular systolic pressure is estimated to be at least 30 mmHg based on an estimated right atrial pressure of 3 mm Hg. 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 4.6 cm in diameter. Previously 4.2-4.4 cm in diameter. 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 4.0 cm in diameter. Procedure: A two-dimensional transthoracic echocardiogram with color flow and Doppler was performed. The study quality was technically good. Comparison is made with the echocardiogram of 06/20/2023. The patient was in sinus bradycardia with heart rates between 49-53 bpm during the exam. Left Ventricle: The left ventricle is normal in size. There is normal left ventricular wall thickness. There is no thrombus. The ejection fraction is estimated to be 50-55%. Compared to the prior exam, the left ventricular function is improved. There are no focal wall motion abnormalities. Diastolic parameters suggest a relaxation abnormality of the left ventricle, consistent with probable normal filling pressures. Right Ventricle: The right ventricle is normal in size and function. Atria: The left atrium is mildly dilated. The left atrium has mildly decreased in size since the prior echo exam. Right atrial size is normal. There is no Doppler evidence for an interatrial shunt. The atrial septum is aneurysmal. Mitral Valve: The mitral valve leaflets are mildly calcified. There is a flat closure plane of the the mitral valve leaflets. There is borderline mitral valve prolapse. There is prolapse of the posterior mitral valve leaflet (s). There is moderate mitral regurgitation. Compared to the prior echo study, there has been no change in the severity of mitral regurgitation. Aortic Valve: The aortic valve is trileaflet. The aortic valve opens well. There is no aortic valve stenosis. There is moderate aortic regurgitation. Compared to the prior echo study, there has been no change in the severity of aortic regurgitation. Tricuspid Valve: The tricuspid valve leaflets are thin and pliable. There is mild tricuspid regurgitation. The right ventricular systolic pressure is estimated to be at least 30 mmHg based on an estimated right atrial pressure of 3 mm Hg. Pulmonic Valve: The pulmonic valve leaflets are thin and pliable; valve motion is normal. There is mild pulmonic regurgitation. 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 The pulmonary artery is normal size. The IVC is of normal diameter and collapses greater than 50% with a sniff. This suggests a low right atrial pressure of 3 mm Hg. Pericardium/ Pleura There is no pericardial effusion. There is no pleural effusion. MMode/2D Measurements & Calculations LVIDd: 4.5 cm LVOT diam: 2.7 cm LVIDs: 2.7 cm Ao root diam: 4.6 cm FS: 38.5 % asc Aorta Diam: 4.0 cm EPSS: 1.4 cm IVSd: 0.88 cm LVPWd: 1.0 cm LV guerra. diameter/BSA (cm/m^2): 2.2 LV sys. diameter/BSA (cm/m^2): 1.4 LA A2 area: 24.3 cm2 RA long axis: 4.0 cm LA A4 area: 15.5 cm2 RA area: 10.8 cm2 LA length (vol): 4.6 cm RA vol: 24.8 ml LA vol: 70.0 ml RA : 12.5 ml/m2 LA vol index: 35.3 ml/m2 IVC diam: 1.3 cm RVD1 (basal): 3.5 cm RVD2 (mid): 3.8 cm TAPSE: 1.7 cm Doppler Measurements & Calculations Ao V2 max: 93.1 cm/sec LVOT Max Haider: 73.3 cm/sec Ao V2 mean: 67.1 cm/sec LV V1 max P.1 mmHg Ao max P.5 mmHg LV V1 VTI: 18.6 cm Ao mean P.0 mmHg TANYA(I,D): 5.3 cm2 Ao V2 VTI: 20.7 cm TANYA(V,D): 4.6 cm2 sev ratio: 0.90 TANYA indexed to BSA (cm^2/m^2): 2.7 MV E max haider: 38.6 cm/sec TR max haider: 261.0 cm/sec MV A max haider: 60.5 cm/sec TR max P.3 mmHg MV E/A: 0.64 PA V2 max: 60.9 cm/sec Med Peak E' Haider: 5.0 cm/sec PA V2 mean: 46.1 cm/sec E/E' med: 7.8 PA mean P.92 mmHg Lat Peak E' Haider: 5.1 cm/sec PA pr(Accel): 22.5 mmHg E/E' lat: 7.6 E/e' average: 7.7 MV dec time: 0.29 sec SV(LVOT): 109.6 ml Reading Physician:04:[id number] PM
== END ==
PROVIDERS: PCP Family Medicine; Referring Provider Internal Medicine Cardiovascular Disease; Visit Provider Internal Medicine Cardiovascular Disease
DX: I50.22 Chronic systolic (congestive) heart failure (principal); I08.3 Combined rheumatic disorders of mitral, aortic and tricuspid valves; I77.810 Thoracic aortic ectasia; I77.89 Other specified disorders of arteries and arterioles
CPT/HCPCS: 93306

== ENCOUNTER 2024-08-14 14:37 | Inpatient (IN) | payer MEDICARE, SELFPAY ==
[2024-03-21 13:46] VITALS: BMI 22.4
[2024-08-14] VITALS (59 sets, daily range): BP systolic 86–132; BP diastolic 55–94; PULSE 63–133; RESP 11–30; TEMP 36.3; O2SAT 81–99; BMI 22.4
--- NOTE | 2024-08-14 15:02 | DI.RAD.S_ITS ---
PROCEDURE: XR CHEST 1V INDICATIONS: Shortness of breath TECHNIQUE: One view of the chest was acquired. COMPARISON: [facility], CR, XR CHEST 2V, 04/16/2022, 8:35. [facility], CR, XR CHEST 1V, 09/13/2021, 14:26. FINDINGS: Surgical changes and devices: None. Lungs and pleura: Diffuse interstitial opacities and peribronchial cuffing. Mediastinum: Mediastinal contours appear normal. Heart size is enlarged. Bones and chest wall: No suspicious bony lesions. Overlying soft tissues appear unremarkable. IMPRESSION: Lrgz-cd-elklbidn pulmonary edema. Superimposed infection not excluded. Dictated by: Shivam Alberto M.D. on 08/14/2024 at 15:58 Approved by: Shivam Alberto M.D. on 08/14/2024 at 15:58
--- NOTE | 2024-08-14 15:04 | EKG_ITS ---
[place] [id number] [place] [id number] Test Date: 2024-08-14 Pat Name: Evan Ojeda Department: Room: Gender: Male [employer] Operator: JA : 1940 Requested By: Order Number: [id number] Reading MD: Brandon De La Rosa Measurements Intervals [place] Rate: 124 P: 76 [place]: 166 QRS: -47 QRSD: 88 T: -21 QT: 332 QTc: 476 Interpretive Statements Sinus tachycardia with premature atrial complexes with aberrant conduction Left axis deviation Minimal voltage criteria for LVH, may be normal variant ( R in aVL ) Inferior infarct , age undetermined Electronically Signed On 08-17-2024 0:08:02 PDT by Brandon De La Rosa
[2024-08-14 15:08] LABS: Add Manual Diff / Slide Review NO; Basophils Absolute Auto 100 /uL (0-100); Basophils Percent Auto 0.7 % (0-2); Eosinophils Absolute Auto 200 /uL (0-450); Eosinophils Percent Auto 2.1 % (2-4); Hematocrit 46.2 % (41-53); Lymphocytes Absolute Auto 2300 /uL (1100-4500); Mean Corpuscular HGB Conc 34.6 % (30-36); Mean Corpuscular Hemoglobin 31.2 PG (26-34); Mean Corpuscular Volume 90.3 fL (80-100); Monocytes Absolute Auto 900 /uL (0-900); Monocytes Percent Auto 10.8 % (3-14); Neutrophils Absolute Auto 4800 /uL (1500-7000); Neutrophils Percent Auto 58.4 % (50-75); Platelet Count 211 X10^3/uL (150-400); Red Blood Cell Count 5.12 X10^6/uL (4.5-5.9); Red Cell Distribution Width 13.9 % (11.6-14.8); White Blood Cell Count 8.2 X10^3/uL (4.5-11.0)
[2024-08-14 15:14] LABS: INR 1.1 (0.9-1.3); Prothrombin Time 12.1 SECONDS (9.4-12.5)
[2024-08-14 15:18] LABS: Alanine Aminotransferase 20 IU/L (<50); Albumin 4.3 g/dL (3.5-5.0); Albumin Globulin Ratio 1.5 (1.0-2.8); Alkaline Phosphatase 75 U/L (38-126); Aspartate Aminotransferase 30 IU/L (17-59); BUN Creatinine Ratio 12.4 (6-22); Bilirubin Total 0.9 mg/dL (0.2-1.3); Blood Urea Nitrogen 14 mg/dL (9-20); Calcium 9.4 mg/dL (8.4-10.2); Carbon Dioxide 21 mmol/L (22-32); Chloride 106 mmol/L (98-107); Estimated Glomerular Filt Rate > 60 mL/min (>60); Globulin 2.9 g/dL (1.7-4.1); Glucose 121 mg/dL (70-99); HEMOLYSIS < 15 (0-50); Potassium 4.2 mmol/L (3.4-5.1); Sodium 138 mmol/L (137-145); Total Protein 7.2 g/dL (6.3-8.2)
--- NOTE | 2024-08-14 15:26 | ED_ITS ---
HPI - SOB/Dyspnea General Chief Complaint: Shortness of Breath/Dyspnea Stated Complaint: chest pain Time Seen by Provider: 08/14/24 15:10 Source: patient Mode of arrival: Ambulatory Limitations: no limitations History of Present Illness HPI Narrative: Patient here with daughter and mother for shortness of breath that started when he awoke this morning. He denies denies any chest pain. No palpitations. No prior history of atrial flutter atrial fibrillation. Patient is not on any blood thinners. He does have history of CHF. Denies any limb swelling. Patient sees Cardiology Dr. Byrd Related Data Home Medications ?Medication ?Instructions ?Recorded ?Confirmed acetaminophen 325 mg tablet 650 mg PO Q6H PRN Pain (Sc vu 02/11/20 08/15/24 (Tylenol) Score 1-3) rosuvastatin 10 mg tablet 10 mg PO BEDTIME 01/21/22 spironolactone 25 mg tablet 12.5 mg PO DAILY 07/08/22 08/15/24 oxycodone-acetaminophen 5 mg-325 1 tab PO Q4H PRN pain 08/21/22 08/15/24 mg tablet sacubitril 49 mg-valsartan 51 mg 1 tab PO BID 08/18/23 08/15/24 tablet (Entresto) Previous Rx's ?Medication ?Instructions ?Recorded amiodarone 200 mg tablet 400 mg (2 x 200 mg) PO BIDWM #60 08/16/24 tabs apixaban 5 mg tablet (Eliquis) 5 mg PO BID #60 tabs metoprolol succinate 50 mg 25 mg (1/2 x 50 mg) PO BID #60 tabs 08/16/24 tablet,extended release 24 hr Allergies Allergy/AdvReac Type Severity Reaction Status Date / Time codeine (CODEINE) AdvReac Mild UPSET Verified 06/18/24 08:28 STOMACH Review of Systems Review of Systems Narrative: GENERAL: Negative chills, fatigue, malaise, fever, sweats. HEENT: Negative sinus pain, ear pain, sore throat RESPIRATORY: Positive dyspnea, negative cough CARDIOVASCULAR: Negative chest pain, palpitations GASTROINTESTINAL: Negative vomiting, nausea, abdominal pain : Negative dysuria, frequency, hematuria MUSCULOSKELETAL: Negative muscle or bony pain SKIN: Negative rash, skin lesions NEUROLOGIC: Negative weakness, numbness ROS Unobtainable: All systems reviewed & are unremarkable except as noted in HPI and below Patient History Medical History Degenerative joint disease of knee Scoliosis Impingement syndrome of left shoulder Chronic GERD DJD of both shoulders Urethral stricture Facet arthropathy, lumbar 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 EYES: Pupils equal round ENT: Mucous membranes moist. NECK: Trachea midline. CARDIOVASCULAR: Regular rate and rhythm, tachycardic RESPIRATORY: Clear to auscultation. Breath sounds equal bilaterally. No wheezes, rales, or rhonchi. GASTROINTESTINAL: Abdomen soft, non-tender EXTREMITIES: No gross deformities. No pedal edema ankle edema BACK: No flank tenderness. NEURO: AOx4. Clear speech SKIN: Warm and dry PSYCH: Not anxious, is cooperative Initial Vital Signs Initial Vital Signs: Vital Signs Temperature 97.4 F L 08/14/24 14:40 Pulse Rate 126 H 08/14/24 14:40 Respiratory Rate 20 08/14/24 14:40 Blood Pressure 108/71 08/14/24 14:40 Pulse Oximetry 84 L 08/14/24 14:40 Oxygen Delivery Method Room Air 08/14/24 14:40 Procedures Cardioversion Time of Cardioversion: 18:44 Consent Signed: Yes Indication: Atrial flutter Stability: Stable Number of attempts (shocks): 1 Joules used: 150 Cardiac rhythm post-cardioversion: Normal sinus rhythm Procedural Sedation Time of procedure: 18:40 Consent signed: Yes Time out performed: Yes Indication: cardioversion Presedation Evaluation: Mallampati score ASA class ASA Class: II Mallampati Airway Classification: Class I Time of Last PO Intake: 12:00 Preparation: manager metal applied, pulse oximeter, capnometry used, supplemental O2 applied, reversal agents at bedside, suction/airway equipment at bedside and IV secured IV Propofol dose (mg): 65 Intraservice time/total sedation time (min): 10 ED Sedation Level: Moderate (Concious) Patient Tolerated Procedure: Well and No complications Course Orders Ordered: Discontinued Medications Acetaminophen (Acetaminophen 325 Mg Tablet) 650 mg PO Q6H PRN PRN Reason: Pain (Scale Score 1-3) Last Admin: 08/15/24 16:06 Dose: 650 mg Documented By: TEJAS Adenosine (Adenosine 6 Mg/2 Ml Vial) 6 mg IV NOW ONE Stop: 08/14/24 15:40 Last Admin: 08/14/24 15:57 Dose: 6 mg Documented By: RINKU Adenosine (Adenosine 6 Mg/2 Ml Vial) 12 mg IV NOW ONE Stop: 08/14/24 17:54 Last Admin: 08/14/24 18:00 Dose: 12 mg Documented By: RINKU Amiodarone HCl (Amiodarone 200 Mg Tablet) 400 mg PO BIDWM [facility] Last Admin: 08/16/24 08:28 Dose: 400 mg Documented By: Admin: 08/15/24 20:47 Dose: 400 mg Documented By: DEV Apixaban (Apixaban 5 Mg Tablet) 5 mg PO NOW ONE Stop: 08/14/24 18:18 Last Admin: 08/14/24 18:39 Dose: 5 mg Documented By: PILO Apixaban (Apixaban 5 Mg Tablet) 2.5 mg PO BID [facility] Last Admin: 08/15/24 09:24 Dose: 2.5 mg Documented By: TEJAS Apixaban (Apixaban 5 Mg Tablet) 5 mg PO BID [facility] Last Admin: 08/16/24 08:28 Dose: 5 mg Documented By: Admin: 08/15/24 22:10 Dose: 5 mg Documented By: DEV Atorvastatin Calcium (Atorvastatin 20 Mg Tablet) 20 mg PO BEDTIME [facility] Last Admin: 08/15/24 22:06 Dose: 20 mg Documented By: Admin: 08/15/24 00:55 Dose: 20 mg Documented By: DEV Amiodarone HCl/Dextrose (Nexterone) 150 mg in 100 mls @ 600 mls/hr IV NOW ONE; Protocol Stop: 08/14/24 19:09 Last Infusion: 08/14/24 19:46 Dose: Infused Documented By: Admin: 08/14/24 19:35 Dose: 600 mls/hr Documented By: RINKU Amiodarone HCl/Dextrose (Nexterone) 360 mg in 200 mls @ 33.333 mls/hr IV NOW ONE; Protocol Stop: 08/15/24 01:00 Last Titration: 08/15/24 01:50 Dose: Infused Documented By: Admin: 08/14/24 19:55 Dose: 33.333 mls/hr, 33.33 mls/hr Documented By: RINKU Amiodarone HCl/Dextrose (Nexterone) 180 mg in 100 mls @ 16.7 mls/hr IV CONT BHAVANA; Protocol Stop: 08/15/24 01:15 Last Admin: 08/15/24 07:57 Dose: Not Given Documented By: TEJAS Amiodarone HCl/Dextrose (Nexterone) 360 mg in 200 mls @ 33.333 mls/hr IV NOW ONE; Protocol Stop: 08/15/24 04:19 Last Admin: 08/14/24 22:20 Dose: Not Given Documented By: DEV Amiodarone HCl/Dextrose (Nexterone) 360 mg in 200 mls @ 16.7 mls/hr IV CONT BHAVANA; Protocol Stop: 08/15/24 04:00 Last Admin: 08/15/24 07:57 Dose: Not Given Documented By: TEJAS Amiodarone HCl/Dextrose (Nexterone) 180 mg in 100 mls @ 16.7 mls/hr IV CONT BHAVANA; Protocol Stop: 08/15/24 04:20 Last Admin: 08/14/24 22:20 Dose: Not Given Documented By: FM Amiodarone HCl/Dextrose (Nexterone) 360 mg in 200 mls @ 16.7 mls/hr IV CONT BHAVANA; Protocol Stop: 08/15/24 19:00 Last Titration: 08/15/24 20:55 Dose: Infused Documented By: Admin: 08/15/24 13:31 Dose: 16.7 mls/hr, 16.7 mls/hr Documented By: Titration: 08/15/24 13:31 Dose: Infused Documented By: Admin: 08/15/24 01:50 Dose: 16.7 mls/hr, 16.7 mls/hr Documented By: DEV Metoprolol Succinate (Metoprolol Er 50 Mg Tablet) 25 mg PO BID [facility] Last Admin: 08/16/24 08:29 Dose: 25 mg Documented By: Admin: 08/15/24 22:03 Dose: 25 mg Documented By: Admin: 08/15/24 09:24 Dose: 25 mg Documented By: Admin: 08/14/24 22:20 Dose: Not Given Documented By: DEV Naloxone HCl (Naloxone 0.4 Mg/Ml Vial) 0.2 mg IV Q2MIN PRN PRN Reason: Opiate Reversal Sacubitril-Valsartan [Entresto] 49-51 Mg Tab 1 tab PO BID [facility] Last Admin: 08/16/24 08:33 Dose: 1 tab Documented By: Admin: 08/15/24 22:10 Dose: 1 tab Documented By: Admin: 08/15/24 13:43 Dose: 1 tab Documented By: Admin: 08/14/24 22:20 Dose: Not Given Documented By: DEV Propofol (Propofol 200 Mg/20 Ml Vial) 75 mg 1 mg/kg (75 mg) IV NOW ONE Stop: 08/14/24 18:31 Last Admin: 08/14/24 18:51 Dose: 65 mg Documented By: CLARISA Spironolactone (Spironolactone 25 Mg Tablet) 12.5 mg PO DAILY [facility] Last Admin: 08/16/24 08:27 Dose: 12.5 mg Documented By: Admin: 08/15/24 13:34 Dose: 12.5 mg Documented By: TEJAS Vital Signs Vital signs: Vital Signs - 8 hr 08/14/24 14:40 08/14/24 14:47 08/14/24 14:55 Temperature 97.4 F L Pulse Rate 126 H 125 H Respiratory Rate 20 Blood Pressure 108/71 98/67 Pulse Oximetry 84 L 95 Oxygen Delivery Method Room Air Oxygen Flow Rate 08/14/24 14:55 08/14/24 15:00 08/14/24 15:00 Temperature Pulse Rate 125 H 125 H Respiratory Rate 16 25 H Blood Pressure 91/67 Pulse Oximetry 95 93 Oxygen Delivery Method Nasal Cannula Oxygen Flow Rate 2 08/14/24 15:12 08/14/24 15:12 08/14/24 15:15 Temperature Pulse Rate 124 H 123 H Respiratory Rate 25 H Blood Pressure 102/61 Pulse Oximetry 94 94 Oxygen Delivery Method Nasal Cannula Oxygen Flow Rate 2 08/14/24 15:15 08/14/24 15:33 08/14/24 15:56 Temperature Pulse Rate 127 H 124 H Respiratory Rate 24 Blood Pressure 96/71 Pulse Oximetry 97 Oxygen Delivery Method Oxygen Flow Rate 08/14/24 15:56 08/14/24 16:00 08/14/24 16:00 Temperature Pulse Rate 121 H Respiratory Rate 23 Blood Pressure 127/80 102/70 Pulse Oximetry 96 Oxygen Delivery Method Oxygen Flow Rate 08/14/24 16:15 08/14/24 16:15 08/14/24 16:30 Temperature Pulse Rate 105 H 110 H Respiratory Rate 18 Blood Pressure 111/70 Pulse Oximetry 97 98 Oxygen Delivery Method Nasal Cannula Oxygen Flow Rate 2 08/14/24 16:30 08/14/24 16:45 08/14/24 16:45 Temperature Pulse Rate 109 H Respiratory Rate 14 Blood Pressure 106/70 107/57 L Pulse Oximetry 97 Oxygen Delivery Method Oxygen Flow Rate 08/14/24 17:00 08/14/24 17:00 08/14/24 17:15 Temperature Pulse Rate 111 H 125 H Respiratory Rate 17 17 Blood Pressure 107/64 Pulse Oximetry 98 97 Oxygen Delivery Method Oxygen Flow Rate 08/14/24 17:15 08/14/24 17:30 08/14/24 17:31 Temperature Pulse Rate 127 H 127 H Respiratory Rate 17 22 Blood Pressure 116/74 Pulse Oximetry 97 96 Oxygen Delivery Method Oxygen Flow Rate 08/14/24 17:31 08/14/24 17:45 08/14/24 17:45 Temperature Pulse Rate 125 H Respiratory Rate 21 Blood Pressure 122/85 123/83 Pulse Oximetry 98 Oxygen Delivery Method Nasal Cannula Oxygen Flow Rate 2 08/14/24 18:00 08/14/24 18:00 08/14/24 18:15 Temperature Pulse Rate 127 H 127 H Respiratory Rate 24 19 Blood Pressure 128/85 Pulse Oximetry 94 93 Oxygen Delivery Method Nasal Cannula Nasal Cannula Oxygen Flow Rate 2 2 08/14/24 18:15 08/14/24 18:30 08/14/24 18:30 Temperature Pulse Rate 126 H Respiratory Rate 20 Blood Pressure 103/72 114/75 Pulse Oximetry 94 Oxygen Delivery Method Nasal Cannula Oxygen Flow Rate 2 08/14/24 18:39 08/14/24 18:39 08/14/24 18:39 Temperature Pulse Rate 127 H 127 H Respiratory Rate 20 19 Blood Pressure 130/69 130/83 Pulse Oximetry 93 94 Oxygen Delivery Method Nasal Cannula Oxygen Flow Rate 2 2 08/14/24 18:40 08/14/24 18:40 08/14/24 18:42 Temperature Pulse Rate 127 H Respiratory Rate 18 Blood Pressure 125/82 130/86 Pulse Oximetry 93 Oxygen Delivery Method Nasal Cannula Oxygen Flow Rate 2 08/14/24 18:42 08/14/24 18:44 08/14/24 18:44 Temperature Pulse Rate 128 H 128 H 128 H Respiratory Rate 18 20 18 Blood Pressure 131/86 Pulse Oximetry 95 94 Oxygen Delivery Method Nasal Cannula Nasal Cannula Oxygen Flow Rate 2 2 08/14/24 18:44 08/14/24 18:46 08/14/24 18:46 Temperature Pulse Rate 128 H Respiratory Rate 19 Blood Pressure 127/85 131/86 Pulse Oximetry 96 Oxygen Delivery Method Nasal Cannula Oxygen Flow Rate 2 08/14/24 18:48 08/14/24 18:48 08/14/24 18:49 Temperature Pulse Rate 127 H 133 H Respiratory Rate 19 16 Blood Pressure 132/84 132/94 H Pulse Oximetry 98 95 Oxygen Delivery Method Nasal Cannula Oxygen Flow Rate 2 2 08/14/24 18:50 08/14/24 18:50 08/14/24 18:52 Temperature Pulse Rate 108 H 95 H Respiratory Rate 21 12 Blood Pressure 110/70 110/70 Pulse Oximetry 95 96 Oxygen Delivery Method Nasal Cannula Oxygen Flow Rate 2 2 08/14/24 18:52 08/14/24 18:52 08/14/24 18:52 Temperature Pulse Rate 86 85 Respiratory Rate 23 24 Blood Pressure 98/64 98/64 Pulse Oximetry 96 97 Oxygen Delivery Method Nasal Cannula Oxygen Flow Rate 2 2 08/14/24 18:54 08/14/24 18:54 08/14/24 18:56 Temperature Pulse Rate 84 81 Respiratory Rate 16 19 Blood Pressure 96/61 Pulse Oximetry 96 97 Oxygen Delivery Method Nasal Cannula Nasal Cannula Oxygen Flow Rate 2 2 08/14/24 18:56 08/14/24 18:58 08/14/24 18:58 Temperature Pulse Rate 83 Respiratory Rate 11 L Blood Pressure 88/58 L 86/58 L Pulse Oximetry 97 Oxygen Delivery Method Nasal Cannula Oxygen Flow Rate 2 08/14/24 19:13 Temperature Pulse Rate 83 Respiratory Rate 18 Blood Pressure Pulse Oximetry Oxygen Delivery Method Oxygen Flow Rate MDM - SOB/Dyspnea Lab Data 08/16/24 04:12 08/16/24 04:12 Labs: Lab Results 08/14/24 Range/Units 14:56 WBC 8.2 (4.5-11.0) X10^3/uL RBC 5.12 (4.5-5.9) X10^6/uL Hgb 16.0 (13.5-17.5) g/dL Hct 46.2 (41-53) % MCV 90.3 (80-100) fL MCH 31.2 (26-34) PG MCHC 34.6 (30-36) % RDW 13.9 (11.6-14.8) % Plt Count 211 (150-400) X10^3/uL Neut % (Auto) 58.4 (50-75) % Lymph % (Auto) 28.0 (25-40) % [place] % (Auto) 10.8 (3-14) % Eos % (Auto) 2.1 (2-4) % Baso % (Auto) 0.7 (0-2) % Neut # (Auto) 4800 (8717-5049) /uL Lymph # (Auto) 2300 (6325-6032) /uL [place] # (Auto) 900 (0-900) /uL Eos # (Auto) 200 (0-450) /uL Baso # (Auto) 100 (0-100) /uL PT 12.1 (9.4-12.5) SECONDS INR 1.1 (0.9-1.3) Sodium 138 (137-145) mmol/L Potassium 4.2 (3.4-5.1) mmol/L Chloride 106 (98-107) mmol/L Carbon Dioxide 21 L (22-32) mmol/L BUN 14 (9-20) mg/dL Creatinine 1.13 (0.66-1.25) mg/dL Estimated GFR > 60 (>60) mL/min BUN/Creatinine Ratio 12.4 (6-22) Glucose 121 H (70-99) mg/dL Lactate 2.0 (0.7-2.1) mmol/L Calcium 9.4 (8.4-10.2) mg/dL Magnesium 2.0 (1.6-2.3) mg/dL Total Bilirubin 0.9 (0.2-1.3) mg/dL AST 30 (17-59) IU/L ALT 20 (<50) IU/L Alkaline Phosphatase 75 (38-126) U/L Troponin I < 0.012 (0.01-0.034) ng/mL NT-Pro-B Natriuret Pep 282 (<450) pg/mL Total Protein 7.2 (6.3-8.2) g/dL Albumin 4.3 (3.5-5.0) g/dL Globulin 2.9 (1.7-4.1) g/dL Albumin/Globulin Ratio 1.5 (1.0-2.8) Urine Dip Bedside Urine Glucose Negative Bedside Urine Bilirubin - Negative Bedside Urine Ketone - Negative Urine Specific [place] 1.005 Bedside Urine Occult Blood - Negative Bedside Urine pH 6.0 Bedside Urine Protein - Negative Bedside Urine Urobilinogen - Negative Bedside Urine Nitrite - Negative Bedside Urine Leukocytes - Negative Esterase Imaging Data Chest x-ray: Radiologist's Impression: [address] [id number] XRay Report Signed Patient: Evan Ojeda MR#: [id number] : 1940 Acct:[id number] Age/Sex: 83 / M Date of Service: 08/14/24 Loc: ED Accession Number: [id number] Procedure: XR chest 1V Ordering Provider: Pato Jackson MD PROCEDURE: XR CHEST 1V INDICATIONS: Shortness of breath TECHNIQUE: One view of the chest was acquired. COMPARISON: Merged With [facility], CR, XR CHEST 2V, 04/16/2022, 8:35. Merged With [facility], CR, XR CHEST 1V, 09/13/2021, 14:26. FINDINGS: Surgical changes and devices: None. Lungs and pleura: Diffuse interstitial opacities and peribronchial cuffing. Mediastinum: Mediastinal contours appear normal. Heart size is enlarged. Bones and chest wall: No suspicious bony lesions. Overlying soft tissues appear unremarkable. IMPRESSION: [id number] pulmonary edema. Superimposed infection not excluded. Dictated by: Shivam Alberto M.D. on 08/14/2024 at 15:58 Approved by: Shivam Alberto M.D. on 08/14/2024 at 15:58 [facility] Narrative Medical decision making narrative: Patient here with daughter and mother for shortness of breath that started when he awoke this morning. He denies denies any chest pain. No palpitations. No prior history of atrial flutter atrial fibrillation. Patient is not on any blood thinners. He does have history of CHF. Denies any limb swelling. Patient sees Cardiology Dr. Byrd After history and exam, [facility] Medical records reviewed: Differential considered: Includes but not limited to Lab Test results independently reviewed as above. Pertinent findings: WBC 8.2 hemoglobin 16.0 INR 1.1 sodium 138 potassium 4.2 BUN 14 creatinine 1.13 GFR greater than 60 calcium 9.4 troponin less than 0.012 BNP 282 magnesium 2.0 Independently reviewed EKG possible atrial flutter/atrial fibrillation rate 124 Imaging studies independently reviewed: Chest x-ray no acute finding Consultations: 3:37 p.m.. Spoke with patient's scientific investigator dr byrd, since patient has been in symptoms less than 48 hours, give adenosine 6 mg to slow heart rate down to see if atrial fibrillation or atrial flutter if so give Eliquis 5 mg, will need to cardiovert. Stop aspirin if starting Eliquis. 4:01 p.m.. I spoke with scientific investigator dr byrd, no change with the Adenocard 6 mg. He would like now 12 mg 6:15 p.m.. I spoke with Cardiology, Dr. Borrego, she has reviewed rhythm strips 12 mg dose, appears to be atrial flutter. Patient should be cardioverted. Admitted overnight. Start on amiodarone drips, echocardiogram in the morning. Amiodarone drip 150 mg IV now then 1 milligram/minute for 6 hours then 0.5 mg of minute for 18 hours. Then 400 mg by mouth twice a day for a week then 200 mg daily. Reduce Toprol XL down to 25 mg once a day 7:38 p.m. spoke primary care on-call for Dr. Pascual, Dr. Roper, she will admit patient. Reviewed with her amiodarone regimen and medication changes. Re-evaluations: 5:00 p.m.. Spoke with patient and family, we will need to try to do Adenocard again. They do understand we do have some critical patients at this time and the delay is due to critical patients. They do understand. 6:30 p.m.. Spoke with patient, daughter at bedside. They do agree and understand need for cardioversion. Risks and benefits reviewed with them. Written consent provided for procedural sedation and cardioversion. 7:00 p.m.. Patient awake alert oriented x4. He does not recall the cardioversion event. He is pain-free. He is in sinus rhythm. Discussion: Appropriate for cardioversion and admission. I did review with cardiology services. Patient's symptoms less than 40 hours. Eliquis given. Diagnosis: Atrial flutter Critical Care Time Critical Care Time Attestation: Critical Care Time 35 minutes: Critical care time is separate from other billable procedures. This critical care time includes consultation with family and other consulting doctors, review of records, and interpretation of data from labs, EKGs, imaging, etc. Discharge Plan Departure Patient Disposition: Admitted as Observation Clinical Impression: Atrial fibrillation/flutter Admit Date/Time: 08/14/24 19:38 Admit Provider: Priyanka Roper
[2024-08-14 15:30] LABS: NT-proBNP (BNP-Adult 18+) 282 pg/mL (<450); Troponin I < 0.012 ng/mL (0.01-0.034)
--- NOTE | 2024-08-14 15:46 | EKG_ITS ---
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
[2024-08-14] MEDS: ADENOSINE 6 MG/2 ML VIAL IV (15:57)
--- NOTE | 2024-08-14 16:02 | PC.NURSE ---
Dr Jackson ordered adenosine for patient, hooked patient up to continous EKG, RT and Dr Jackson at bedside, code cart in room. Adenosine given at 1557 with no affect to heart rate
[2024-08-14] MEDS: ADENOSINE 6 MG/2 ML VIAL 12 MG IV (18:00)
--- NOTE | 2024-08-14 18:31 | PC.NURSE ---
Contact information for both Daughters provided at patients request to admitting to change contacts. has dementia and is not a good historian.
[2024-08-14] MEDS: APIXABAN 5 MG TABLET PO (18:39)
[2024-08-14] MEDS: propofoL 200 MG/20 ML VIAL 75 MG IV (18:51)
[2024-08-14] MEDS: AMIODARONE 150 MG/100 ML PIGGYBACK 600 MG IV (19:35)
[2024-08-14] MEDS: AMIODARONE 360 MG/200 ML PIGGYBACK 33.33 MG IV (19:55)
--- NOTE | 2024-08-14 22:20 | DI.ECHO.S_ITS ---
[place] : : [address] : : [place] : : [id number] : : Phone: [phone] Echocardiogram Report + + :Name: BRYCE CARRASCO Study Date: 08/15/2024 Height: 72 in : [id number] ReadingLocation: Weight: 165 lb : : Gender: Male BSA: 2.0 m2 : :: 1940 Age: 83 yrs BP: 107/59 mmHg: :Reason For Study: ATRIAL FLUTTER : :Ordering Physician: MARIA M, : :YANA Performed By: Angie Bower : :Referring: YANA FRANZ : + + Interpretation Summary The ejection fraction is estimated to be 55-60%. There has been no significant change since the previous exam. Procedure: The study quality was technically limited. Images were not obtained from all of the standard acoustic windows due to the limited scope of the study. The study quality was technically adequate. Comparison is made with the echocardiogram of 07/11/2024. The patient was in sinus bradycardia with heart rates between 59-61 bpm during the exam. Left Ventricle: The left ventricle is normal in size and wall thickness. The ejection fraction is estimated to be 55-60%. There has been no significant change since the previous exam. Diastolic parameters suggest probable normal left ventricular diastolic function and normal filling pressures. Right Ventricle: The right ventricle is normal size. Atria: The left atrium is mildly dilated. Aortic Valve: The aortic valve is trileaflet. The aortic valve opens well. Tricuspid Valve: There is mild tricuspid regurgitation. Pericardium/ Pleura There is no pericardial effusion. MMode/2D Measurements & Calculations LVIDd: 5.7 cm LA A2 area: 26.5 cm2 LVIDs: 4.2 cm LA A4 area: 17.1 cm2 FS: 27.3 % LA length (vol): 5.4 cm IVSd: 0.87 cm LA vol: 71.7 ml LVPWd: 0.96 cm LA vol index: 36.5 ml/m2 LV guerra. diameter/BSA (cm/m^2): 2.9 LV sys. diameter/BSA (cm/m^2): 2.1 RVD1 (basal): 3.4 cm Doppler Measurements & Calculations MV E max haider: 58.2 cm/sec MV A max haider: 49.5 cm/sec MV E/A: 1.2 Med Peak E' Haider: 5.9 cm/sec E/E' med: 9.9 Lat Peak E' Haider: 10.4 cm/sec E/E' lat: 5.6 E/e' average: 7.8 MV dec time: 0.26 sec Reading Physician:01:28 PM
[2024-08-14 22:49] LABS: MRSA (Nasal) PCR NOT DETECTED (Not Detect)
[2024-08-15] VITALS (43 sets, daily range): BP systolic 89–141; BP diastolic 47–68; PULSE 51–73; TEMP 36.6; O2SAT 94–100
[2024-08-15] MEDS: ATORVASTATIN 20 MG TABLET PO ×2 (00:55→22:06)
[2024-08-15] MEDS: AMIODARONE 360 MG/200 ML PIGGYBACK 16.7 MG IV ×2 (01:50→13:31)
[2024-08-15 04:52] LABS: Add Manual Diff / Slide Review NO; Basophils Absolute Auto 100 /uL (0-100); Basophils Percent Auto 0.7 % (0-2); Eosinophils Absolute Auto 200 /uL (0-450); Eosinophils Percent Auto 1.9 % (2-4); Hematocrit 46.6 % (41-53); Hemoglobin 15.8 g/dL (13.5-17.5); Lymphocytes Absolute Auto 2600 /uL (1100-4500); Lymphocytes Percent Auto 30.6 % (25-40); Mean Corpuscular Hemoglobin 31.1 PG (26-34); Mean Corpuscular Volume 91.5 fL (80-100); Monocytes Absolute Auto 900 /uL (0-900); Monocytes Percent Auto 11.3 % (3-14); Neutrophils Absolute Auto 4600 /uL (1500-7000); Neutrophils Percent Auto 55.5 % (50-75); Platelet Count 184 X10^3/uL (150-400); Red Blood Cell Count 5.09 X10^6/uL (4.5-5.9); Red Cell Distribution Width 14.2 % (11.6-14.8); White Blood Cell Count 8.3 X10^3/uL (4.5-11.0)
[2024-08-15 05:10] LABS: BUN Creatinine Ratio 14.4 (6-22); Blood Urea Nitrogen 15 mg/dL (9-20); Calcium 9.1 mg/dL (8.4-10.2); Carbon Dioxide 28 mmol/L (22-32); Chloride 103 mmol/L (98-107); Estimated Glomerular Filt Rate > 60 mL/min (>60); Glucose 98 mg/dL (70-99); HEMOLYSIS < 15 (0-50); Potassium 4.4 mmol/L (3.4-5.1); Sodium 139 mmol/L (137-145)
[2024-08-15] MEDS: APIXABAN 5 MG TABLET 2.5 MG PO (09:24)
[2024-08-15] MEDS: METOPROLOL ER 50 MG TABLET 25 MG PO ×2 (09:24→22:03)
--- NOTE | 2024-08-15 13:15 | PM.HP.1 ---
History of Present Illness History of Present Illness Date Patient Seen: 08/15/24 Time Patient Seen: 13:16 Date of Onset of Symptoms: 08/14/24 Chief complaint: chest pain Narrative: This is a very pleasant 83-year-old male who presents to the ER with fairly sudden onset of shortness of breath on the date of admission 08/14/2024. He was found to be in atrial flutter. This was new for him. Patient is followed by Dr. Pascual as his PCP and Dr. Colon as his primary charge account authorizer. Patient does not have a history of atrial flutter and was determined after 6 mg of adenosine and 12 mg of adenosine that he did truly have atrial flutter and therefore he was cardioverted and has remained in sinus rhythm. Consultation with Dr. Borrego who was the on-call charge account authorizer recommended loading with amiodarone and patient was admitted to the hospital for further treatment. Patient currently is still in sinus rhythm in his being loaded with amiodarone. His BNP and CK and troponin were all negative on admit and he was really not having any chest pain per se. Patient continues not to have any chest pain and shortness of breath has improved. Patient has had no other symptoms prior to this no fever or cough or chills. Patient has not had any change in his activity. No GI symptoms 12 point review of systems is otherwise negative Medical History Cataracts, bilateral Chronic GERD Diverticular disease Diverticulitis of intestine (10/15/14) DJD of both shoulders Facet arthropathy, lumbar Impingement syndrome of left shoulder Lumbar radiculopathy Rotator cuff arthropathy Rotator cuff arthropathy of right shoulder 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 Shoulder impingement syndrome Urethral stricture Surgical History H/O ileostomy S/P TURP Family History Father Heart disease Social History household members: spouse Smoking Status: Never smoker Current medications are metoprolol 50 mg twice daily XL Oxycodone acetaminophen 1 tablet every 4 hours as needed Tylenol 650 mg every 6 hours as needed Rosuvastatin 10 mg daily Entresto 49 mg/51 mg 1 tablet twice daily Spironolactone 12.5 mg daily PFSH Medical History Degenerative joint disease of knee Scoliosis Impingement syndrome of left shoulder Chronic GERD DJD of both shoulders Urethral stricture Facet arthropathy, lumbar 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 Rotator cuff arthropathy Cataracts, bilateral Rotator cuff arthropathy of right shoulder Shoulder impingement syndrome Lumbar radiculopathy Diverticular disease Diverticulitis of intestine (10/15/14) Surgical History H/O ileostomy S/P TURP Family History Father Heart disease Social History household members: spouse Smoking Status: Never smoker Meds Home Medications and Allergies Home Medications ?Medication ?Instructions ?Recorded ?Confirmed ?Type acetaminophen 325 mg tablet 650 mg PO Q6H PRN Pain (Scale 02/11/20 08/15/24 History (Tylenol) Score 1-3) metoprolol succinate 50 mg 50 mg PO BID 01/21/22 08/15/24 History tablet,extended release 24 hr rosuvastatin 10 mg tablet 10 mg PO BEDTIME 01/21/22 08/15/24 History spironolactone 25 mg tablet 12.5 mg PO DAILY 07/08/22 08/15/24 History oxycodone-acetaminophen 5 mg-325 1 tab PO Q4H PRN pain 08/21/22 08/15/24 History mg tablet sacubitril 49 mg-valsartan 51 mg 1 tab PO BID 08/18/23 08/15/24 History tablet (Entresto) Allergies Allergy/AdvReac Type Severity Reaction Status Date / Time codeine (CODEINE) AdvReac Mild UPSET Verified 06/18/24 08:28 STOMACH Exam Vital Signs (past 8 hours): - 08/15/24 06:00 Pulse Rate 59 L Blood Pressure 104/50 L Pulse Oximetry 96 Oxygen Delivery Method Room Air Oxygen Flow Rate 0 Narrative Exam Narrative: Afebrile vital signs are stable but patient has had some low blood pressures. Patient states his blood pressure typically is in the upper 90s systolic but that is where it has been since he has was placed on the all the medications for his congestive heart failure He is alert and oriented x3 and an excellent historian HEENT is unremarkable Neck: Supple without adenopathy Chest: Clear to auscultation without wheezes rhonchi or crackles Cor: Regular rate and rhythm at 60 with distant S1-S2 Abdomen: Positive bowel sounds, soft, nontender, nondistended Extremities no edema pulses intact Neurologic exam nonfocal Objective Labs 08/15/24 04:21 08/15/24 04:21 Labs: Laboratory Results - last 24 hr 08/14/24 08/14/24 08/15/24 14:56 21:10 04:21 WBC 8.2 8.3 RBC 5.12 5.09 Hgb 16.0 15.8 Hct 46.2 46.6 MCV 90.3 91.5 MCH 31.2 31.1 MCHC 34.6 34.0 RDW 13.9 14.2 Plt Count 211 184 Neut % (Auto) 58.4 55.5 Lymph % (Auto) 28.0 30.6 [place] % (Auto) 10.8 11.3 Eos % (Auto) 2.1 1.9 L Baso % (Auto) 0.7 0.7 Neut # (Auto) 4800 4600 Lymph # (Auto) 2300 2600 [place] # (Auto) 900 900 Eos # (Auto) 200 200 Baso # (Auto) 100 100 PT 12.1 INR 1.1 Sodium 138 139 Potassium 4.2 4.4 Chloride 106 103 Carbon Dioxide 21 L 28 BUN 14 15 Creatinine 1.13 1.04 Estimated GFR > 60 > 60 BUN/Creatinine Ratio 12.4 14.4 Glucose 121 H 98 Lactate 2.0 Calcium 9.4 9.1 Magnesium 2.0 Total Bilirubin 0.9 AST 30 ALT 20 Alkaline Phosphatase 75 Troponin I < 0.012 NT-Pro-B Natriuret Pep 282 Total Protein 7.2 Albumin 4.3 Globulin 2.9 Albumin/Globulin Ratio 1.5 Nasal Screen MRSA (PCR) Not detected Assessment & Plan Assessment & Plan narrative: 83-year-old male with new onset atrial flutter with RVR and acute symptoms of shortness of the breath with that. Patient was cardioverted in the ER and remains in sinus rhythm. Assessment 1. Atrial flutter, new onset with RVR now in sinus rhythm. CK troponin other workup negative for any acute etiologies of the same. Plan: Patient will continue as inpatient for his amiodarone bolus as per Cardiology. Dr. Borrego, she has reviewed rhythm strips 12 mg dose, appears to be atrial flutter. Patient should be cardioverted. Admitted overnight. Start on amiodarone drips, echocardiogram in the morning. Amiodarone drip 150 mg IV now then 1 milligram/minute for 6 hours then 0.5 mg of minute for 18 hours. Then 400 mg by mouth twice a day for a week then 200 mg daily. Reduce Toprol XL down to 25 mg once a day Metoprolol has been decreased to 25 mg twice daily as recommended Outpatient medications of rosuvastatin Entresto and spironolactone will be continued Reviewed echo from 07/11/2024 and he has a limited echo pending. Pending these results we will workup further Will continue Eliquis 2.5 b.i.d. Will start 400 mg twice daily of the amiodarone tonight as soon as he drip is done and we will likely send him home in a.m. Assessment 2. Degenerative joint disease Plan: Will continue Tylenol and outpatient oxycodone as needed. Assessment 3. Diverticulosis without acute symptoms Plan: Will follow Assessment 4. DVT prophylaxis patient on Eliquis which was started yesterday Assessment 5. Hyperlipidemia Plan: Will continue outpatient rosuvastatin Assessment 6. Chronic systolic heart failure of unclear etiology with recent echo that shows improvement in his EF and there was no evidence of acute exacerbation at this time. His initial labs on presentation were normal including his BNP in his cardiac enzymes. Repeat limited echo is pending Assessment 7. Hypotensive suspect chronic due to heart failure medications but we will watch closely due to amiodarone loading etc. Code status is full code 75 minutes was spent with patient reviewing his chart and workup in the ER as well as in the clinic and in the hospital and meeting with patient and discussing with physicians and nursing and formulating a plan and documentation Time-Based Coding :: [TOTAL MINUTES] spent with patient and on the chart (including review of chart, obtaining history, exam, reviewing outside data, placing orders, documenting exam and treatment plan, and counseling patient) on [DATE].
[2024-08-15] MEDS: SPIRONOLACTONE 25 MG TABLET 12.5 MG PO (13:34)
[2024-08-15] MEDS: Sacubitril-Valsartan [Entresto] 49-51 mg tab 1 EACH PO ×2 (13:43→22:10)
--- NOTE | 2024-08-15 15:37 | CM.DANOTE ---
Initial DCP Assessment Note Pt is an 83 yo M, resident of [place], arrives with SOB, chest pain, admitted to ICU for monitoring and amiodarone bolus, echo pending. PCP: Saji Pascual Payer: SARAHI/JAIDENP Reviewed chart, Dr Molina rounded today; SAMUEL 08/16. Met w/patient who reports he lives independently with his , whom he cares for due to her dementia. Provided the Senior Resource Guide. Patient will be hiring in home care soon to assist in the care of his . No barriers identified at this time to patient's safe discharge home w/close outpatient f/u recommended. According to patient- brother to transport home. CM team will plan to follow clinical course closely in case any DC needs or concerns arise. NEELIMA Monae Discharge Planning/Care Management CM Discharge Assessment Start: 08/14/24 21:21 Freq: Status: Active Protocol: Document 08/15/24 15:32 NATALEE (Rec: 08/15/24 15:37 NATALEE [id number]) Discharge Planning Assessment Assigned Discharge NEELIMA Schneider Headlight Adjuster DPOA/Assigned Yoly Fletcher, daughter (spouse has dementia) Designee Name Contact Information [phone] Advance Directives? Yes Advance Directives Yes on File History Provided By Patient,Medical Record Prior Living House Arrangements Household Members spouse Type of Drives own vehicle transporation used prior to admit Independent with ADL Yes 's Is patient alert and Yes oriented? Caregiver for Yes: Spouse w/dementia Another Discharge Plan Home Transportation Family Arrangement Referrals Initiated None needed
[2024-08-15] MEDS: ACETAMINOPHEN 325 MG TABLET 650 MG PO (16:06)
[2024-08-15] MEDS: AMIODARONE 200 MG TABLET 400 MG PO (20:47)
[2024-08-15] MEDS: APIXABAN 5 MG TABLET PO (22:10)
[2024-08-16] VITALS (17 sets, daily range): BP systolic 111–124; BP diastolic 60–65; PULSE 48–80; RESP 16; TEMP 36.2; O2SAT 89–99
[2024-08-16 04:55] LABS: Add Manual Diff / Slide Review NO; Basophils Absolute Auto 0 /uL (0-100); Basophils Percent Auto 0.4 % (0-2); Eosinophils Absolute Auto 200 /uL (0-450); Eosinophils Percent Auto 3.2 % (2-4); Hematocrit 45.6 % (41-53); Hemoglobin 15.6 g/dL (13.5-17.5); Lymphocytes Absolute Auto 2000 /uL (1100-4500); Mean Corpuscular HGB Conc 34.1 % (30-36); Mean Corpuscular Hemoglobin 31.2 PG (26-34); Mean Corpuscular Volume 91.4 fL (80-100); Monocytes Absolute Auto 800 /uL (0-900); Monocytes Percent Auto 10.5 % (3-14); Neutrophils Absolute Auto 4300 /uL (1500-7000); Neutrophils Percent Auto 58.9 % (50-75); Platelet Count 181 X10^3/uL (150-400); Red Blood Cell Count 4.99 X10^6/uL (4.5-5.9); Red Cell Distribution Width 14.1 % (11.6-14.8); White Blood Cell Count 7.3 X10^3/uL (4.5-11.0)
[2024-08-16 05:17] LABS: Alanine Aminotransferase 18 IU/L (<50); Albumin 4.1 g/dL (3.5-5.0); Albumin Globulin Ratio 1.4 (1.0-2.8); Alkaline Phosphatase 71 U/L (38-126); Aspartate Aminotransferase 26 IU/L (17-59); BUN Creatinine Ratio 15.8 (6-22); Blood Urea Nitrogen 15 mg/dL (9-20); Carbon Dioxide 27 mmol/L (22-32); Chloride 102 mmol/L (98-107); Estimated Glomerular Filt Rate > 60 mL/min (>60); Globulin 2.9 g/dL (1.7-4.1); Glucose 88 mg/dL (70-99); HEMOLYSIS < 15 (0-50); Potassium 4.1 mmol/L (3.4-5.1); Sodium 136 mmol/L (137-145)
[2024-08-16] MEDS: SPIRONOLACTONE 25 MG TABLET 12.5 MG PO (08:27)
[2024-08-16] MEDS: AMIODARONE 200 MG TABLET 400 MG PO (08:28)
[2024-08-16] MEDS: APIXABAN 5 MG TABLET PO (08:28)
[2024-08-16] MEDS: METOPROLOL ER 50 MG TABLET 25 MG PO (08:29)
[2024-08-16] MEDS: Sacubitril-Valsartan [Entresto] 49-51 mg tab 1 EACH PO (08:33)
--- NOTE | 2024-08-16 08:42 | PM.DS.1 ---
History of Present Illness History of Present Illness Date Patient Seen: 08/16/24 Time Patient Seen: 08:42 Chief complaint: chest pain Narrative: This is a very pleasant 83-year-old male who presents to the ER with fairly sudden onset of shortness of breath on the date of admission 08/14/2024. He was found to be in atrial flutter. This was new for him. Patient is followed by Dr. Pascual as his PCP and Dr. Colon as his primary mechanic field service. Patient does not have a history of atrial flutter and was determined after 6 mg of adenosine and 12 mg of adenosine that he did truly have atrial flutter and therefore he was cardioverted and has remained in sinus rhythm. Consultation with Dr. Borrego who was the on-call mechanic field service recommended loading with amiodarone and patient was admitted to the hospital for further treatment. Patient currently is still in sinus rhythm in his being loaded with amiodarone. His BNP and CK and troponin were all negative on admit and he was really not having any chest pain per se. Patient continues not to have any chest pain and shortness of breath has improved. Patient has had no other symptoms prior to this no fever or cough or chills. Patient has not had any change in his activity. No GI symptoms 12 point review of systems is otherwise negative Medical History Cataracts, bilateral Chronic GERD Diverticular disease Diverticulitis of intestine (10/15/14) DJD of both shoulders Facet arthropathy, lumbar Impingement syndrome of left shoulder Lumbar radiculopathy Rotator cuff arthropathy Rotator cuff arthropathy of right shoulder 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 Shoulder impingement syndrome Urethral stricture Surgical History H/O ileostomy S/P TURP Family History Father Heart disease Social History household members: spouse Smoking Status: Never smoker Current medications are metoprolol 50 mg twice daily XL Oxycodone acetaminophen 1 tablet every 4 hours as needed Tylenol 650 mg every 6 hours as needed Rosuvastatin 10 mg daily Entresto 49 mg/51 mg 1 tablet twice daily Spironolactone 12.5 mg daily Discharge Providers Provider Date of admission: 08/14/24 19:38 Discharge Date: 08/16/24 Primary care physician: Saji Pascual MD Consults: Cardiology in ER Discharge provider: Trudy Molina MD Summary Hospital Course Discharge Diagnosis: New onset atrial flutter status post cardioversion in the ER Hospital Course: Patient cardioverted in ER. Admitted for amiodarone loading which was done and patient remained in sinus rhythm throughout hospital stay. Eliquis anticoagulation initiated. Cardiac enzymes and bnp negative and echo showed improved ejection fraction, now normal. Patient was discharged home in improved and stable condition. Continue on all out patient meds except metoprolol decreased from 50 mg bid to 25mg bid. New meds: eliquis 5mg po bid and amiodarone 400mg bid for 6 more days and then 200mg daily Status at Discharge Cognitive/behavioral status at discharge: oriented Functional status at discharge: independent ambulation Overall status at discharge: patient is back to baseline Exam Vital Signs (past 8 hours): - 08/16/24 01:00 08/16/24 01:30 08/16/24 02:00 Temperature Pulse Rate 51 L 53 L 53 L Respiratory Rate Blood Pressure Pulse Oximetry 93 93 92 Oxygen Flow Rate 08/16/24 02:30 08/16/24 03:00 08/16/24 03:30 Temperature Pulse Rate 48 L 51 L 61 Respiratory Rate Blood Pressure Pulse Oximetry 92 89 L 95 Oxygen Flow Rate 08/16/24 04:00 08/16/24 04:01 08/16/24 04:01 Temperature Pulse Rate 52 L 52 L Respiratory Rate Blood Pressure 124/65 Pulse Oximetry 93 97 Oxygen Flow Rate 08/16/24 04:30 08/16/24 05:00 08/16/24 05:30 Temperature Pulse Rate 50 L 49 L 57 L Respiratory Rate Blood Pressure Pulse Oximetry 96 99 98 Oxygen Flow Rate 08/16/24 06:00 08/16/24 06:30 08/16/24 08:00 Temperature 97.1 F L Pulse Rate 51 L 52 L 57 L Respiratory Rate 16 Blood Pressure 111/60 Pulse Oximetry 96 95 98 Oxygen Flow Rate 0 Oxygen Delivery Method Room Air Oxygen Flow Rate 0 Narrative Exam Narrative: af vss HEENT wnl A and O x 3 neck is supple chest cta bilaterally cor rrr with distant s1/s2; no murmur abdomen benign ext wnl neuro non focal Objective Labs 08/16/24 04:12 08/16/24 04:12 Labs: Laboratory Results - last 24 hr 08/16/24 04:12 WBC 7.3 RBC 4.99 Hgb 15.6 Hct 45.6 MCV 91.4 MCH 31.2 MCHC 34.1 RDW 14.1 Plt Count 181 Neut % (Auto) 58.9 Lymph % (Auto) 27.0 [place] % (Auto) 10.5 Eos % (Auto) 3.2 Baso % (Auto) 0.4 Neut # (Auto) 4300 Lymph # (Auto) 2000 [place] # (Auto) 800 Eos # (Auto) 200 Baso # (Auto) 0 Sodium 136 L Potassium 4.1 Chloride 102 Carbon Dioxide 27 BUN 15 Creatinine 0.95 Estimated GFR > 60 BUN/Creatinine Ratio 15.8 Glucose 88 Calcium 9.0 Total Bilirubin 1.0 AST 26 ALT 18 Alkaline Phosphatase 71 Total Protein 7.0 Albumin 4.1 Globulin 2.9 Albumin/Globulin Ratio 1.4 PFSH Medical History Degenerative joint disease of knee Scoliosis Impingement syndrome of left shoulder Chronic GERD DJD of both shoulders Urethral stricture Facet arthropathy, lumbar 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 Rotator cuff arthropathy Cataracts, bilateral Rotator cuff arthropathy of right shoulder Shoulder impingement syndrome Lumbar radiculopathy Diverticular disease Diverticulitis of intestine (10/15/14) Surgical History H/O ileostomy S/P TURP Family History Father Heart disease Social History household members: spouse Smoking Status: Never smoker Discharge Assessment & Plan Assessment and Plan Assessment: aflutter new onset with RVR, resolved Chronic systolic heart failure improved DJD: no changes HTN stable Hyperlipidemia, no changes Plan of Treatment: Eliquis anticoagulation initiated. Cardiac enzymes and bnp negative and echo showed improved ejection fraction, now normal. Patient was discharged home in improved and stable condition. Continue on all out patient meds except metoprolol decreased from 50 mg bid to 25mg bid. New meds: eliquis 5mg po bid and amiodarone 400mg bid for 6 more days and then 200mg daily appointment with dr. pascual next week appointment with cardiology Discharge Plan Discharge Plan Patient Disposition: Home Nursing Discharge Comment: You will take your new prescriptions, amiodarone, metoprolol, and Eliquis, twice a day. You already received your morning dose today , August 16 but will need your evening dose. You will stop taking the metoprolol succinate 50 mg extended release Discharge orders & Medications Prescriptions: New amiodarone 200 mg Tablet 400 mg PO BIDWM Qty: 60 1RF metoprolol succinate 50 mg Tablet Extended Release 24 Hr 25 mg PO BID Qty: 60 0RF Eliquis 5 mg Tablet 5 mg PO BID Qty: 60 0RF Continued oxycodone-acetaminophen 5-325 mg tablet 1 tab PO Q4H PRN (Reason: pain) spironolactone 25 mg tablet 12.5 mg PO DAILY acetaminophen [Tylenol] 325 mg tablet 650 mg PO Q6H PRN (Reason: Pain (Scale Score 1-3)) rosuvastatin 10 mg tablet 10 mg PO BEDTIME Entresto 49-51 mg tablet 1 tab PO BID Discontinued metoprolol succinate 50 mg tablet extended release 24 hr 50 mg PO BID Follow up/Referrals: Saji Pascula MD [Primary Care Provider, [facility]] Discharge Health Status Multidrug resistant organism: No MDRO Diet/Activity/Treatments Diet: Low-sodium Visit Report/Discharge Packet Instructions: Atrial Fibrillation, DI for Atrial Fibrillation Stand Alone Forms: Patient Portal/API, Stroke Signs & Symptoms Discharge Data Primary Care Provider: Saji Pascual
--- NOTE | 2024-08-16 10:13 | CM.DPNOTE ---
DC Note Discharge home via family to transport. No needs from this SW team identified. NATALEE
--- NOTE | 2024-08-16 10:53 | PC.NURSE ---
Discharge: pt agreeable to discharge. Education provided to pt on new medications and change in old medication. Pt instructed to maintain fall precautions, educated on s/s of stroke, risk of bleeding with new prescription blood thinner. Pt made own follow up appointment with PCP. IVs discontinued, telemetry removed, pt wheeled via w/c to private vehicle with family member at approximately 1019.
--- NOTE | 2024-08-17 06:35 | EKG_ITS ---
[id number] [address] Test Date: 2024-08-14 Pat Name: Evan Ojeda Department: Room: 227 Gender: Male Electronic Publishing Specialist: JAMIE : 1940 Requested By: Order Number: [id number] Reading MD: Renzo Adkins MD Measurements Intervals [place] Rate: 82 P: 40 MS: 200 QRS: -33 QRSD: 94 T: 0 QT: 390 QTc: 455 Interpretive Statements Normal sinus rhythm Left axis deviation Electronically Signed On 08-20-2024 15:04:09 PDT by Renzo Adkins MD
== END 2024-08-16 10:19 | disposition home or self-care (01) | DRG 309 ==
LOC: ED 18:41 → ICU 08-15 07:38 → AC 08-15 11:55
PROVIDERS: Family Medicine; Internal Medicine; Admitting Provider Family Medicine; Emergency Provider Emergency Medicine; PCP Family Medicine; Visit Provider Family Medicine
DX: I48.92 Unspecified atrial flutter (principal); I50.22 Chronic systolic (congestive) heart failure; K57.90 Diverticulosis of intestine, part unspecified, without perforation or abscess without bleeding; E78.5 Hyperlipidemia, unspecified; I95.9 Hypotension, unspecified; M17.10 Unilateral primary osteoarthritis, unspecified knee; I11.0 Hypertensive heart disease with heart failure
CPT/HCPCS: 36415; 71045; 80048; 80053; 81003; 83605; 83735; 83880; 84484; 85025; 85610; 87797; 92960; 93005; 93307; 96365; 96375; 96376; 99152; 99285; 99291; J0153; J0282; J2704

== ENCOUNTER → 2025-02-18 15:29 | Outpatient (CLI) | payer MEDICARE, SELFPAY ==
[2025-02-04 12:52] VITALS: BMI 22.4
== END ==
PROVIDERS: PCP Family Medicine; Referring Provider Urology; Visit Provider Urology
DX: R39.9 Unspecified symptoms and signs involving the genitourinary system (principal)
CPT/HCPCS: 87086